=== PATIENT | female | born 1970 | race African-American/Black ===

== ENCOUNTER 2021-02-13 11:35 | Outpatient (REF) | payer MEDICARE, SELFPAY ==
--- NOTE | ~2021-02-13 | XR_ITS ---
EXAMINATION: XR LUMBOSACRAL SPINE CLINICAL INFORMATION: Sacrococcygeal disorders. COMPARISON: None TECHNIQUE: Three views of the lumbosacral spine. FINDINGS: Normal vertebral body alignment. The lumbar lordosis is maintained. No acute fracture or subluxation. No loss of vertebral body height. Mild loss of intervertebral disc height with tiny anterior endplate osteophytes at L3-L4 and L5-S1. Additional tiny anterior endplate osteophytes at L4-L5. Bilateral facet arthropathy at L3-S1. No lytic or blastic osseous lesion. IVC filter at the level of L2-L3. XR/XR lumbar spine 2-3V IMPRESSION: Mild degenerative disc disease at L3-S1 with bilateral facet arthropathy.
== END 2021-02-13 11:36 | disposition home or self-care (01) ==
LOC: HO.XRAY 11:35
PROVIDERS: PCP Nurse Practitioner Primary Care; Visit Provider Nurse Practitioner Primary Care
DX: M53.3 Sacrococcygeal disorders, not elsewhere classified (principal); R29.6 Repeated falls
CPT/HCPCS: 72100

== ENCOUNTER 2021-08-27 14:46 | Outpatient (REF) | payer MEDICARE, MEDICAID, SELFPAY ==
--- NOTE | ~2021-08-27 | MR_ITS ---
EXAMINATION: MR BRAIN WITHOUT AND WITH CONTRAST CLINICAL INFORMATION: History of breast cancer with brain metastasis. COMPARISON: Brain MRI 04/26/2014. TECHNIQUE: Multiplanar, multisequence imaging of the brain was performed before and after the intravenous administration of 10 mL of Gadavist. FINDINGS: No enhancing intracranial lesions are seen. There is no vasogenic edema, mass effect, or extra-axial fluid collection. Chronic encephalomalacia and gliosis is seen within the right lateral basal ganglia, insula, and temporal lobe. No recurrent mass is seen within this region. A 7 mm cavernous malformation is seen within the left frontal lobe. No perilesional edema is seen to suggest recent hemorrhage. A few punctate foci of susceptibility signal are seen in the bilateral cerebral hemispheres, nonspecific but presumably treatment related. The ventricles and sulci are commensurate with mild degree of diffuse brain parenchymal volume loss. The major arterial flow voids are preserved at the skull base. The extracranial structures are within normal limits allowing for postsurgical changes. MR/MR head/brain wo/w con IMPRESSION: No evidence of intracranial metastasis. A 7 mm cavernous malformation is seen in the left frontal lobe, new compared with 2013. No evidence of intracranial metastasis. Changes of prior craniotomy with encephalomalacia and gliosis seen in the right lateral basal ganglia, insula, and temporal lobe.
== END 2021-08-27 14:47 | disposition home or self-care (01) ==
LOC: HO.MRI 14:46
PROVIDERS: Visit Provider Nurse Practitioner Primary Care
DX: R26.81 Unsteadiness on feet (principal); R29.6 Repeated falls; Z85.3 Personal history of malignant neoplasm of breast
CPT/HCPCS: 70553; A9585

== ENCOUNTER 2023-02-18 12:59 | Outpatient (REF) | payer OTHER, MEDICAID, SELFPAY ==
--- NOTE | ~2023-02-18 | XR_ITS ---
EXAMINATION: XR ELBOW, LEFT CLINICAL INFORMATION: Left elbow pain 3 months COMPARISON: Left elbow radiograph from 06/30/2014 TECHNIQUE: AP, lateral, and oblique views of the left elbow. FINDINGS: Redemonstration of extensive hardware with plate and screw fixation involving the distal humerus and partially threaded screw involving the proximal ulna at the level of the olecranon. Orthopedic hardware is grossly intact. Questionable fracture fragment along the medial fixation plate best visualized on oblique image. This is not definitively visualized on prior imaging. Correlation with point tenderness. Enthesopathy along the triceps tendon insertion site. Joint spaces and alignment are otherwise maintained. Soft tissue swelling along the olecranon and proximal forearm. XR/XR elbow LT min 3V IMPRESSION: 1. Redemonstration of extensive hardware with plate and screw fixation involving the distal humerus and partially threaded screw involving the proximal ulna at the level of the olecranon. Orthopedic hardware is grossly intact. 2. Questionable fracture fragment along the medial fixation plate best visualized on oblique image. This is not definitively visualized on prior imaging. Correlation with point tenderness. 3. Enthesopathy along the triceps tendon insertion site. 4. Soft tissue swelling along the lateral and proximal forearm.
== END 2023-02-18 13:00 | disposition home or self-care (01) ==
LOC: HO.HHCX 12:59
PROVIDERS: Visit Provider Student in an Organized Health Care Education/Training Program
DX: M25.522 Pain in left elbow (principal)
CPT/HCPCS: 73080

== ENCOUNTER 2023-11-09 13:51 | Outpatient (AMB) | payer OTHER, MEDICAID, SELFPAY ==
--- NOTE | 2023-11-09 13:54 | A.OFFVIS_ITS ---
Intake Visit Reasons: N/P LT elbow pain & elbow olecranon bursitis. Intake Note: Hanh is a 53 year old female who presents today as a new patient for a evaluation of her left elbow pain. Patient reports ongoing pain for a about 3 months due to a fall. She states having a stinging sensation right on the elbow. Patient expresses having numbness and tingling off and on for about 3 months. Patient has tried icing and heat with no relief. Allergies Penicillins Allergy (Severe, Verified 11/09/23 13:59) UNRESPONSIVENESS aspirin [Aspirin] Allergy (Mild, Verified 11/09/23 13:59) SOUR STOMACH oxycodone [From Percocet] Allergy (Mild, Verified 11/09/23 13:59) ITCH, itching (moderate) acetaminophen [Tylenol] Allergy (Unknown, Verified 11/09/23 13:59) itching (moderate) penicillin G Allergy (Unknown, Verified 11/09/23 13:59) Unknown BuPROPion HCl Allergy (Unknown, Uncoded 02/06/20 00:00) rash,hives (severe) Penicillins Allergy (Unknown, Uncoded 03/22/20 15:09) Unknown HPI HPI N/P LT elbow pain & elbow olecranon bursitis.: Details: 53-year-old female who presents in the office today, as a new patient, for an evaluation of left elbow pain. Patient was seen by Family Medicine on 09/25/2023 status post a fall 3 months ago, in 06/2023. While in the office today the patient reports a fall about 5 months ago. She states she has had ongoing pain for the past 3 months. She reports a stinging sensation in the right elbow. Confirms intermittent numbness and tingling for the past 3 months. Confirms the use of ice and heat with no relief. Her reports they were applying an NORMAN wrap but was told to discontinue due to a break in the skin. She reports the break in the skin continues to ?leak?. Patient is was being followed by wound care for a small abrasion on the left elbow with delayed healing. Patient was previously prescribed Lidocaine topical cream. Patient has a history of a left distal humerus, medial and lateral plating, as well as fixation of the olecranon. Patient is wheelchair bound. [facility] Social History (Updated 05/20/24 @ 14:02 by Madelin Odonnell Alcohol intake: never Patient Tobacco Use Status: Current everyday Tobacco user Cigarette Packs Per Day: 1 Review of Systems Const All systems reviewed & are unremarkable except as noted in HPI and below Physical Exam Const General: cooperative and no acute distress Orientation/consciousness: patient oriented x3 Resp Effort & Inspection: normal respiratory effort and able to speak in complete sentences Cardio Peripheral pulses: Peripheral pulses 2+ throughout Skin General skin exam: no rashes or lesions noted Neuro General: patient oriented x3 Extrem Other: Left elbow: Dime sized area of skin irritation over the olecranon bursa. No active drainage. No surrounding erythema or edema. Patient has limited ROM from her prior ORIF, she is at baseline during today?s office exam. Assessment & Plan Assessment & Plan (1) Olecranon bursitis, left elbow: Code(s): M70.22 - Olecranon bursitis, left elbow Category: Medical Plan Ms. Clarke is a 53-year-old female who presents in the office today, as a new patient, for an evaluation of left elbow pain. Patient was seen by Family Medicine on 09/25/2023 status post a fall 3 months ago, in 06/2023. While in the office today the patient reports a fall about 5 months ago. She states she has had ongoing pain for the past 3 months. She reports a stinging s ensation in the right elbow. Confirms intermittent numbness and tingling for the past 3 months. Confirms the use of ice and heat with no relief. Her reports they were applying an NORMAN wrap but was told to discontinue due to a break in the skin. She reports the break in the skin continues to ?leak?. Patient is was being followed by wound care for a small abrasion on the left elbow with delayed healing. Patient was previously prescribed Lidocaine topical cream. Patient has a history of a left distal humerus, medial and lateral plating, as well as fixation of the olecranon. Patient is wheelchair bound. Patient was dressed with nonstick gauze, ABD and NORMAN wrapped in the office today. The NORMAN wrap is to be used to apply pressure to the area. Patient was educated on proper wrapping, and this was demonstrated in the office today. She was instructed to perform daily dressing changes and supplies were given to her to stop the olecranon bursa from draining. She was educated on signs of infection, which are as follows but not limited to erythema, edema, drainage, or warmth. If she is to experience any of these symptoms, she must contact the office immediately or present to the ED. Due to the patient being wheelchair bound I strongly recommend the use of padding and changing position to help relieve weight and pressure being added to the left elbow. Patient was educated she is able to take OTC Tylenol or Advil for pain. Follow up will be PRN, or sooner if needed. X-rays of the left elbow which were obtained while in the office today and were reviewed by me, Ruby Miranda PA-C, revealed intact orthopedic hardware with good alignment. Orders: Orders XR elbow LT min 3V 11/09/23 M25.529 - Pain in unspecified elbow Patient Instructions: Scribed by Blanca Crystal, certified medical records coder, for Ruby Miranda PA-C on 11/09/2023 at 2:28 pm, EST. Coding Level of Care Code New Pt Level 3 (21588) Diagnoses Olecranon bursitis, left elbow M70.22
== END 2023-11-09 14:48 | disposition home or self-care (01) ==
PROVIDERS: PCP Nurse Practitioner Primary Care; Visit Provider Physician Assistant
DX: M70.22 Olecranon bursitis, left elbow (principal)
CPT/HCPCS: 99203

== ENCOUNTER 2023-11-09 13:51 | Outpatient (REF) | payer MEDICARE, MEDICAID, SELFPAY ==
--- NOTE | ~2023-11-09 | XR_ITS ---
EXAMINATION: XR ELBOW, LEFT CLINICAL INFORMATION: Pain and unspecified elbow. COMPARISON: 02/18/2023, 06/30/2014. TECHNIQUE: Four views of the left elbow. FINDINGS: The bones are diffusely demineralized. Redemonstration of extensive hardware with plate and screw fixation transfixing the distal humerus and partially threaded screw involving the proximal ulna at the level of the olecranon. There has been development of increased lucency surrounding the [id number] portion of the ulnar component of the prosthesis when compared with exams dating back to 06/30/2014. Previously questioned fracture fragment along the medial fixation plate is best visualized on the oblique image as noted for exam of 02/18/2023 and was not appreciated on exam of 06/30/2014. Redemonstration of enthesopathy along the triceps tendon insertion site. XR/XR elbow LT min 3V IMPRESSION: Redemonstration of extensive hardware with plate and screw fixation transfixing the distal humerus and partially threaded screw involving the proximal ulna at the level of the olecranon. There has been development of increased lucency surrounding the [id number] portion of the ulnar component of the prosthesis when compared with exams dating back to 06/30/2014. Previously questioned fracture fragment along the medial fixation plate is best visualized on the oblique image as noted for exam of 02/18/2023 and was not appreciated on exam of June 30, 2014. This study was presented Thursday, November 23, 2023 for interpretation. PSA staff will provide results to referring provider at this time.
== END 2023-11-09 13:52 | disposition home or self-care (01) ==
LOC: HO.HOSX 13:51
PROVIDERS: PCP Nurse Practitioner Primary Care; Visit Provider Physician Assistant
DX: M70.22 Olecranon bursitis, left elbow (principal); M25.522 Pain in left elbow
CPT/HCPCS: 73080; 99202

== ENCOUNTER 2023-11-12 16:14 | Outpatient (REF) | payer MEDICARE, MEDICAID, SELFPAY ==
[2023-11-13 11:10] LABS: Bacterial Vaginosis PCR NEGATIVE (Negative); Candida Group PCR NOT DETECTED (Not Detect); Candida glab krusei PCR NOT DETECTED (Not Detect); Trichomonas vaginalis PCR NOT DETECTED (Not Detect)
== END 2023-11-12 16:15 | disposition home or self-care (01) ==
LOC: HO.HHCLNP 16:14
PROVIDERS: Visit Provider Nurse Practitioner Primary Care
DX: N89.8 Other specified noninflammatory disorders of vagina (principal)
CPT/HCPCS: 0352U; 87086

== ENCOUNTER 2024-09-27 16:53 | Outpatient (REF) | payer OTHER, SELFPAY ==
--- OUTSIDE RECORDS SUMMARY | 2024-09-27 19:12 | XMS_ITS | Clinical Summary ---
Author Organization [employer] Address [address] [facility] [address] [place] [address] Care Team Providers Care Carpentry Supervisor Name Role Phone Asuncion Contreras Primary Care Provider [phone] Allergies Active Allergy Reactions Criticality Noted Date Comments Acetaminophen 09/30/2016 Other reaction(s): itching Bupropion Rash High 12/08/2012 Other reaction(s): Hives / Skin Rash Oxycodone 09/30/2016 Other reaction(s): itching Penicillins 11/23/2012 Medications acitretin (Soriatane) 25 MG capsule Take 1 capsule by mouth in the morning. 01/31/20 22 Active Emollient (Eucerin Original Healing) lotion Use twice daily to feet 12/06/19 22 Active exemestane (Aromasin) 25 MG chemo tablet take 1 tablet (25MG) by oral route every morning Active QUEtiapine (SEROquel) 300 MG tablet Take 1 tablet by mouth in the morning. Active Banophen 50 MG capsule Take 1 capsule by mouth at bedtime. 05/08/20 22 Active ketoconazole (NIZOral) 2 % shampoo APPLY BY TOPICAL ROUTE EVERY 3 DAYS TO SCALP(S), LATHER, LEAVE IN PLACE FOR 5 MINUTES, AND THEN RINSE OFF WITH WATER 04/30/20 22 Active traZODone (Desyrel) 100 MG tablet Take 2 tablets by mouth in the evening. 03/27/20 22 Active lamoTRIgine (LaMICtal) 150 MG tablet Take 2 tablets by mouth 1 (one) time each day. Active Acetaminophen Extra Strength 500 MG tablet TAKE 1 TABLET BY MOUTH 3 TIMES A DAY,X30 DAYS 07/11/19 23 Active naltrexone (Depade) 50 MG tablet TAKE 1 TABLET BY MOUTH ONCE A DAY 06/30/19 23 Active perphenazine 4 MG tablet TAKE 1 TABLET BY MOUTH DAILY AND 2 TABLET BY MOUTH DAILY AT BEDTIME 06/30/19 23 Active betamethasone valerate (Valisone) 0.1 % ointment Apply topically if needed in the morning and at bedtime (psoriasis). 45 g 2 09/13/19 23 Active albuterol 108 (90 Base) MCG/ACT inhaler Inhale 2 puffs every 4 (four) hours if needed for wheezing. 18 g 1 09/13/19 23 Active cholecalciferol 10 MCG (400 UNIT) tabletIndicatio ns:Vitamin D deficiency TAKE 1 TABLET ONCE DAILY 90 tablet 1 09/03/19 24 Active ondansetron (Zofran) 4 MG tablet 09/21/19 24 Active omeprazole (PriLOSEC) [address] capsuleIndicati ons:Chronic GERD TAKE 1 CAPSULE (20 MG) BY MOUTH BEFORE BREAKFAST AND BEFORE EVENING MEAL. 60 capsule 4 05/25/20 24 Active metoprolol succinate XL (Toprol-XL) 50 MG 24 hr tabletIndicatio ns:Primary hypertension TAKE 1 TABLET (50 MG) BY MOUTH ONCE PER DAY. DO NOT CRUSH OR CHEW. 30 tablet 08/26/19 25 Active gabapentin (Neurontin) 300 MG capsuleIndicati ons:Cervical stenosis of spine TAKE 2 CAPSULES BY MOUTH THREE TIMES EVERY DAY 180 capsule 08/26/19 25 Active apixaban (Eliquis) 5 MG tabletIndicatio ns:History of pulmonary embolism TAKE 1 TABLET (5 MG) BY MOUTH IN THE MORNING AND AT BEDTIME. 60 tablet 09/13/19 25 Active senna-docusate (Stool Softener/Laxati ve) 8.6-50 MG tablet TAKE 2 TABLETS BY MOUTH EVERY DAY FOR CONSTIPATION 60 tablet 3 09/14/19 25 Active tamsulosin (Flomax) 0.4 MG 24 hr capsule TAKE 1 CAPSULE BY MOUTH EVERY DAY 30 capsule 5 09/22/19 25 Active Multiple Vitamins-Minera ls (CertaVite Senior/Antioxid ant) tablet TAKE 1 TABLET BY MOUTH EVERY DAY 30 tablet 5 09/22/19 25 Active nitrofurantoin, macrocrystal-mo nohydrate, (Macrobid) 100 MG capsuleIndicati ons:Hematuria, unspecified type Take 1 capsule (100 mg) by mouth 2 times daily for 5 days. 10 capsule 09/27/19 25 2024 Active lidocaine (Xylocaine) 5 % ointmentIndicat ions:Chronic elbow pain, left Apply topically if needed (pain). 50 g 2 09/25/19 24 2024 tamsulosin (Flomax) 0.4 MG 24 hr capsule TAKE 1 CAPSULE BY MOUTH EVERY DAY 30 capsule 5 04/06/20 24 2024 Discontinued Multiple Vitamins-Minera ls (PX Complete Senior Multivits) tablet TAKE 1 TABLET BY MOUTH EVERY DAY 30 tablet 5 04/06/20 24 2024 Discontinued senna-docusate (Stool Softener/Laxati ve) 8.6-50 MG tablet TAKE 2 TABLETS BY MOUTH EVERY DAY FOR CONSTIPATION 60 tablet 4 04/18/20 24 2024 Discontinued apixaban (Eliquis) 5 MG tabletIndicatio ns:History of pulmonary embolism TAKE 1 TABLET (5 MG) BY MOUTH IN THE MORNING AND AT BEDTIME. 60 tablet 08/09/19 25 2024 Discontinued Active Problems Patient Care Coordination No te Formatting of this note migh t be different from the original. Pt presented to [facility] at baseline level of health. Pt requested a PT referral to [facility] for out patient PT. Pt has ongoing difficulty with balance. This flex o writer operator contacted pt's PCP (THOMAS Alonzo) who gave a V.O. to initiate referral request. Problem Noted Date Diagnosed Date HTN (hypertension) 04/26/2024 Cervical stenosis of spine 10/27/2023 Overview (06/28/2024): Last Assessment & Plan: Patient comes in for cervical stenosis. She has history of a stroke 2010 that left her with left LE >UE hemiparesis, I looked through years of notes in [facility] records, PT eval October 2022 and other notes from 2022 state patient is ambulating with a 4 wheeled walker. Patient is a poor historian, it was difficult to get a clear picture of symptoms, medical history and years of onset, however it seems based on what I am getting from patient, and her 2 companions, Dr. Mao's notes, over the last couple months patient is having difficulty going from sitting to standing, bathing without assistance, walking, even standing independently, which is different than where she has been at after her stroke. She states her balance is getting worse, she notes she is dropping things more frequently, cannot hold utensils well on her left hand. Denies any hand cramping. When asked what was the last time she walked, her and her significant other stated about a year ago initially, had another time mentioned that the last few months her walking is worse. Also they state the last couple months her balance and standing is much worse, she can only stand for a couple seconds at a time. Patient states she has had neck pain for about 1 year, rates her neck pain 9/10. She has chronic left elbow pain, has been seen by orthopedics, imaging shows possible loosening of hardware, but nothing significant that is surgical, did have history of infection in June was at [facility] and [facility], on antibiotics. Patient went for her first outpatient PT visit yesterday at [facility] Dr. Fernandez's note mentions that she falls twice a month, no injuries with the fall. Patient states her COPD is in good control, no diabetes, no recent drug or alcohol use, no history of MS, liver or kidney disease. Ms. Clarke had C-spine MRI 07/21/2023 at [facility] with findings of C3-4 right paracentral disc herniation with moderate stenosis, C5-6 severe central stenosis with mass effect on the spinal cord without signal change in the spinal cord, C6-7 moderate stenosis, multilevel foraminal stenosis. I reviewed the MRI images with the patient and her 2 companions On the computer. I will review her case with Dr. Macias, see if she recommends any surgical intervention for the central stenosis. Patient has multiple medical issues, is on Eliquis, she would have to be cleared for surgery and to be off her Eliquis before and after surgery. we discussed possible surgical in detail, including potential for no improvement in symptoms, risk of hematoma, infection, stroke, need for general anesthesia. She states if Dr. Macias offered her surgery she would like to try it since she is getting worse in terms of standing, balance, walking, dropping things with the left hand the last few months. All questions answered. ADDENDUM: I reviewed patient's MRI with Dr. 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 She states patient has some kyphosis around C5-6, she is not sure if patient would benefit from posterior approach for decompression versus vertebrectomy, she will evaluate after CT is completed. 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 02/20/2023 Assessment & Plan (02/20/2023 6:02 AM EDT): Pt w Hx of stroke w L side hemiparesis. Ambulates w rolling walker. W no report of CV Sx, at high risk of falling. Lost PT care Denies any drug use Pt w chronic imbalance - note from neurologist's office suspects it might be due to paraneoplastic phenomenon. MR Brain W WO - 01/29/22 - Mild cerebral parenchymal volume loss with compensatory enlargement of the ventricular system. Chronic right frontotemporal encephalomalacia subjacent to craniotomy includes insular cortex encephalomalacia with frontotemporal T2 hyperintense gliosis and ex vacuo dilatation of the right temporal horn and sylvian fissure. Anterior left frontal lobe and right parietal lobe chronic microhemorrhage signal; similar when compared to 2019. No abnormal signal on the axial diffusion weighted sequence to suggest the presence of an acute ischemic event. Essentially clear mastoid air cells. Left maxillary sinus mucus retention cyst. Cerebellar tonsils normal in position. No abnormal enhancement or enhancing lesion. No focal suspicious enhancing bone marrow lesion. IMPRESSION: No acute intracranial abnormality or enhancing metastatic lesion. CT head 01/21/2023: generalized cerebral volume loss, encephalomalacic changes in R insula consistent w chronic infarct - unchanged. CT cervical spine 01/21/2023: cervical disc degenerative changes w BL bony neural foraminal narrowing. -Referred today to home PT/OT - requested nurse staff for referral. -Referred to [facility] PT rehab for motorized wheelchair evaluation, requested by . -Request nurse staff for shower chair requested by . -Due to new reported diplopia for the past 2 wk, referred today for brain MRI and to scheduling specialist. -I called today her neurologist Dr. Mao - who informed that pt has not been following for a long time. -MA today will help w scheduling apt for neurologist. -Advised to f up w PCP in the next 3-4 wk. Chronic elbow pain, left 02/20/2023 Assessment & Plan (02/20/2023 5:59 AM EDT): Acute on chronic L elbow pain w Hx of Qx and small wound opening on elbow, w no major discharge, but no closing for the past mo. Last HbA1c was normal at 5.4 on 04/2022. -Tylenol PRN. -L elbow XR referred today and will refer to ortho depending on findings. -Start Keflex BID for 5 d (pt w Penicillin allergy - I called her pharmacy today and confirmed she has been prescribed Keflex before w no reported allergies). Also start Mupirocin TID for 10 d. -To f w PCP in next 2-4 wk to monitor wound. Left-sided weakness 09/12/2022 Asthma 06/04/2022 Malignant neoplasm of breast 06/04/2022 Cerebrovascular accident (CVA) 06/04/2022 Depressive disorder 06/04/2022 Gastroesophageal reflux disease 06/04/2022 Migraine headache 06/04/2022 Neoplasm of brain 06/04/2022 Pulmonary embolism 06/04/2022 Tendinitis of foot 06/04/2022 History of cardioembolic cerebrovascular acciden t (CVA) 05/26/2022 History of pulmonary embolus (PE) 05/26/2022 History of right breast cancer 05/26/2022 Bursitis of left elbow 03/23/2022 Presence of IVC filter 03/23/2022 Immature cataract 11/23/2017 Peripheral visual field defect 11/23/2017 Presbyopia 11/23/2017 Visual impairment 11/23/2017 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 11/15 Bipolar II disorder 12/11/2011 Cocaine dependence in remission 12/11/2011 Resolved Problems Problem Noted Date Diagnosed Date Resolved Date Lower urinary tract infectious disease 01/11/2013 06/28/2024 Encounters Date Type Department Care Team Description 09/27/2024 Refill [facility] [address] [place] [address] Asuncion Contreras ANP Cervical stenosis of spine 09/27/2024 Telephone [facility] [address] [place] [address] Asuncion Contreras ANP 09/26/2024 2:30 PM EDT Office Visit [facility] [address] [place] [phone] Asuncion Contreras ANP Screening for malignant neoplasm of colon (Primary Dx); Left-sided weakness; Dysuria; Hematuria, unspecified type 09/26/2024 Travel 09/20/2024 Refill [facility] [address] [place] [address] Asuncion Contreras ANP 09/16/2024 Patient Outreach [facility] [address] [place] [address] Asuncion Contreras ANP Pre-visit Planning (SDOH Screening negative and Tobacco screening positive) 09/12/2024 Refill [facility] [address] [place] [address] Asuncion Contreras ANP 09/12/[address] [address] Asuncion Contreras ANP Med Refill 09/12/2024 Refill [facility] [address] [place] [address] Luis Fernando Oliver MD History of pulmonary embolism 08/31/2024 Telephone [facility] [address] [place] [address] Asuncion Contreras ANP Durable Medical Equipment (Power scooter) 08/25/2024 Refill [facility] [address] [place] [address] Asuncion Contreras ANP Primary hypertension; Cervical stenosis of spine 08/09/2024 Telephone [facility] [address] [place] [phone] Asuncion Contreras ANP Nurse Triage 08/09/2024 Refill [facility] [address] [place] [address] Asuncion Contreras ANP History of pulmonary embolism 07/27/2024 Refill [facility] [address] [place] [address] Asuncion Contreras ANP Cervical stenosis of spine 07/15/2024 Telephone [facility] [address] [place] [address] Ana Dobbins MA Precious recall 2024 Telephone [facility] [address] [place] [address] Yousuf Iraheta MA DME from [facility] 06/29/2024 Orders Only [facility] [address] [place] [address] Provider, MD Kiran from Last 3 Months Immunizations Name Administration Dates Next Due Influenza injectable quadriv alent IIV4 with preservative 04/14/2016 Influenza injectable quadriv alent preservative free 04/29/2022,07/06/2020 Influenza, IIV3, injectable 04/29/2022,0 07/06/2020,04/14/2016,2013,03/15/2013 Influenza, Split (incl. paul fied surface antigen) 03/15/2013 Influenza, seasonal, injecta ble, preservative free 04/29/2022,07/06/2020,04/14/2016,2012 Ascencion SARS-CoV-2 Vaccination 11/08/2020 Moderna Covid-19 Vaccine 12+ 07/09/2021 Pfizer Covid-19 Vaccine 12+ 09/26/2024 Pneumococcal Conjugate PCV 20 09/26/2024 TD (adult), 2 Lf tetanus tox oid, preservative free, adsorbed 04/29/2022 Tdap 04/29/2022,07/06/2020 Social History Tobacco Use Types Packs/Day Years Used Date Smoking Tobacco: Every Day Cigarettes Passive Smoke Exposure: Current Smokeless Tobacco: Never Tobacco Cessation:Ready to Q uit: Not Asked; Counseling Given: Not Answered Alcohol Use Standard Drinks/Week Comments Not Currently 0 (1 standard drink = 0.6 oz pur e alcohol) Depression Answer Date Recorded Patient Health Questionnaire-9 Score 9 09/26/2024 Patient Health Questionnaire-9 Score 9 09/26/2024 Last PHQ-9: Questionnaire Data Not on file 0 09/26/2024 Housing Stability Answer Date Recorded What is your housing situation today? I have jossy calzada 09/25/[address] you li ve. Do you have problems with any of the following? None of the above 09/25/2023 Food Insecurity Answer Date Recorded Within the past 12 months, y ou worried that your food would run out before you got money to buy more: Never True 09/25/2023 Within the past 12 months,th e food you bought just didn't last and you didn't have enough money to get more: Never True 10/2023 Transportation Answer Date Recorded In the past 12 months, has l ack of transportation kept you from medical appts, meetings, work or from getting things needed for daily living? No 09/25/2023 Utilities Answer Date Recorded In the past 12 months, has t he electric, gas, oil or water company threatened to shut off services in your home? No 09/25/2023 Depression Answer Date Recorded Patient Health Questionnaire-2 Score 2 09/26/2024 Internet Access Answer Date Recorded Internet Access Q1 Yes 09/16/2024 Internet Access Q2 Not on file 09/16/2024 Comments Unknown Sex and Gender Information Value Date Recorded Sex Assigned at Female 04/21/2022 10:21 AM EDT Legal Sex Female 10:21 AM EDT Gender Identity Female 04/21/2022 10:21 AM EDT Sexual Orientation Straight 04/21/2022 10 :21 AM EDT Last Filed Vital Signs Vital Sign Reading Time Taken Comments Blood Pressure 108/67 09/26/2024 3:08 PM EDT Pulse 66 09/26/2024 3:08 PM EDT Temperature 35.8 ??C (96.4 ??F) 09/26/2024 3:08 PM ED T Respiratory Rate 14 09/26/2024 3:08 PM EDT Oxygen Saturation 99% 09/26/2024 3:08 PM EDT Inhaled Oxygen Concentration - - Weight 77.6 kg (171 lb) 09/26/2024 3:08 PM EDT Height 162.6 cm (5' 4 ) 11/12/2023 10:19 AM EDT Body Mass Index 29.35 11/12/2023 10:19 AM EDT Plan of Treatment Upcoming Encounters Date Type Department Care Team (Late st Contact Info) Description 01/09/2025 3:15 PM EDT Office Visit [facility] [address] [place] [address] Asuncion Contreras ANP [address] [place] [address] Health Maintenance Due Date Last Done Comments CT Colonography 1968 Colonoscopy 1968 Colorectal Cancer Screening 1968 FIT DNA/Cologuard 1968 FIT 1968 FOBT 1968 Sigmoidoscopy 1968 Alcohol/Substance Use Screening 1980 Hepatitis B Vaccines (1 of 3 - 19+ 3-dose series) 1987 Pap Smear 1989 HPV/Cotest 1998 Zoster Vaccines (1 of 2) 2018 Mammogram 10/29/2021 10/29/2020 Influenza Vaccine (#1) 2024 , 04/29/2022, 04/29/2022, Additional history exists Depression Monitoring (PHQ-9) 03/28/2025 09/26/2024, 09/26/2024 SDOH Screening 09/16/2025 09/16/2024 Depression Screening 09/26/2025 09/26/2024, 09/27/19 25 Tobacco Screening 09/26/2025 09/26/2024 Lipid Panel 04/29/2027 04/29/2022, 09/2 12/2020, 01/21/2021 DTaP/Tdap/Td Vaccines (4 - Td or Tdap) 04/29/2032 04/29/2022, 04/29/2022, 07/06/2020 RSV Patients and Patients Aged 60 years or older (1 - 1-dose 75+ series) 2043 HIV Screening Completed 01/21/2021 Hepatitis C Screening Completed 01/21/2021 COVID-19 Vaccine Completed 09/26/2024, , 11/08/2020 Pneumococcal Vaccine: 50+ Years Completed 09/26/2024 Cervical Cancer Screening Discontinued HIB Vaccines Aged Out No longer eligi ble based on patient's age to complete this topic HPV Vaccines Aged Out No longer eligi ble based on patient's age to complete this topic Hepatitis A Vaccines Aged Out No long er eligible based on patient's age to complete this topic IPV Vaccines Aged Out No longer eligi ble based on patient's age to complete this topic Meningococcal Vaccine Aged Out No cayla doris eligible based on patient's age to complete this topic RSV under 20 months Aged Out No longe r eligible based on patient's age to complete this topic Rotavirus Vaccines Aged Out No longer eligible based on patient's age to complete this topic Procedures Procedure Name Priority Date/Time Associated Diagnosis Comments POCT URINALYSIS DIPSTICK Routine 09/26/2024 3:59 PM EDT Dysuria LIPID PANEL, STANDARD Routine 04/29/2022 11:24 AM EST ZZZ HISTORICAL HEPATITIS C AB W/REFL TO HCV RNA, QN, PCR Routine 01/21/2021 9:46 AM EDT HIV 1/2 ANTIGEN/ANTIBODY, FOURTH GENERATION W/RFL Routine 01/21/2021 9:46 AM EDT HM MAMMOGRAPHY Routine 10/29/2020 from Last 3 Months or Most Recently Relevant to Health Maintenance Results * (ABNORMAL) POCT Urinalysis (09/26/2024 3:59 PM EDT) Color, UA Yellow Clarity, UA Clear Glucose, UA Negative Bilirubin, UA Trace Comment:small Ketones, UA Positive Comment:trace Spec Grav, UA 1.030 Blood, UA Positive(A) Negative, None Detected Comment:moderate pH, UA 6.0 Protein, UA Trace Comment:100 mg/dl Urobilinogen, UA 0.2 Leukocytes, UA Trace Negative, Rare, Trace Comment:small Nitrite, UA Negative Negative, None Detected Appearance, UA yellow QC Media Lot # [id number] Lot# Expiration Date [id number] Urine 09/26/2024 3:59 PM EDT [facility] POINT OF CARE TEST ENTER/EDIT OR DERABLES Final Result * (ABNORMAL) LIPID PANEL, STANDARD (04/29/2022 11:24 AM EST) Chol/HDLC Ratio 3.6 <5.0 (calc) CONVERTED LEGACY LABS Cholesterol, Total 230(H) <200 mg/dL CONVERTED LEGACY LABS HDL Cholesterol 64 > OR = 50 mg/dL CONVERTED [facility]GACY LABS LDL Cholesterol 139(H) mg/dL (calc) CONVERTED LEGACY LABS Comment: Reference range: <100 ?? Desirable range <100 mg/dL for primary prevention; ?? <70 mg/dL for patients with CHD or diabetic patients ?? with > or = 2 CHD risk factors. ?? LDL-C is now calculated using the Narciso ?? calculation, which is a validated novel method providing ?? better accuracy than the Friedewald equation in the ?? estimation of LDL-C. ?? Micha DANIELS et al. ROXANNA. 2013;310(19): 5048-2387 ?? (http://Real Savvy.Grinbath/faq/MLS768) Non-HDL Cholesterol 166(H) <130 mg/dL (calc) CONVERTED LEGACY LABS Comment: For patients with diabetes plus 1 major ASCVD risk ?? factor, treating to a non-HDL-C goal of <100 mg/dL ?? (LDL-C of <70 mg/dL) is considered a therapeutic ?? option. Triglycerides 143 <150 mg/dL CONVE RTED LEGACY LABS 04/29/2022 11:2 4 AM EST [facility] LAB BLOOD ORDERABLES Final Resul t CONVERTED LEGACY LABS * HEPATITIS C AB W/REFL TO HCV RNA, QN, PCR (01/21/2021 9:46 AM EDT) HEPATITIS C ANTIBODY NON-REACT [place] NON-REACT [facility] INDEX 0.01 <1.00 [facility] Comment: ?? HCV antibody was non-reactive. There is no laboratory ?? evidence of HCV infection. ?? In most cases, no further action is required. However, if recent HCV exposure is suspected, a test for HCV RNA (test code 28054) is suggested. ?? For additional information please refer to http://Real [email or web address]/faq/VAS20o1 (This link is being provided for informational/ educational purposes only.) ?? 01/21/2021 9:46 AM EDT Asuncion Contreras ANP HISTORICAL/NON ORDERABLE LABS Fi nal Result Performing Organization Address [facility] Phone Number [facility] [address] * HIV 1/2 ANTIGEN/ANTIBODY,FOURTH GENERATION W/RFL (01/21/2021 9:46 AM EDT) HIV-1/2 ANTIGEN AND ANTIBODIES, 4TH GENERATION W/ REFLEX NON-REACT [facility] NON-REACT [facility] Comment: HIV-1 antigen and HIV-1/HIV-2 antibodies were not detected. There is no laboratory evidence of HIV infection. ?? PLEASE NOTE: This information has been disclosed to you from records whose confidentiality may be protected by state law. ??If your state requires such protection, then the state law prohibits you from making any further disclosure of the information without the specific written consent of the person to whom it pertains, or as otherwise permitted by law. A general authorization for the release of medical or other information is NOT sufficient for this purpose. ? For additional information please refer to http://education.BeautyTicket.com/faq/HNR738 (This link is being provided for informational/ educational purposes only.) ? The performance of this assay has not been clinically validated in patients less than 2 years old. ?? 01/21/2021 9:46 AM EDT Asuncion Contreras ANP LAB BLOOD ORDERABLES Final Resul t Performing Organization Address [facility] Phone Number [facility] [address] * Mammography (10/29/2020) Mammogram PERFORMED Anatomical Region Laterality Modality Other Historical Provider HEALTH MAINTENANCE Final Result from Last 3 Months or Most Recently Relevant to Health Maintenance Insurance [facility] ST[facility] Care Teams Carpentry Supervisor Relationship Specialty Start Date End Date Asuncion Contreras ANP [address] [place] [id number] PCP - General Family Medicine 12/12/19 [employer] 02/01/24
--- OUTSIDE RECORDS SUMMARY | 2024-09-27 19:12 | XMS_ITS | Encounter Summary ---
Author Organization [employer] Address [address] [facility] [address] 7t [place] [address] Care Team Providers Care Clay House Worker Name Role Phone Asuncion Contreras Primary Care Provider [phone] Encounter Details Date Type Department Care Team ([facility] st Contact Info) Description 09/27/2024 Telephone [facility] MEDICINE [address] [place], [place] [phone] Asuncion Contreras ANP [address] [place], [place] [phone] Social History Tobacco Use Types Packs/Day Years Used Date Smoking Tobacco: Every Day Cigarettes Passive Smoke Exposure: Current Smokeless Tobacco: Never Alcohol Use Standard Drinks/Week Comments Not Currently [...] Orientation Straight 04/21/2022 10 :21 AM EDT documented as of this encounter Miscellaneous Notes * Telephone Encounter - Candice Mclaughlin RN - 09/27/2024 10:48 AM EDT ----- Message from Asuncion Contreras sent at 09/26/2024 5:45 PM EDT ----- Please let patient know I am sending 5 days of antibiotics for possible UTI. Will await urine culture results however she really needs to drink more water - at least 1.5 L daily -and please give her the phone number to contact urology for follow-up as referred in April. TC placed to patient and and the message above was discussed, pt states she has an appointment withUrology today. She will pickup medication and star. * Telephone Encounter - Candice Mclaughlin RN - 09/27/2024 10:04 AM EDT ----- Message from Asuncion Contreras sent at 09/26/2024 5:45 PM EDT ----- Please let patient know I am sending 5 days of antibiotics for possible UTI. Will await urine culture results however she really needs to drink more water - at least 1.5 L daily -and please give her the phone number to contact urology for follow-up as referred in April. documented in this encounter Plan of Treatment Upcoming Encounters Date Type Department Care Team (Late st Contact Info) Description 01/09/2025 3:15 PM EDT Office Visit [facility] MEDICINE [address] [place] [address] Asuncion Contreras ANP [address] [place] [address] documented as of this encounter Visit Diagnoses Not on filedocumented in this encounter Additional Health Concerns Assessment Noted Time PHQ-9 Depression Total Score: 9 09/27/19 25 4:02 PM EDT documented as of this encounter Care Teams Clay House Worker Relationship Specialty Start Date End Date Asuncion Contreras ANP [address] [place] [address] PCP - General Family Medicine 12/12/19 [employer] 02/01/24 documented as of this encounter
--- OUTSIDE RECORDS SUMMARY | 2024-09-27 19:12 | XMS_ITS | Encounter Summary ---
Author Organization [employer] Address [address] [place] [address] 7t [place] [address] Care Team Providers Care Coverer Name Role Phone Asuncion Contreras Primary Care Provider [phone] Encounter Details Date Type Department Care Team (Late st Contact Info) Description 04/08/2023 Orders Only [facility]S [address] [place], [place] [phone] Arjun Samson MD [address] [place] [address] Social History Tobacco Use Types Packs/Day Years Used Date Smoking Tobacco: Every Day Cigarettes Smokeless Tobacco: Never Alcohol Use Standard Drinks/Week Comments Not Currently 0 (1 standard drink = 0.6 oz pur e alcohol) Comments Unknown Sex and Gender Information Value Date Recorded Sex Assigned at Female 04/21/2022 10:21 AM EDT Legal Sex Female 10:21 AM EDT Gender Identity Female 04/21/2022 10:21 AM EDT Sexual Orientation Straight 04/21/2022 10 :21 AM EDT documented as of this encounter Plan of Treatment Upcoming Encounters Date Type Department Care Team (Late st Contact Info) Description 01/09/2025 3:15 PM EDT Office Visit [facility] MEDICINE [address] [place] [address] Asuncion Contreras ANP [address] [place] [address] documented as of this encounter Visit Diagnoses Not on filedocumented in this encounter Care Teams Coverer Relationship Specialty Start Date End Date Asuncion Contreras ANP [address] [place] [address] PCP - General Family Medicine 12/12/19 [employer] 02/01/24 documented as of this encounter
--- OUTSIDE RECORDS SUMMARY | 2024-09-27 19:12 | XMS_ITS | Encounter Summary ---
Author Organization [employer] Address [address] [facility] [address] [facility] [address] 7t [place] [address] Care Team Providers Care Sectional Belt Mold Assembler Name Role Phone Asuncion Contreras Primary Care Provider [phone] Reason for Visit * Reason Comments Med Refill Encounter Details Date Type Department Care Team ([facility] st Contact Info) Description 11/16/2023 Refill [facility] MEDICINE [address] [place], [place] [phone] Asuncion Contreras ANP [address] [place], [place] [phone] Vitamin D deficiency Social History Tobacco Use Types Packs/Day Years Used Date Smoking Tobacco: Every Day Cigarettes Passive Smoke Exposure: Current Smokeless Tobacco: Never Alcohol Use Standard Drinks/Week Comments Not Currently 0 (1 standard drink = 0.6 oz pur e alcohol) Depression Answer Date Recorded Patient Health Questionnaire-9 Score 0 09/25/2023 Patient Health Questionnaire-9 Score 0 09/25/2023 Last PHQ-9: Questionnaire Data Not on file 0 09/25/2023 Housing Stability Answer Date Recorded What is [...] Answer Date Recorded Patient Health Questionnaire-2 Score 0 09/25/2023 Comments Unknown Sex and Gender Information Value [...] Description 01/09/2025 3:15 PM EDT Office Visit [facility] MEDICINE [address] [place] [address] Asuncion Contreras ANP [address] [place] [address] documented as of this encounter Visit Diagnoses Diagnosis Vitamin D deficiency documented in this encounter Additional Health Concerns Assessment Noted Time PHQ-9 Depression Total Score: 0 09/25/19 24 3:01 PM EDT documented as of this encounter Care Teams Sectional Belt Mold Assembler Relationship Specialty Start Date End Date Asuncion Contreras ANP [address] [place] [address] PCP - General Family Medicine 12/12/19 [employer] 02/01/24 documented as of this encounter
--- OUTSIDE RECORDS SUMMARY | 2024-09-27 19:12 | XMS_ITS | Encounter Summary ---
Author Organization [employer] Address [address] [place] [address] 7t [place] [address] Care Team Providers Care Flight Dispatcher Name Role Phone Asuncion Contreras Primary Care Provider Encounter Details Date Type Department Care Team (Late st Contact Info) Description 07/19/2022 Orders Only [facility] MEDICINE [address] [place] [address] Rob Morris PharmD ERRONEOUS ENCOUNTER--DISREGARD (Primary Dx) Social History Tobacco Use Types Packs/Day Years Used Date Smoking Tobacco: Never Assessed Comments Unknown Sex and Gender Information Value [...] Description 01/09/2025 3:15 PM EDT Office Visit [facility] MEDICINE [address] [place] [address] Asuncion Contreras ANP [address] [place] [address] documented as of this encounter Visit Diagnoses Diagnosis ERRONEOUS ENCOUNTER--DISREGARD- Primary documented in this encounter Care Teams Flight Dispatcher Relationship Specialty Start Date End Date Asuncion Contreras ANP [address] [place] [address] PCP - General Family Medicine 12/12/19 [employer] 02/01/24 documented as of this encounter
--- OUTSIDE RECORDS SUMMARY | 2024-09-27 19:12 | XMS_ITS | Encounter Summary ---
Author Organization [employer] Address [address] [facility] [address] 7t [place] [address] Care Team Providers Care Manager Field Sales Name Role Phone Asuncion Contreras Primary Care Provider [phone] Encounter Details Date Type Department Care Team (Latest Contact Info) Description 09/26/2024 Travel Social History Tobacco Use Types Packs/Day Years [...] Description 01/09/2025 3:15 PM EDT Office Visit [facility] MEDICINE [address] [place] [address] Asuncion Contreras ANP [address] [place] [address] documented as of this encounter Visit Diagnoses Not on filedocumented in this encounter Additional Health Concerns Assessment Noted Time PHQ-9 Depression Total Score: 9 09/27/19 25 4:02 PM EDT documented as of this encounter Care Teams Manager Field Sales Relationship Specialty Start Date End Date Asuncion Contreras ANP [address] [place] [address] PCP - General Family Medicine 12/12/19 [facility] 02/01/24 documented as of this encounter
--- OUTSIDE RECORDS SUMMARY | 2024-09-27 19:12 | XMS_ITS | Encounter Summary ---
Author Organization [employer] Address [address] [place] [address] 7t [place] [address] Care Team Providers Care Qa Consultant Name Role Phone Asuncion Contreras Primary Care Provider [phone] Reason for Referral * Consultation (Routine) - Pending Review Specialty Diagnoses / Procedures Referred By Dimitris schneider Referred To Contact Gastroenterology Diagnoses Screening for malignant neoplasm of colon Asuncion Contreras ANP [address] [place] [address] Phone: tel: fax: Referral ID Status Reason Start Date Expiration Date Visits Requested Visits Authorized [id number] Pending Review Specialty Services Required 09/26/2024 09/26/2025 1 1 Reason for Visit * Reason Comments Annual Exam Encounter Details Date Type Department Care Team (Late st Contact Info) Description 09/26/2024 2:30 PM EDT Office Visit [facility] MEDICINE [address] [place], [place] [phone] Asuncion Contreras ANP [address] [place] [address] Screening for malignant neoplasm of colon (Primary Dx); Left-sided weakness; Dysuria; Hematuria, unspecified type Social History Tobacco Use Types Packs/Day Years [...] AM EDT documented as of this encounter Last Filed Vital Signs Vital Sign Reading Time Taken Comments Blood Pressure 108/67 09/26/2024 3:08 PM EDT Pulse 66 09/26/2024 3:08 PM EDT Temperature 35.8 ??C (96.4 ??F) 09/26/2024 3:08 PM ED T Respiratory Rate 14 09/26/2024 3:08 PM EDT Oxygen Saturation 99% 09/26/2024 3:08 PM EDT Inhaled Oxygen Concentration - - Weight 77.6 kg (171 lb) 09/26/2024 3:08 PM EDT Height - - Body Mass Index 29.35 11/12/2023 10:19 AM EDT documented in this encounter Progress Notes * MERRICK Souza - 09/26/2024 2:30 PM EDT SUBJECTIVE: Hanh Clarke is a 54 y.o. year old female who presents for comprehensive exam . Acute Concerns: HM needs: c-scope (re-referral today), pap (s/p hysto), flu/COVID/shingrix/PNA (accepts COVID and PNA) Feels much better in regards to dizziness status post C5-6, C6-7 ACDF with plating on 04/14/2024 byDr. Macias. Her mobility has improved a lot since then. 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 She does continue to need evaluation for mobility scooter and new referral for this [facility]. This is at least the fourth referral of similar kind that we have made for this patient and for a variety of reasons including insurance challenges and coordination of care challenges this has yet to be completed. She does report that she actually did have 1 visit to her house where someone evaluated her with an electric scooter but very quickly decided she could not use 1 due to dif ficulty using the joystick. However Hanh and her partner are confident that she can learn to do this. At the end of visit she reports she has very thick urine that is malodorous and sometimes with blood. She also reports burning when she pees. Not clear how long symptoms have been present. She drinks very little water, maybe 2 x 8 ounces daily From last heme/onc note 06/28/24 53 year old female with history of bipolar disorder, drug use, HTN, metastatic breast cancer ER+CO-HER2- with brain mets status post resection and RT. She continues to have sporadic follow up Will repeat imaging studies and labs. Metastatic Breast cancer ER+ CO-HER2- dx'd January 2003 Continue on exemestane Monitor for side effects of hormonal therapy Labs ordered today cbc cmp Multiple missed attempts for brain MRI and DXA appts - will try to reschedule again Return here in 3-4 months Hypercalcemia- resolved Laboratory testing ordered to be done today CBC, CMP Calcium level has returned to normal at 10.2. She is going to start doing day program at [facility]. Working w/ [facility] controls operator molded goods Melissa who is assisting. We sent new referral to [facility] for PT/OT eval for power scooter. Started smoking at 15yo, always smoked 4 cigs/d - PYH 10 Social History Social History Narrative Not on file Patient Active Problem List Diagnosis Bipolar II disorder (CMS/HCC) Immature cataract Peripheral visual field defect Presbyopia Visual impairment History of cardioembolic cerebrovascular accident (CVA) History of pulmonary embolus (PE) History of right breast cancer Asthma Bursitis of left elbow Malignant neoplasm of breast (CMS/HCC) 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 (CMS/HCC) Cocaine dependence in remission (CMS/HCC) Cerebrovascular accident (CVA) (CMS/HCC) Depressive disorder Gastroesophageal reflux disease Migraine headache Neoplasm of brain (CMS/HCC) Presence of IVC filter Pulmonary embolism (CMS/HCC) Tendinitis of foot Left-sided weakness 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 Chronic elbow pain, left Cervical stenosis of spine HTN (hypertension) Past Surgical History: Procedure Laterality Date IR IVC FILTER PLACEMENT No family history on file. Review of Systems Constitutional: Negative for chills and fever. HENT: Negative for sore throat. Eyes: Negative for visual disturbance. Respiratory: Negative for cough and shortness of breath. Cardiovascular: Negative for chest pain. Gastrointestinal: Negative for constipation and diarrhea. Endocrine: Negative for polydipsia, polyphagia and polyuria. Genitourinary: Positive for frequency and hematuria. Negative for dysuria, flank pain and pelvic pain. Musculoskeletal: Negative for back pain. Skin: Negative for rash. Neurological: Positive for dizziness and weakness. Negative for tremors and numbness. Psychiatric/Behavioral: Negative for sleep disturbance. OBJECTIVE: Vitals: 09/26/24 1508 BP: 108/67 BP Location: Right arm Patient Position: Sitting BP Cuff Size: Adult Pulse: 66 Resp: 14 Temp: 96.4 ??F (35.8 ??C) TempSrc: Temporal SpO2: 99% Weight: 171 lb (77.6 kg) Physical Exam Constitutional: General: She is not in acute distress. Appearance: Normal appearance. She is not ill-appearing. HENT: Head: Normocephalic and atraumatic. Eyes: General: No scleral icterus. Extraocular Movements: Extraocular movements intact. Pupils: Pupils are equal, round, and reactive to light. Cardiovascular: Rate and Rhythm: Normal rate and regular rhythm. Pulmonary: Effort: Pulmonary effort is normal. No accessory muscle usage or respiratory distress. Breath sounds: Normal breath sounds. Musculoskeletal: Right lower leg: No edema. Left lower leg: No edema. Neurological: Mental Status: She is alert and oriented to person, place, and time. Mental status is at baseline. Comments: Seated in wheelchair. Speech is nondysarthric. Psychiatric: Mood and Affect: Mood normal. Behavior: Behavior normal. ASSESSMENT/PLAN Hanh was seen today for annual exam. Diagnoses and all orders for this visit: Screening for malignant neoplasm of colon (Primary) Comments: Would like to see [facility]. reports had c-scope in past but before 2002. Left-sided weakness S/p old CVA. Would continue to benefit from evaluation for mobility scooter and other devices. Dysuria Stressed utmost importance of drinking more water. Will ask team to give her contact information for urology (patient has history of kidney stones). Would also like to stop her tamsulosin if not needed and I suspect was continued when she was supposed to see urology when last referred. - Culture, Urine, Routine; Future - Urinalysis Complete; Future - POCT Urinalysis Hematuria, unspecified type After patient left UA positive for hematuria. No Nit. Trace leuks. will treat for UTI and await culture. - nitrofurantoin, macrocrystal-monohydrate, (Macrobid) 100 MG capsule; Take 1 capsule (100 mg) by mouth 2 times daily for 5 days. Other orders - Pneumococcal conjugate vaccine 20-valent IM - Pfizer COVID-19 Vaccine 12+ Follow Up: 3 mo dizziness Current Outpatient Medications on File Prior to Visit Medication Sig Dispense Refill Acetaminophen Extra Strength 500 MG tablet TAKE 1 TABLET BY MOUTH 3 TIMES A DAY,X30 DAYS acitretin (Soriatane) 25 MG capsule Take 1 capsule by mouth in the morning. albuterol 108 (90 Base) MCG/ACT inhaler Inhale 2 puffs every 4 (four) hours if needed for wheezing.18 g 1 apixaban (Eliquis) 5 MG tablet TAKE 1 TABLET (5 MG) BY MOUTH IN THE MORNING AND AT BEDTIME. 60 tablet 0 Banophen 50 MG capsule Take 1 capsule by mouth at bedtime. betamethasone valerate (Valisone) 0.1 % ointment Apply topically if needed in the morning and at bedtime (psoriasis). 45 g 2 cholecalciferol 10 MCG (400 UNIT) tablet TAKE 1 TABLET ONCE DAILY 90 tablet 1 Emollient (Eucerin Original Healing) lotion Use twice daily to feet exemestane (Aromasin) 25 MG chemo tablet take 1 tablet (25MG) by oral route every morning gabapentin (Neurontin) 300 MG capsule TAKE 2 CAPSULES BY MOUTH THREE TIMES EVERY DAY 180 capsule 0 ketoconazole (NIZOral) 2 % shampoo APPLY BY TOPICAL ROUTE EVERY 3 DAYS TO SCALP(S), LATHER, LEAVE IN PLACE FOR 5 MINUTES, AND THEN RINSE OFF WITH WATER lamoTRIgine (LaMICtal) 150 MG tablet Take 2 tablets by mouth 1 (one) time each day. [] lidocaine (Xylocaine) 5 % ointment Apply topically if needed (pain). 50 g 2 metoprolol succinate XL (Toprol-XL) 50 MG 24 hr tablet TAKE 1 TABLET (50 MG) BY MOUTH ONCE PER DAY.DO NOT CRUSH OR CHEW. 30 tablet 0 Multiple Vitamins-Minerals (CertaVite Senior/Antioxidant) tablet TAKE 1 TABLET BY MOUTH EVERY DAY 30 tablet 5 naltrexone (Depade) 50 MG tablet TAKE 1 TABLET BY MOUTH ONCE A DAY omeprazole (PriLOSEC) [address] capsule TAKE 1 CAPSULE (20 MG) BY MOUTH BEFORE BREAKFAST AND BEFORE EVENING MEAL. 60 capsule 4 ondansetron (Zofran) 4 MG tablet perphenazine 4 MG tablet TAKE 1 TABLET BY MOUTH DAILY AND 2 TABLET BY MOUTH DAILY AT BEDTIME QUEtiapine (SEROquel) 300 MG tablet Take 1 tablet by mouth in the morning. senna-docusate (Stool Softener/Laxative) 8.6-50 MG tablet TAKE 2 TABLETS BY MOUTH EVERY DAY FOR CONSTIPATION 60 tablet 3 tamsulosin (Flomax) 0.4 MG 24 hr capsule TAKE 1 CAPSULE BY MOUTH EVERY DAY 30 capsule 5 traZODone (Desyrel) 100 MG tablet Take 2 tablets by mouth in the evening. [DISCONTINUED] Multiple Vitamins-Minerals (PX Complete Senior Multivits) tablet TAKE 1 TABLET BY MOUTH EVERY DAY 30 tablet 5 [DISCONTINUED] tamsulosin (Flomax) 0.4 MG 24 hr capsule TAKE 1 CAPSULE BY MOUTH EVERY DAY 30 capsule 5 No current facility-administered medications on file prior to visit. documented in this encounter Plan of Treatment Upcoming Encounters Date Type Department Care Team (Late st Contact Info) Description 01/09/2025 3:15 PM EDT Office Visit [facility] MEDICINE [address] [place] [address] Asuncion Contreras ANP [address] [place] [address] Scheduled Orders Name Type Priority Associated Diagnoses Orde r Schedule Culture, Urine, Routine Microbiology Routine Dysuria Expected: 09/26/2024 (Approximate), Expires: 09/26/2025 Urinalysis Complete Lab Routine Dysuria Expected: 09/26/2024, Expires: 09/26/2025 Scheduled Referrals Name Type Priority Associated Diagnoses Order Schedule Referral to Gastroenterology Outpatient Referral Routine Screening for malignant neoplasm of colon Expected: 09/26/2024 (Approximate), Expires: 09/26/2025 documented as of this encounter Procedures Procedure Name Priority Date/Time Associated Diagnosis Comments POCT URINALYSIS DIPSTICK Routine 09/26/2024 3:59 PM EDT Dysuria documented in this encounter Results * (ABNORMAL) POCT Urinalysis (09/26/2024 3:59 [...] Media Lot # [id number] Lot# Expiration Date [id number] Urine 09/26/2024 3:59 PM EDT us Asuncion SIN POINT OF CARE TEST ENTER/EDIT OR DERABLES Final Result documented in this encounter Visit Diagnoses Diagnosis Screening for malignant neoplasm of colon- Primary Left-sided weakness Dysuria Hematuria, unspecified type documented in this encounter Additional Health Concerns Assessment Noted Time PHQ-9 Depression Total Score: 9 09/27/19 25 4:02 PM EDT documented as of this encounter Care Teams Qa Consultant Relationship Specialty Start Date End Date Asuncion Contreras ANP [address] [place] [address] PCP - General Family Medicine 12/12/19 [employer] 02/01/24 documented as of this encounter
--- OUTSIDE RECORDS SUMMARY | 2024-09-27 19:12 | XMS_ITS | Encounter Summary ---
Author Organization [employer] Address [address] [facility] 7t [place] [address] Care Team Providers Care Telephone Switchboard Operator Name Role Phone Asuncion Contreras Primary Care Provider [phone] Reason for Visit * Reason Onset Date Comments Medication Question 10/30/2022 Encounter Details Date Type Department Care Team ([facility] st Contact Info) Description 10/30/2022 Telephone [facility] MEDICINE [address] [place], [place] [phone] Asuncion Contreras ANP [address] [place], [place] [phone] Medication Question Social History Tobacco Use Types Packs/Day Years [...] encounter Miscellaneous Notes * Telephone Encounter - Dannielle Mcdonough RN - 10/31/2022 2:11 PM EDT Tc to [facility], was wondering if she can have letter stating pt is able to have medication faxed to [phone]. * Telephone Encounter - Dannielle Mcdonough RN - 10/31/2022 11:22 AM EDT TC to [facility] at [facility], she stated pt is allergic to tylenol but has orders signed for tylenol forpain. They called [facility] who states pt has tylenol frequently. They wanted to get OK from PCP that pt can have tylenol. * Telephone Encounter - Darius Finch - 10/30/2022 1:50 PM EDT Tc from [facility] with adult day program requesting a call back regarding pt medication. Please contact pt quintin at [phone] documented in this encounter Plan of Treatment Upcoming Encounters Date Type Department Care Team (Late st Contact Info) Description 01/09/2025 3:15 PM EDT Office Visit [facility] MEDICINE [address] [place] [address] Asuncion Contreras ANP [address] [place] [address] documented as of this encounter Visit Diagnoses Not on filedocumented in this encounter Care Teams Telephone Switchboard Operator Relationship Specialty Start Date End Date Asuncion Contreras ANP [address] [place] [address] PCP - General Family Medicine 12/12/19 [employer] 02/01/24 documented as of this encounter
--- OUTSIDE RECORDS SUMMARY | 2024-09-27 19:12 | XMS_ITS | Encounter Summary ---
Author Organization [employer] Address [address] [facility] [address] [place] [address] Care Team Providers Care Brake Machine Operator Name Role Phone Asuncion Contreras Primary Care Provider [phone] Reason for Visit * Reason Comments Med Refill Encounter Details Date Type Department Care Team ([facility] st Contact Info) Description 09/27/2024 Refill [facility] MEDICINE [address] [place], [place] [phone] Asuncion Contreras ANP [address] [place], [place] [phone] Cervical stenosis of spine Social History Tobacco Use Types Packs/Day Years [...] Description 01/09/2025 3:15 PM EDT Office Visit [facility] MEDICINE [address] [place] [address] Asuncion Contreras ANP [address] [place] [address] documented as of this encounter Visit Diagnoses Diagnosis Cervical stenosis of spine Spinal stenosis in cervical region documented in this encounter Additional Health Concerns Assessment Noted Time PHQ-9 Depression Total Score: 9 09/27/19 25 4:02 PM EDT documented as of this encounter Care Teams Brake Machine Operator Relationship Specialty Start Date End Date Asuncion Contreras ANP [address] [place] [address] PCP - General Family Medicine 12/12/19 [employer] 02/01/24 documented as of this encounter
--- OUTSIDE RECORDS SUMMARY | 2024-09-27 19:12 | XMS_ITS | Encounter Summary ---
Author Organization [employer] Address [address] [place] [address] 7[address] [place] [address] Care Team Providers Care Credit Card Interviewer Name Role Phone Asuncion Contreras Primary Care Provider Reason for Visit * Reason Comments Med Refill Encounter Details Date Type Department Care Team (Late Contact Info) Description 08/24/2023 Refill [facility] [address] [place] [phone] Asuncion Contreras ANP [address] [place] [phone] History of pulmonary embolism Social History Tobacco Use Types Packs/Day Years [...] Description 01/09/2025 3:15 PM EDT Office Visit [facility] [address] [place] [phone] Asuncion Contreras ANP [address] [place] [phone] documented as of this encounter Visit Diagnoses Diagnosis History of pulmonary embolism Personal history of venous thrombosis and embolism documented in this encounter Care Teams Credit Card Interviewer Relationship Specialty Start Date End Date Asuncion Contreras ANP [address] [place] [phone] PCP - General Family Medicine 12/12/19 [employer] 02/01/24 documented as of this encounter
--- OUTSIDE RECORDS SUMMARY | 2024-09-27 19:12 | XMS_ITS | Encounter Summary ---
Author Organization [employer] Address [address] [place] [address] 7[address] [place] [address] Care Team Providers Care Shell Trim Tool Setter Name Role Phone Asuncion Contreras Primary Care Provider [phone] Encounter Details Date Type Department Care Team (Late st Contact Info) Description 08/29/2022 Telephone [facility] [address] [place] [phone] Asuncion Contreras ANP [address] [place] [phone] Social History Tobacco Use Types Packs/Day Years [...] Description 01/09/2025 3:15 PM EDT Office Visit [facility] [address] [place] [phone] Asuncion Contreras ANP [address] [place] [phone] documented as of this encounter Visit Diagnoses Not on filedocumented in this encounter Care Teams Shell Trim Tool Setter Relationship Specialty Start Date End Date Asuncion Contreras ANP [address] [place] [phone] PCP - General Family Medicine 12/12/19 [employer] 02/01/24 documented as of this encounter
--- OUTSIDE RECORDS SUMMARY | 2024-09-27 19:12 | XMS_ITS | Encounter Summary ---
Author Organization [employer] Address [address] [place] [address] 7[address] [place] [address] Care Team Providers Care Supervisor Tan Room Name Role Phone Asuncion Contreras Primary Care Provider [phone] Encounter Details Date Type Department Care Team (Late st Contact Info) Description 07/30/2022 Abstract [facility] [address] [place] [phone] Asuncion Contreras ANP [address] [place] [phone] Social History Tobacco Use Types Packs/Day Years [...] Description 01/09/2025 3:15 PM EDT Office Visit [facility] [address] [place] [phone] Asuncion Contreras ANP [address] [place] [address] documented as of this encounter Visit Diagnoses Not on filedocumented in this encounter Care Teams Supervisor Tan Room Relationship Specialty Start Date End Date Asuncion Contreras ANP [address] [place] [phone] PCP - General Family Medicine 12/12/19 [employer] 02/01/24 documented as of this encounter
--- OUTSIDE RECORDS SUMMARY | 2024-09-27 19:12 | XMS_ITS | Encounter Summary ---
Author Organization [facility] Address [address] [place] [address] Care Team Providers Care Business Applications Manager Name Role Phone Asuncion Contreras NP Primary Care Provider [phone] Reason for Visit * Reason Comments Follow-up Encounter Details Date Type Department Care Team (Late st Contact Info) Description 09/27/2024 2:30 PM EDT Office Visit [facility] Hematology Oncology [address] [place] [phone] Keri To, DO [address] [place] [address] Malignant neoplasm of breast metastatic to brain, unspecified laterality (Primary Dx) Social History Tobacco Use Types Packs/Day Years Used Date Smoking Tobacco: Every Day Smokeless Tobacco: Never Alcohol Use Standard Drinks/Week Comments No 0 (1 standard drink = 0.6 oz pur e alcohol) Comments Unknown Sex and Gender Information Value Date Recorded Sex Assigned at Female 06/13/2024 9:28 AM EST Legal Sex Female 7:41 PM EST Gender Identity Female 06/13/2024 9:28 AM EST Sexual Orientation Straight 06/23/2024 3: 08 PM EST documented as of this encounter Last Filed Vital Signs Vital Sign Reading Time Taken Comments Blood Pressure 98/76 09/27/2024 2:51 PM EDT Pulse 70 09/27/2024 2:51 PM EDT Temperature 37.1 ??C (98.8 ??F) 09/27/2024 2:51 PM ED T Respiratory Rate - - Oxygen Saturation 99% 09/27/2024 2:51 PM EDT Inhaled Oxygen Concentration - - Weight 77.6 kg (171 lb) 09/27/2024 2:51 PM EDT Height 162.6 cm (5' 4 ) 09/27/2024 2:51 PM EDT Body Mass Index 29.35 09/27/2024 2:51 PM EDT documented in this encounter Plan of Treatment Upcoming Encounters Date Type Department Care Team (Late st Contact Info) Description 11/28/2024 2:30 PM EDT Office Visit [facility] Hematology Oncology [address] [place] [address] Keri To DO [address] [place] [address] documented as of this encounter Visit Diagnoses Diagnosis Malignant neoplasm of breast metastatic to brain, unspecified laterality- Primary documented in this encounter Care Teams Business Applications Manager Relationship Specialty Start Date End Date Asuncion Contreras NP [address] [phone] PCP - General Nurse Practitioner 03/24/22 documented as of this encounter
--- OUTSIDE RECORDS SUMMARY | 2024-09-27 19:12 | XMS_ITS | Clinical Summary ---
Author Organization [facility] Address [address] [place] [address] Care Team Providers Care Decal Cutter Name Role Phone Asuncion Contreras [place] Primary Care Provider [phone] Allergies Active Allergy Reactions Criticality Noted Date Comments Aspirin Low 04/07/2014 Other reaction(s): Aspirin Oxycodone 04/07/2014 Other reaction(s): ITCH/NAUSEA Penicillin G 04/07/2014 Other reaction(s): UNRESPONSIVE REACTION Bupropion Rash Low 11/13/2017 Medications Medication Sig Dispensed Refills Start Date End Date Status betamethasone dipropionate (DIPROSONE) 0.05 % cream Apply topically 2 (two) times a day. 0 Active docusate sodium (COLACE) 100 MG capsule Take 200 mg by mouth daily. 0 Active apixaban (ELIQUIS) 2.5 MG TABS tablet Take 5 mg by mouth every 12 (twelve) hours. 0 Active gabapentin (NEURONTIN) 600 MG tablet Take 600 mg by mouth 3 (three) times a day. 0 Active metoprolol succinate (TOPROL-XL) 24 hr tablet 100 mg Take by mouth daily. 0 Active omeprazole (PRILOSEC) 20 MG capsule Take 20 mg by mouth 2 (two) times a day. 0 Active albuterol (PROVENTIL HFA;VENTOLIN HFA) 108 (90 Base) MCG/ACT inhaler Inhale 2 puffs into the lungs every 6 (six) hours as needed for wheezing. 0 Active senna-docusate (PERICOLACE) 8.6-50 MG Take 2 tablets by mouth daily. 0 Active urea (CARMOL) 20 % cream Apply 1 application topically 2 (two) times a day. 0 Active ValACYclovir HCl (VALTREX PO) Take 1 mg by mouth 3 (three) times a day. 0 Active ondansetron (ZOFRAN) 4 MG tablet Take 1 tablet (4 mg total) by mouth 3 (three) times a day as needed. 20 tablet 0 05/27/2019 Active acetaminophen (TYLENOL) 500 MG tablet Take 1,000 mg by mouth every 6 (six) hours as needed. 0 Active cyclobenzaprine (FLEXERIL) 10 MG tablet Take 10 mg by mouth 3 (three) times a day as needed for muscle spasms. 0 Active diclofenac (VOLTAREN) 75 MG EC tablet Take 75 mg by mouth 2 (two) times a day. 0 Active Apremilast (OTEZLA) 30 MG TABS Take 30 mg by mouth every 12 (twelve) hours. 0 Active lamoTRIgine (LaMICtal) 100 MG tablet Take 300 mg by mouth daily. 0 Active naltrexone (DEPADE) 50 MG tablet Take 50 mg by mouth daily. 0 Active perphenazine (TRILAFON) 2 MG tablet Take 2 mg by mouth 2 (two) times a day. 0 Active perphenazine (TRILAFON) 8 MG tablet Take 8 mg by mouth 2 (two) times a day. 0 Active QUEtiapine (SEROquel) 50 MG tablet Take 50 mg by mouth every night at bedtime. 0 Active QUEtiapine (SEROquel) 200 MG tablet Take 200 mg by mouth every night at bedtime. 0 Active vitamin D3 (VITAMIN D3) 10 MCG (400 UNIT) tablet TAKE 2 TABLETS BY MOUTH EVERY DAY 60 tablet 0 04/04/2021 Active exemestane (AROMASIN) 25 MG tablet Take 1 tablet (25 mg total) by mouth daily 90 tablet 0 03/08/2024 Active Active Problems Problem Noted Date Diagnosed Date Bursitis of left elbow 03/23/2022 Presence of IVC filter 03/23/2022 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 11/15 Social History Tobacco Use Types Packs/Day Years Used Date Smoking Tobacco: Every Day Cigarettes 30 Smokeless Tobacco: Never Alcohol Use Standard Drinks/Week Comments No 0 (1 standard drink = 0.6 oz pur e alcohol) Sex and Gender Information Value Date Recorded Sex Assigned at Not on file Gender Identity Not on file Sexual Orientation Not on file Job Start Date Occupation Industry Not on file Not on file Not on file Last Filed Vital Signs Vital Sign Reading Time Taken Comments Blood Pressure 95/60 03/18/2024 3:00 PM EDT Pulse 70 03/18/2024 3:00 PM EDT Temperature 36.4 ??C (97.6 ??F) 03/18/2024 3:00 PM ED T Respiratory Rate - - Oxygen Saturation 97% 03/18/2024 3:00 PM EDT Inhaled Oxygen Concentration - - Weight 92.1 kg (203 lb) 10/09/2022 1:46 PM EDT Height 162.6 cm (5' 4 ) 10/30/2022 1:56 PM EDT Body Mass Index 34.84 10/09/2022 1:46 PM EDT Plan of Treatment Health Maintenance Due Date Last Done Comments Hepatitis B Vaccines (1 of 3 - 3-dose series) 1968 Hepatitis C Screening 1968 Pneumococcal Vaccine (1 of 2 - PCV) 1974 Depression Screening 1980 BMI Counseling 1986 Preventative Health Evaluation 1986 Tobacco Cessation Counseling 1986 Shingrix-Zoster Vaccine (1 of 2) 1987 Cervical Cancer Screening (Pap Smear) 1989 Colon Cancer Screening (Colonoscopy) 2013 Breast Cancer Screening (Mammogram) 2018 COVID-19 Vaccine (2 - Ascencion risk series) 08/06/2021 07/09/2021, 11/08/2020 Influenza Vaccine (#1) 2024 , 07/06/2020, 04/14/2016, Additional history exists DTap / Tdap / Td (2 - Td or Tdap) 07/06/2030 07/06/2020 RSV Ped < 20 months Aged Out No longe r eligible based on patient's age to complete this topic Care Teams Decal Cutter Relationship Specialty Start Date End Date Asuncion Contreras NP [address] [place] [phone] PCP - General Nurse Practitioner 03/24/22
--- OUTSIDE RECORDS SUMMARY | 2024-09-27 19:12 | XMS_ITS | Encounter Summary ---
Author Organization [employer] Address [address] [facility] [address] [place] [address] Care Team Providers Care Mill Supervisor Name Role Phone Asuncion Contreras Primary Care Provider [phone] Encounter Details Date Type Department Care Team ([facility] st Contact Info) Description 06/29/2024 Orders Only [facility] [address] [place] [address] ProviderKiran MD Social History Tobacco Use Types Packs/Day Years [...] Description 01/09/2025 3:15 PM EDT Office Visit [facility] [address] [place] [address] Asuncion Contreras ANP [address] [place] [address] documented as of this encounter Procedures Procedure Name Priority Date/Time Associated Diagnosis Comments CT CHEST ABDOMEN PLEVIS W CONTRAST Routine 06/23/2024 9:52 AM EST documented in this encounter Results * CT Chest abd pel w con (06/23/2024 9:52 AM EST) Anatomical Region Laterality Modality Body, Chest Computed Tomogra phy us Historical Provider MD FAJARDO CT PROCEDURES Final R esult documented in this encounter Visit Diagnoses Not on filedocumented in this encounter Additional Health Concerns Assessment Noted Time PHQ-9 Depression Total Score: 0 09/25/19 24 3:01 PM EDT documented as of this encounter Care Teams Mill Supervisor Relationship Specialty Start Date End Date Asuncion Contreras ANP [address] [place] [phone] PCP - General Family Medicine 12/12/19 [employer] 02/01/24 documented as of this encounter
--- OUTSIDE RECORDS SUMMARY | 2024-09-27 19:12 | XMS_ITS | Clinical Summary ---
Author Organization [address] [facility] Address [address] [place] [address] Phone Care Team Providers Care Software Qa System Specialist Name Role Phone Asuncion Contreras NP Primary Care Provider [phone] Allergies No known active allergies Medications geriatric atpdqqji-ierq-w ins tablet Take 1 Tablet by mouth daily. 4 Active acitretin (SORIATANE) 25 mg capsule Take 1 Capsule by mouth. 2 Active albuterol HFA (PROAIR HFA ; PROVENTIL HFA ; VENTOLIN HFA) 90 mcg/actuation inhaler Inhale 2 Puffs into the lungs. 3 Active apixaban (ELIQUIS) 5 mg tablet TAKE 1 TABLET (5 MG) BY MOUTH IN THE MORNING AND AT BEDTIME. 4 Active apremilast 30 mg tablet Take 30 mg by mouth. Active cholecalciferol (VITAMIN D-3) 10 mcg (400 unit) tablet TAKE 1 TABLET ONCE DAILY 1 Active gabapentin (NEURONTIN) 300 mg capsule TAKE 2 CAPSULES BY MOUTH THREE TIMES EVERY DAY 3 Active lamoTRIgine (LaMICtal) 150 mg tablet Take 2 Tablets by mouth. 3 Active metoprolol succinate (TOPROL-XL) 50 mg 24 hr tablet Take 1 Tablet by mouth. 4 Active naltrexone (DEPADE) 50 mg tablet TAKE 1 TABLET BY MOUTH ONCE A DAY 3 Active omeprazole (PriLOSEC) [address] capsule Take 1 Capsule by mouth. 2 Active perphenazine 4 mg tablet TAKE 1 TABLET BY MOUTH DAILY AND 2 TABLET BY MOUTH DAILY AT BEDTIME 3 Active QUEtiapine (SEROquel) 300 mg tablet Take 1 Tablet by mouth. 3 Active senna-docusate (PERICOLACE) 8.6-50 mg per tablet TAKE 2 TABLETS BY MOUTH EVERY DAY FOR CONSTIPATION 4 Active traZODone (DESYREL) 100 mg tablet Take 3 Tablets by mouth. 2 Active tamsulosin (FLOMAX) 0.4 mg 24 hr capsule Take 1 capsule (0.4 mg total) by mouth 1 (one) time each day. 4 Active HYDROcodone-hilario taminophen (NORCO) 5-325 mg per tablet 4 Active exemestane (AROMASIN) 25 mg tablet Take 1 tablet (25 mg total) by mouth 1 (one) time each day 90 tablet 5 Active Active Problems Problem Noted Date Diagnosed Date HTN (hypertension) 04/26/2024 Cervical stenosis of spine 10/27/2023 Overview (04/18/2024): Last Assessment & Plan: Patient comes in for cervical stenosis. She has history of a stroke 2010 that left her with left LE >UE hemiparesis, I looked through years of notes in [facility] records, PT eval October 2022 and other [...] history of infection in June was at [facility], on antibiotics. Patient went for her first outpatient PT visit yesterday at [facility]. Dr. Fernandez's note mentions that she falls twice a month, no injuries with the fall. Patient states her COPD is in good control, no diabetes, no recent drug or alcohol use, no history of KS, liver or kidney disease. Ms. Glover had C-spine MRI 07/21/2023 at [facility] with findings of C3-4 right paracentral disc [...] she will evaluate after CT is completed. Assessment & Plan (06/10/2024 1:43 PM EST): Ms. Glover has made some progress and is not reporting neck pain. She has tingling in the right hand but states that her clumsiness and poor dexterity was present from preop. There is slight left-sided weakness from a previous stroke which she feels is stable. She is seen today in a wheelchair but does walk at home. I will send her for x-rays to verify that all hardware is in good position. Assessment & Plan (04/26/2024 1:52 PM EST): Patient is POD #12 s/p C5-6, C6-7 ACDF for cervical stenosis, preop was having neck pain, poor balance, weakness, also with history of stroke 2010 that left her with left LE >UE hemiparesis. She is a bit of a poor historian, but it does sound like she has seen some improvement in the type/severity of neck pain, she rates her neck pain 7/10, has some of the typical posterior neck pain after ACDF. She has been able to swallow and eat, no fevers or wound drainage. She states she will walk sometimes with a walker, would like rehab/physical therapy to help with balance. 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 Ms. Glover has follow-up appointment in 6 weeks with C-spine x-rays with Dr. Macias. All postop instructions reviewed, questions answered, reminded patient not to take NSAIDs to allow for bony fusion. Physical therapy prescription given to patient. I asked her to call with any concerns or questions. Chronic elbow pain, left 02/20/2023 Overview (04/18/2024): Last Assessment & Plan: Acute on chronic L elbow pain w [...] in next 2-4 wk to monitor wound. 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 02/20/2023 Overview (04/18/2024): Last Assessment & Plan: Pt w Hx of stroke w L [...] requested nurse staff for referral. -Referred to [facility] PT rehab for motorized wheelchair evaluation, requested by . -Request nurse staff for shower chair requested by . -Due to new reported diplopia for the past 2 wk, referred today for brain MRI and to senior instructor. -I called today her neurologist Dr. Mao - who informed that pt has not been following for a long time. -MA today will help w scheduling apt for neurologist. -Advised to f up w PCP in the next 3-4 wk. 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 11/15 Lower urinary tract infectious disease 3 Bipolar II disorder 12/11/2011 Cocaine dependence 12/11/2011 Encounters Date Type Department Care Team Description 09/27/2024 2:30 PM EDT Office Visit [facility] Hematology Oncology [address] [place] [address] Keri To, Malignant neoplasm of breast metastatic to brain, unspecified laterality (Primary Dx) from Last 3 Months Immunizations Name Administration Dates Next Due Influenza Quadrivalent, 0.5m l, preservative free (Fluarix; FluLaval; Fluzone) ages 6mo and older (Afluria) 3yo and older 04/29/2022,07/06/2020 Influenza Quadrivalent, with preservative (Fluzone; Afluria) 6mo and older 04/14/2016 Influenza Split 03/15/2013 Influenza trivalent, 0.5mL, preservative free (Fluarix; FluLaval; Fluzone) ages 6mo and older (Afluria) 3 years and older 04/29/2022,07/06/2020,04/14/2016,2012 Influenza trivalent, with preservative (Fluzone; Afluria) 6mo and older 03/21/2014 [facility] SARS-CoV-2 COVID -19, vector-nr, [id number], preservative free 11/08/2020 Td Tetanus diptheria (Tdvax) 7yo and older 04/29/2022 Tdap Tetanus diptheria acell ular pertussis (Boostrix; Adacel) 7yo and older 04/29/2022,07/06/2020 Surgical History Surgery Date Site/Laterality Comments NECK SURGERY 04/14/2024 C5-6, C6-7 ACDF, Dr/Colleen OTHER SURGICAL HISTORY 06/22/2008 - 06/21/2009 Right frontotemporal craniotomy resection of metastatic lesion, Dr. Leger, [facility] OTHER SURGICAL HISTORY left breast lumpectomy/reconstruction with removal of lymph nodes OTHER SURGICAL HISTORY Left arm ORIF surgery OTHER SURGICAL HISTORY IVC filter placement, history of PE and DVT Medical History Medical History Date Comments Breast cancer DX:Breast cancer (HCC) Brain cancer (CMS/HCC) DX:Brain cancer (HCC) Stroke (CMS/HCC) DX:Stroke (HCC) Social History Tobacco Use Types Packs/Day Years Used Date Smoking Tobacco: Every Day Smokeless Tobacco: Never Tobacco Cessation:Ready to Q uit: Not Asked; Counseling Given: Not Answered Alcohol Use Standard Drinks/Week Comments No 0 (1 standard drink = 0.6 oz pur e alcohol) Comments Unknown Sex and Gender Information Value Date Recorded Sex Assigned at Female 06/13/2024 9:28 AM EST Legal Sex Female 7:41 PM EST Gender Identity Female 06/13/2024 9:28 AM EST Sexual Orientation Straight 06/23/2024 3: 08 PM EST Obstetrics History Last Filed Vital Signs Vital Sign Reading [...] Mass Index 29.35 09/27/2024 2:51 PM EDT Plan of Treatment Upcoming Encounters Date Type Department Care Team (Late st Contact Info) Description 11/28/2024 2:30 PM EDT Office Visit [facility] Hematology Oncology [address] [place] [phone] Keri To Sonam, DO [address] [place] [address] Health Maintenance Due Date Last Done Comments Hepatitis B Vaccines (1 of 3 - 19+ 3-dose series) 1987 Zoster Vaccines (1 of 2) 1987 Cervical Cancer Screening: Pap Smear 1989 Colorectal Cancer Screening: Colonoscopy 05/30/2022 Medicare Annual Wellness Visit 05/30/2022 Social Influencers of Health Screening 05/30/2022 Breast Cancer Screening 10/30/2022 10/30/2020 Depression Screening 09/24/2024 09/25/2023 Influenza Vaccine (Season Ended) 2025 04/29/2022, 04/29/2022, 07/06/2020, Additional history exists Hypertension/CHF/CAD Annual BMP Blood Test 06/28/2025 06/28/2024, 01/21/2021 Cholesterol Screening (Lipid Panel) 04/29/2027 04/29/2022, 03/18/2021 DTaP,Tdap,and Td Vaccines (4 - Td or Tdap) 04/29/2032 04/29/2022, 04/29/2022, 07/06/2020 HIV Screening Completed 01/21/2021, 01/21/2021 Hepatitis C Screening Completed 01/21/2021 COVID-19 Vaccine Completed 09/26/2024, , 11/08/2020 Pneumococcal Vaccine: 50+ Years Completed 09/26/2024 Pneumococcal Vaccine: Pediatrics (0 to 5 Years) and At-Risk Patients (6 to 64 Years) Completed 09/26/2024 HIB Vaccines Aged Out No longer eligi [...] on patient's age to complete this topic MMR Vaccines Aged Out No longer eligi ble based on patient's age to complete this topic Meningococcal ACWY Vaccine Aged Out N o longer eligible based on patient's age to complete this topic Meningococcal B Vaccine Aged Out No l onger eligible based on patient's age to complete this topic RSV Immunization Patients Under 20 months Aged Out No longer eligible based on patient's age to complete this topic Varicella Vaccines Aged Out No longer eligible based on patient's age to complete this topic Procedures Procedure Name Priority Date/Time Associated Diagnosis Comments COMPREHENSIVE METABOLIC PANEL Routine 06/28/2024 2:59 PM EST Malignant neoplasm of breast metastatic to brain, unspecified laterality (CMS/HCC) LIPID PANEL Routine 03/18/2021 HEPATITIS C SCREENING Routine 01/21/2021 HIV SCREENING Routine 01/21/2021 PAULINE SCREENING DIGITAL Routine 10/30/2020 7:50 AM EDT Encounter for screening mammogram for malignant neoplasm of breast from Last 3 Months or Most Recently Relevant to Health Maintenance Results * (ABNORMAL) Comprehensive metabolic panel (06/28/2024 2:59 PM EST) Sodium 137 133 - 145 mmol/L LAB CHEMISTRY METHOD 06/28/2024 5:01 PM [facility] Potassium 4.1 3.5 - 5.5 mmol/L LAB CHEMISTRY METHOD 06/28/2024 5:01 PM [facility] Chloride 101 96 - 110 mmol/L LAB CHEMISTRY METHOD 06/28/2024 5:01 PM [facility] CO2 29 21 - 32 mmol/L LAB CHEMISTRY METHOD 06/28/2024 5:01 PM [facility] Anion Gap 7 3 - 11 LAB CHEMISTRY METHOD 06/28/2024 5:01 PM [facility] Glucose 101(H) 70 - 100 mg/dL LAB CHEMISTRY METHOD 06/28/2024 5:01 PM [facility] BUN 8 5 - 25 mg/dL LAB CHEMISTRY METHOD 06/28/2024 5:01 PM [facility] Creatinine 0.82 0.50 - 1.10 mg/dL LAB CHEMISTRY METHOD 06/28/2024 5:01 PM [facility] eGFR 85 >=60 mL/min/1. 73m2 LAB CHEMISTRY METHOD 06/28/2024 5:01 PM [facility] Comment:Calculation based on the??Chronic Kidney Disease Epidemiology Collaboration (CKD-EPI) equation refit??without adjustment for race. BUN/Creatinine Ratio 9.8 LAB CHEMISTRY METHOD 06/28/2024 5:01 PM [facility] Calcium 10.2 8.5 - 10.5 mg/dL LAB CHEMISTRY METHOD 06/28/2024 5:01 PM [facility] AST (SGOT) 9(L) 10 - 42 unit/L LAB CHEMISTRY METHOD 06/28/2024 5:01 PM [facility] ALT (SGPT) 19 10 - 60 unit/L LAB CHEMISTRY METHOD 06/28/2024 5:01 PM [facility] Alkaline Phosphatase 95 42 - 121 unit/L LAB CHEMISTRY METHOD 06/28/2024 5:01 PM [facility] Total Protein 7.2 6.0 - 8.0 g/dL LAB CHEMISTRY METHOD 06/28/2024 5:01 PM [facility] Albumin 3.7 3.2 - 5.0 g/dL LAB CHEMISTRY METHOD 06/28/2024 5:01 PM [facility] Total Bilirubin 0.2 0.0 - 1.4 mg/dL LAB CHEMISTRY METHOD 06/28/2024 5:01 PM [facility] Blood Venous blood specimen / Unknown Venipuncture / Unknown 06/28/2024 2:59 PM EST 06/28/2024 4:33 PM EST us Keri To DO LAB BLOOD ORDERABLES Final Result [facility] [address] [place] [address], * Lipid panel (03/18/2021) LDL/HDL Ratio 0 Comment:No Interpretation Triglycerides 0 mg/dL Comment:No Interpretation Cholesterol 0 mg/dL Comment:No Interpretation HDL 0 mg/dL Comment:No Interpretation LDL Cholesterol 0 mg/dL Comment:No Interpretation Blood Venous blood specimen / Unknown Historical Provider MD LAB BLOOD ORDERABLES Gwen l Result * HIV Screening (01/21/2021) HIV Screening Abstracted Historical Provider HEALTH MAINTENANCE Final Result * Hepatitis C Screening (01/21/2021) Hepatitis C Screening Abstracted Historical Provider HEALTH MAINTENANCE Final Result * PAULINE SCREENING DIGITAL (10/30/2020 7:50 AM EDT) Anatomical Region Laterality Modality Mammography 10/29/2020 3:42 PM EDT Narrative 10/30/2020 7:50 AM EDT [facility] Diagnostic Imaging Department [address] [place] [address] Patient: ??HANH GLOVER ?/Age/Sex: 1970 - Unit#: ??[id number] ? Location/Status: ??SPDIMAM/REG CLI ? Mnemonic/Ordering Site: ??DIGSC/SPMAM Ordering Physician: ??SUSANA ARRIOLA MD Pauline Screening Digital - 10/29/20 - 1605 HISTORY: The patient is a 50-year-old female presenting for routine screening mammography. ??The patient has a history of left breast cancer treated age 31 with lumpectomy and radiation. FINDINGS: ??CC and MLO views of both breasts were obtained using full field digital mammography in the [employer] 2000-D unit. Computer aided detection with the Content Syndicate: Words on Demand Second Look 7.2-H was employed. In addition, breast tomosynthesis in MLO projection was performed. The breasts are again seen to be composed of a combination of fatty and fibroglandular elements (scattered areas of fibroglandular density, category B density), as also demonstrated on prior studies most recently 08/04/2019 and most remotely 02/12/2011. ??The left breast is again seen to be smaller than the right and there is architectural distortion with dystrophic calcification in the upper outer quadrant of the left breast, also demonstrated on multiple prior studies, consequent to previous lumpectomy and radiation. ??There is no suspicious cluster of microcalcifications, mass, or new area of architectural distortion. There is no skin thickening or nipple retraction. IMPRESSION: No mammographic evidence of malignancy. A negative mammogram in the presence of a clinically suspicious palpable abnormality does not preclude the possibility of malignancy or alter the indications for biopsy. BIRADS Code Class 2: ??Benign Finding PQRI CPT II 3342F Code 10726, 71840 PQRI 225 CPT II 7025F Dictating Physician: ??GRISELDA POWER MD Electronically Signed by: ??GRISELDA POWER MD Dic Date/Time: ??10/30/20 0746 Sign date/Time: ??10/30/20 0750 Procedure Note Griselda Power MD - 06/10/2022 [facility] Diagnostic Imaging Department [address] [place] [address] Patient: HANH GLOVER /Age/Sex: 1970 - 50 - F Unit#: [id number] Location/Status: [facility] CLI Mnemonic/Ordering Site: [facility] Ordering Physician: SUSANA ARRIOLA MD Pauline Screening Digital - 10/29/20 - 160 HISTORY: The patient is a 50-year-old female presenting for routinescreening mammography. The patient has a history of left breast cancer treated age31 with lumpectomy and radiation. FINDINGS: CC and MLO views of both breasts were obtained using fullfield digital mammography in the [employer]he 2000-D unit. Computer aideddetection with the Content Syndicate: Words on Demand Second Look 7.2-H was employed. In addition, breasttomosynthesis in MLO projection was performed. The breasts are again seen to be composed of a combination of fatty and fibroglandular elements (scattered areas of fibroglandular density,category B density), as also demonstrated on prior studies most recently 08/04/2019and most remotely 02/12/2011. The left breast is again seen to be smaller than theright and there is architectural distortion with dystrophic calcification in theupper outer quadrant of the left breast, also demonstrated on multiple priorstudies, consequent to previous lumpectomy and radiation. There is no suspiciouscluster of microcalcifications, mass, or new area of architectural distortion.There is no skin thickening or nipple retraction. IMPRESSION: No mammographic evidence of malignancy. A negative mammogram in the presence of a clinically suspicious palpable abnormality does not preclude the possibility of malignancy or alter the indications for biopsy. BIRADS Code Class 2: Benign Finding PQRI CPT II 3342F Code 92327, 10849 PQRI 225 CPT II 7025F Dictating Physician: GRISELDA POWER MD Electronically Signed by: GRISELDA POWER MD Dic Date/Time: 10/30/20 0746 Sign date/Time: 10/30/20 8689 Susana Arriola MD IMG BI PROCEDURES Final Result from Last 3 Months or Most Recently Relevant to Health Maintenance Insurance [facility] MEDICARE Member Subscriber Plan / Payer (Ef fective 2024-Present) Name:Hanh Glover Relation to Subscriber:Self Name:Hanh Glover Payer ID:[id number] Group ID:[id number] Type:Not on file Address: [facility] [address] [id number] MEDICAID - [place] Advance Directives Documents on File Type Date Recorded 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 Expl anation Health Care Decision (hx) 06/07/2009 AD SHUKLA DIRECTIVE Health Care Decision (hx) 06/07/2009 AD SHUKLA DIRECTIVE Health Care Decision (hx) 06/07/2009 AD SHUKLA DIRECTIVE Health Care Decision (hx) 06/07/2009 AD SHUKLA DIRECTIVE Health Care Decision (hx) 06/07/2009 AD SHUKLA DIRECTIVE Health Care Decision (hx) 06/07/2009 AD SHUKLA DIRECTIVE Health Care Decision (hx) 06/07/2009 AD SHUKLA DIRECTIVE Health Care Decision (hx) 06/07/2009 AD SHUKLA DIRECTIVE Health Care Decision (hx) 06/07/2009 AD SHUKLA DIRECTIVE Health Care Decision (hx) 06/07/2009 AD SHUKLA DIRECTIVE Health Care Decision (hx) 06/07/2009 AD SHUKLA DIRECTIVE Health Care Decision (hx) 06/07/2009 AD SHUKLA DIRECTIVE Health Care Decision (hx) 06/07/2009 AD SHUKLA DIRECTIVE Health Care Decision (hx) 06/07/2009 AD SHUKLA DIRECTIVE Health Care Decision (hx) 06/07/2009 AD SHUKLA DIRECTIVE Health Care Decision (hx) 06/07/2009 AD SHUKLA DIRECTIVE Health Care Decision (hx) 06/07/2009 AD SHUKLA DIRECTIVE Health Care Decision (hx) 06/07/2009 AD SHUKLA DIRECTIVE Health Care Decision (hx) 06/07/2009 AD SHUKLA DIRECTIVE Health Care Decision (hx) 06/07/2009 AD SHUKLA DIRECTIVE Health Care Decision (hx) 06/07/2009 AD SHUKLA DIRECTIVE Health Care Decision (hx) 06/07/2009 AD SHUKLA DIRECTIVE Health Care Decision (hx) 06/07/2009 AD SHUKLA DIRECTIVE Health Care Decision (hx) 06/07/2009 AD SHUKLA DIRECTIVE Health Care Decision (hx) 06/07/2009 AD SHUKLA DIRECTIVE Health Care Decision (hx) 06/07/2009 AD SHUKLA DIRECTIVE Health Care Decision (hx) 06/07/2009 AD SHUKLA DIRECTIVE Health Care Decision (hx) 06/07/2009 AD SHUKLA DIRECTIVE Health Care Decision (hx) 06/07/2009 AD SHUKLA DIRECTIVE Health Care Decision (hx) 06/07/2009 AD SHUKLA DIRECTIVE Health Care Decision (hx) 06/07/2009 AD SHUKLA DIRECTIVE Health Care Decision (hx) 06/07/2009 AD SHUKLA DIRECTIVE Health Care Decision (hx) 06/07/2009 AD SHUKLA DIRECTIVE Health Care Decision (hx) 06/07/2009 AD SHUKLA DIRECTIVE Health Care Decision (hx) 06/07/2009 AD SHUKLA DIRECTIVE Health Care Decision (hx) 06/07/2009 AD SHUKLA DIRECTIVE Health Care Decision (hx) 06/07/2009 AD SHUKLA DIRECTIVE Health Care Decision (hx) 06/07/2009 AD SHUKLA DIRECTIVE Health Care Decision (hx) 06/07/2009 AD SHUKLA DIRECTIVE Health Care Decision (hx) 06/07/2009 AD SHUKLA DIRECTIVE Health Care Decision (hx) 06/07/2009 AD SHUKLA DIRECTIVE Health Care Decision (hx) 06/07/2009 AD SHUKLA DIRECTIVE Health Care Decision (hx) 06/07/2009 AD SHUKLA DIRECTIVE Care Teams Software Qa System Specialist Relationship Specialty Start Date End Date Asuncion Contreras NP [address] [place] [phone] PCP - General Nurse Practitioner 03/24/22
--- OUTSIDE RECORDS SUMMARY | 2024-09-27 19:12 | XMS_ITS | Encounter Summary ---
Author Organization [facility] Address [address] [place] [address] Care Team Providers Care Seed Analyst Name Role Phone Asuncion Contreras SANITIZER Primary Care Provider [phone] Encounter Details Date Type Department Care Team Description 01/23/2022 Social Work [facility] Oncology Services [address] [place] [address] Michelle Minor MSW Social History Tobacco Use Types Packs/Day Years [...] file Not on file Not on file COVID-19 Exposure Response Date Recorded In the last 10 days, have yo u been in contact with someone who was confirmed or suspected to have Coronavirus/COVID-19? No / Unsure 01/23/2022 11:59 AM EDT documented as of this encounter Plan of Treatment Not on file documented as of this encounter Visit Diagnoses Not on filedocumented in this encounter Care Teams Seed Analyst Relationship Specialty Start Date End Date Asuncion Contreras NP [address] [place] [phone] PCP - General Nurse Practitioner 03/24/22 documented as of this encounter
--- OUTSIDE RECORDS SUMMARY | 2024-09-27 19:12 | XMS_ITS | Encounter Summary ---
Author Organization [employer] Address [address] [place] [address] Care Team Providers Care Rn Security Name Role Phone Asuncion Contreras Primary Care Provider [phone] Reason for Visit * Reason Onset Date Comments Nurse Triage 05/06/2024 Encounter Details Date Type Department Care Team ([facility] st Contact Info) Description 05/06/2024 Telephone [facility] MEDICINE [address], [place] [phone] Asuncion Contreras ANP [address], [place] [phone] Nurse Triage Social History Tobacco Use Types Packs/Day Years [...] encounter Miscellaneous Notes * Telephone Encounter - Delano Chadwick - 05/06/2024 3:47 PM EST Symptom: Head Injury Outcome: Schedule an urgent appointment (within 1 hour) or talk to a nurse or provider soon Reason: Happened within the past 24 hours Contact pt at [phone] documented in this encounter Plan of Treatment Upcoming Encounters Date Type Department Care Team (Late st Contact Info) Description 01/09/2025 3:15 PM EDT Office Visit [facility] MEDICINE [address] [place] [address] Asuncion Contreras ANP [address] [place] [address] documented as of this encounter Visit Diagnoses Not on filedocumented in this encounter Additional Health Concerns Assessment Noted Time PHQ-9 Depression Total Score: 0 09/25/19 24 3:01 PM EDT documented as of this encounter Care Teams Rn Security Relationship Specialty Start Date End Date Asuncion Contreras ANP [address] [place] [address] PCP - General Family Medicine 12/12/19 [employer] 02/01/24 documented as of this encounter
--- OUTSIDE RECORDS SUMMARY | 2024-09-27 19:12 | XMS_ITS | Encounter Summary ---
Author Organization [employer] Address [address] [place] [address] Care Team Providers Care Design Leader Name Role Phone Asuncion Contreras Primary Care Provider Reason for Visit * Reason Onset Date Comments Medication Question 03/05/2023 Encounter Details Date Type Department Care Team ([facility] st Contact Info) Description 03/05/2023 Telephone [facility] [address] [place], [place] [phone] Asuncion Contreras ANP [address] [place], [place] [phone] Medication Question Social History Tobacco Use Types [...] encounter Miscellaneous Notes * Telephone Encounter - Melinda Maurer RN - 03/10/2023 12:17 PM EDT Received call from [facility] at the house, with pt. Spoke to Emma. States pt fell today, slipped off the bed. 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 Pt haspoor balance as well, and this causes falls. Pt states no severe injury, hit her left leg but denies severe pain, or bruising. Spoke to pt who is awake, alert, and oriented and speaks appropriately. Pt has had a recent MRI to check on status of her stroke, has not heard results as yet. Pt denies current headache, or other associated or severe symptoms and has help 12/01. Emma states pt has stable vital signs and no severe symptoms. Advised will task to team nurses to follow up as needed and for MRI results. [facility]NA will call back if other concerns or worsening. Pt has history of breast cancer with brain mets and is followed by Oncology. * Telephone Encounter - Denise Darryn - 03/05/2023 11:23 AM EDT Tc from [facility] (OT) at [employer] is requesting per patients Son and to have a medication review. documented in this encounter Plan of Treatment Upcoming Encounters Date Type Department Care Team (Late st Contact Info) Description 01/09/2025 3:15 PM EDT Office Visit [facility] [address] [place] [address] Asuncion Contreras ANP [address] [place] [address] documented as of this encounter Visit Diagnoses Not on filedocumented in this encounter Care Teams Design Leader Relationship Specialty Start Date End Date Asuncion Contreras ANP [address] [place] [address] PCP - General Family Medicine 12/12/19 [employer] 02/01/24 documented as of this encounter
--- OUTSIDE RECORDS SUMMARY | 2024-09-27 19:12 | XMS_ITS | Encounter Summary ---
Author Organization [employer] Address [address] [facility] 7t [place] [address] Care Team Providers Care Assembler Faucets Name Role Phone Asuncion Contreras Primary Care Provider [phone] Reason for Visit * Reason Onset Date Comments Med Refill 10/15/2023 Encounter Details Date Type Department Care Team ([facility] st Contact Info) Description 10/15/2023 Telephone [facility] MED[facility]INE [address] [place], [place] [phone] Asuncion Contreras ANP [address] [place], [place] [phone] Med Refill Social History Tobacco Use Types Packs/Day Years [...] encounter Miscellaneous Notes * Telephone Encounter - Yuli Silva LPN - 10/15/2023 10:40 AM EDT Medication pended to PCP. * Telephone Encounter - Karen Barnes - 10/15/2023 10:32 AM EDT TC from pt requesting medication refill. Medications needing refill : gabapentin (Neurontin) 300 MG capsule To be sent to: [facility] [address] documented in this encounter Plan of Treatment Upcoming Encounters Date Type Department Care Team (Late st Contact Info) Description 01/09/2025 3:15 PM EDT Office Visit [facility] [address] [place] [address] Asuncion Contreras ANP [address] [place] [address] documented as of this encounter Visit Diagnoses Not on filedocumented in this encounter Additional Health Concerns Assessment Noted Time PHQ-9 Depression Total Score: 0 09/25/19 24 3:01 PM EDT documented as of this encounter Care Teams Assembler Faucets Relationship Specialty Start Date End Date Asuncion Contreras ANP [address] [place] [address] PCP - General Family Medicine 12/12/19 [employer] 02/01/24 documented as of this encounter
--- OUTSIDE RECORDS SUMMARY | 2024-09-27 19:12 | XMS_ITS | Encounter Summary ---
Author Organization [employer] Address [address] [facility] 7[address] [place] [address] Care Team Providers Care Manager Of Marketing Name Role Phone Asuncion Contreras Primary Care Provider [phone] Reason for Visit * Reason Onset Date Comments Med Refill 06/28/2024 Encounter Details Date Type Department Care Team ([facility] st Contact Info) Description 06/28/2024 Telephone [facility]INE [address] [place], [place] [phone] Asuncion Contreras ANP [address] [place], [place] [phone] Med Refill Social History Tobacco Use Types [...] Telephone Encounter - Yuli Silva LPN - 06/28/2024 1:10 PM EST Medication pended to PCP. * Telephone Encounter - Mateo Eduardo - 06/28/2024 12:40 PM EST TC from pt requesting medication refill. Medications needing refill : gabapentin (Neurontin) 300 MG capsule To be sent to: [facility] - [place], [place] - [address] [facility] documented in this encounter Plan of Treatment Upcoming Encounters Date Type Department Care Team (Late st Contact Info) Description 01/09/2025 3:15 PM EDT Office Visit [facility] [address] [place] [address] Asuncion Contreras ANP [address] [place] [address] documented as of this encounter Visit Diagnoses Not on filedocumented in this encounter Additional Health Concerns Assessment Noted Time PHQ-9 Depression Total Score: 0 09/25/19 24 3:01 PM EDT documented as of this encounter Care Teams Manager Of Marketing Relationship Specialty Start Date End Date Asuncion Contreras ANP [address] [place] [address] PCP - General Family Medicine 12/12/19 [employer] 02/01/24 documented as of this encounter
--- OUTSIDE RECORDS SUMMARY | 2024-09-27 19:12 | XMS_ITS | Encounter Summary ---
Author Organization [employer] Address [address] [place] [address] 7t [place] [address] Care Team Providers Care Silk Examiner Name Role Phone Asuncion Contreras Primary Care Provider Reason for Visit * Reason Comments Med Refill Encounter Details Date Type Department Care Team (Late st Contact Info) Description 09/10/2023 Refill [facility] MED[facility]INE [address] [place] [address] Asuncion Contreras ANP [address] [place] [address] Social History Tobacco Use Types Packs/Day Years [...] Description 01/09/2025 3:15 PM EDT Office Visit [facility] MED[facility]INE [address] [place] [address] Asuncion Contreras ANP [address] [place] [address] documented as of this encounter Visit Diagnoses Not on filedocumented in this encounter Care Teams Silk Examiner Relationship Specialty Start Date End Date Asuncion Contreras ANP [address] [place] [address] [place] [address] PCP - General Family Medicine 12/12/19 [employer] 02/01/24 documented as of this encounter
--- OUTSIDE RECORDS SUMMARY | 2024-09-27 19:12 | XMS_ITS | Encounter Summary ---
Author Organization [employer] Address [address] 7[address] [place] [address] Care Team Providers Care Floor Tech Name Role Phone Asuncion Contreras Primary Care Provider [phone] Encounter Details Date Type Department Care Team ([facility] st Contact Info) Description 09/29/2023 Orders Only [facility] [address] [place], [place] [phone] Asuncion Contreras ANP [address] [place], [place] [phone] Social History Tobacco Use Types Packs/Day Years [...] 3:15 PM EDT Office Visit [facility] MEDICINE [address] [place] [address] Asuncion Contreras ANP [address] [place] [address] documented as of this encounter Visit Diagnoses Not on filedocumented in this encounter Additional Health Concerns Assessment Noted Time PHQ-9 Depression Total Score: 0 09/25/19 24 3:01 PM EDT documented as of this encounter Care Teams Floor Tech Relationship Specialty Start Date End Date Asuncion Contreras ANP [address] [place] [address] PCP - General Family Medicine 12/12/19 [employer] 02/01/24 documented as of this encounter
--- OUTSIDE RECORDS SUMMARY | 2024-09-27 19:12 | XMS_ITS | Encounter Summary ---
Author Organization [employer] Address [address] [facility] 7t [place] [address] Care Team Providers Care Weekend Receptionist Name Role Phone Asuncion Contreras Primary Care Provider [phone] Reason for Visit * Reason Onset Date Comments Med Refill 09/12/2024 Encounter Details Date Type Department Care Team ([facility] st Contact Info) Description 09/12/2024 Telephone [facility] [address] [place], [place] [phone] Asuncion Contreras ANP [address] [place], [place] [phone] Med Refill Social History Tobacco Use Types [...] Recorded Patient Health Questionnaire-2 Score 0 09/25/2023 Internet Access Answer Date Recorded Internet Access [...] Telephone Encounter - Yuli Silva LPN - 09/12/2024 2:26 PM EDT Medication pended to PCP. * Telephone Encounter - Melyssa Pascual - 09/12/2024 2:24 PM EDT TC from pt requesting medication refill. Medications needing refill : apixaban (Eliquis) 5 MG tablet To be sent to: [facility] [address] documented in this encounter Plan of Treatment Upcoming Encounters Date Type Department Care Team (Late st Contact Info) Description 01/09/2025 3:15 PM EDT Office Visit [facility] [address] [place] [address] Asuncion Contreras ANP [address] [place] [address] documented as of this encounter Visit Diagnoses Not on filedocumented in this encounter Additional Health Concerns Assessment Noted Time PHQ-9 Depression Total Score: 0 09/25/19 24 3:01 PM EDT documented as of this encounter Care Teams Weekend Receptionist Relationship Specialty Start Date End Date Asuncion Contreras ANP [address] [place] [address] PCP - General Family Medicine 12/12/19 [employer] 02/01/24 documented as of this encounter
== END 2024-09-27 16:54 | disposition home or self-care (01) ==
LOC: HO.HHCLNP 16:53
PROVIDERS: Visit Provider Nurse Practitioner Primary Care
DX: R30.0 Dysuria (principal)
CPT/HCPCS: 87086

== ENCOUNTER 2025-04-07 16:27 | Outpatient (REF) | payer OTHER, SELFPAY ==
--- OUTSIDE RECORDS SUMMARY | 2025-04-03 13:44 | XMS_ITS | Encounter Summary ---
Author Organization [facility] Address [address] [place] [address] Care Team Providers Care Sr. Manager Name Role Phone Asuncion Contreras NP Primary Care Provider [phone] Reason for Visit * Reason Comments Urinary Frequency Burning with urinati on Encounter Details Date Type Department Care Team (Late st Contact Info) Description 04/03/2025 1:44 PM EDT - 04/03/2025 7:41 PM EDT Emergency [facility] Emergency [address] [place] [id number] Kilo Mccullough MD [address] [place] [address] Urinary tract infection associated with catheterization of urinary tract, unspecified indwelling urinary catheter type, initial encounter ([facility] V24) (Primary Dx) Discharge Disposition: Home or Self Care Social History Tobacco Use Types Packs/Day Years Used Date Smoking Tobacco: Every Day Smokeless Tobacco: Never Alcohol Use Standard Drinks/Week Comments No 0 (1 standard drink = 0.6 oz pur e alcohol) Housing Instability Answer Date Recorde d Are you worried that in the next 2 months you may not have stable housing? Patient declined 03/19/2025 Food Access & Nutrition Answer Date Rec orded Do you have access to a vari ety of food including fruits and vegetables? Patient declined 03/19/2025 Health Literacy Answer Date Recorded How often do you need to hav e someone help you when you read instructions, pamphlets, or other written material from your doctor or pharmacy? Patient declined 03/19/2025 Caregiver: How often do you need to have someone help you when you read instructions, pamphlets, or other written material from your doctor or pharmacy? Not on file 025 Financial Risk Answer Date Recorded How hard is it for you to pa y for the very basics like food, housing, medical care, and air conditioning / heating? Patient declined 03/19/2025 Transportation Answer Date Recorded Has the lack of transportati on kept you from meetings, work, or from getting things needed for daily living? Patient declined 03/19/2025 Has the lack of transportati on kept you from medical appointments or from getting medications? Patient declined 03/19/2025 Social Isolation Answer Date Recorded How often do you feel lonely or isolated from those around you? Patient declined 03/19/2025 Food Risk Answer Date Recorded Within the past 12 months we worried whether our food would run out before we got money to buy more. Patient declined 025 Within the past 12 months th e food we bought just didn't last and we didn't have money to get more. Patient declined 02/21 Dependent Care Answer Date Recorded Do you need help finding or paying for care for your loved ones. For example, child care supervisor or elderly care for an older adult? Patient declined 03/19/2025 Education Answer Date Recorded Do you think completing more education or training, like finishing a GED, going to college, or learning a trade, would be helpful for you? Patient declined 03/19/2025 Employment and Income Answer Date Recor ded During the last four weeks, have you been actively looking for work? Patient declined 03/19/2025 Living Situation Answer Date Recorded What is your living situation? Unrecognized valu e 03/19/2025 Interpersonal Safety Answer Date Record ed Physical Abuse Unrecognized value 03/19/2025 Verbal Abuse Unrecognized value 03/19/2025 Comments No Sex and Gender Information Value Date Recorded Sex Assigned at Female 06/13/2024 9:28 AM EST Legal Sex Female 7:41 PM EST Gender Identity Female 06/13/2024 9:28 AM EST Sexual Orientation Straight 06/23/2024 3: 08 PM EST documented as of this encounter Last Filed Vital Signs Vital Sign Reading Time Taken Comments Blood Pressure 122/76 04/03/2025 1:54 PM EDT Pulse 97 04/03/2025 1:54 PM EDT Temperature 36.7 C (98.1 F) 04/03/2025 1:54 PM EDT Respiratory Rate 18 04/03/2025 1:54 PM EDT Oxygen Saturation 98% 04/03/2025 1:54 PM EDT Inhaled Oxygen Concentration - - Weight - - Height - - Body Mass Index - - documented in this encounter Functional Status * Are you deaf or do you have serious difficulty hearing? Answer Date of Assessment Author No 03/26/2025 3:29 PM EDT Eligio Reeves RN * Are you blind or do you have serious difficulty seeing, even when wearing glasses? Answer Date of Assessment Author No 03/26/2025 3:29 PM EDT Eligio Reeves RN * Do you have serious difficulty walking or climbing stairs? Answer Date of Assessment Author Yes 03/26/2025 3:29 PM EDT Eligio Reeves RN * Do you have serious difficulty dressing or bathing? Answer Date of Assessment Author Yes 03/26/2025 3:29 PM EDT Eligio Reeves RN * Because of a physical, mental, or emotional condition, do you have serious difficulty doing errandsalone such as visiting the doctor? Answer Date of Assessment Author Yes 03/26/2025 3:29 PM EDT Eligio Reeves RN * Calculated C-SSRS Risk Score (Lifetime/Recent) Answer Date of Assessment Author No Risk Indicated 04/03/2025 1:55 PM EDT Snow Mai RN * [place] Suicide Severity Rating Scale (Screener/Recent Self-Report) Question Answer Date of Assessment Author 1. Wish to be (Past 1 Month) No 1:55 PM EDT Snow Mai RN 2. Non-Specific Active Suici trish Thoughts (Past 1 Month) No 04/03/2025 1:55 PM EDT Niru Mai RN 6. Suicidal Behavior (Lifetime) No 1:55 PM EDT Snow Mai RN documented as of this encounter Mental Status * Because of a physical, mental, or emotional condition, do you have serious difficulty concentrating, remembering, or making decisions? (5 years old or older) Answer Entry Date Author Yes 03/26/2025 3:29 PM EDT Eligio Reeves RN documented in this encounter Discharge Instructions * Discharge Instructions* Kilo Mccullough MD - 04/03/2025 4:49 PM EDT Plenty of fluids. Take the antibiotics that were prescribed from [facility]. Until they are gone You are being placed on antibiotics. Antibiotics can cause diarrhea. To decrease the chance of antibiotic associated diarrhea I would recommend taking a probiotic, whether in pill form or taking it in foods that are rich in probiotics, until the antibiotics are done and for 3 days after the antibiotics are completed. To the emergency department if you have significantly increased pain, fever or chills or nausea or vomiting. documented in this encounter Medications at Time of Discharge acetaminophen (TYLENOL) 500 mg tablet Take 1 tablet (500 mg total) by mouth every 8 (eight) hours if needed for mild pain. apixaban (ELIQUIS) 5 mg tablet TAKE 1 TABLET (5 MG) BY MOUTH IN THE MORNING AND AT BEDTIME. 10/20/2023 CertaVite Senior tablet Take 1 tablet by mouth 1 (one) time each day. 02/22/2025 cholecalciferol (VITAMIN D-3) 10 mcg (400 unit) tablet TAKE 1 TABLET ONCE DAILY 04/04/2021 diphenhydrAMINE (BENADRYL) 50 mg capsule Take 1 capsule (50 mg total) by mouth at bedtime as needed for itching. exemestane (AROMASIN) 25 mg tablet Take 1 tablet (25 mg total) by mouth 1 (one) time each day 90 tablet 01/31/2025 gabapentin (NEURONTIN) 300 mg capsule TAKE 2 CAPSULES BY MOUTH THREE TIMES EVERY DAY 07/11/2022 hydrOXYzine pamoate (VISTARIL) 25 mg capsule Take 1 capsule (25 mg total) by mouth 1 (one) time each day if needed for itching. 02/28/2025 lamoTRIgine (LaMICtal) 150 mg tablet Take 2 tablets (300 mg total) by mouth 1 (one) time each day. 07/09/2022 metoprolol succinate (TOPROL-XL) 50 mg 24 hr tablet Take 1 tablet (50 mg total) by mouth 1 (one) time each day. 07/08/2023 naltrexone (DEPADE) 50 mg tablet TAKE 1 TABLET BY MOUTH ONCE A DAY 06/30/2022 omeprazole (PriLOSEC) [address] capsule Take 1 capsule (20 mg total) by mouth 2 (two) times a day. 12/11/2011 perphenazine 4 mg tablet TAKE 1 TABLET BY MOUTH DAILY AND 2 TABLET BY MOUTH DAILY AT BEDTIME 06/30/2022 polyethylene glycol (MIRALAX) 17 gram packet Take 17 g by mouth 1 (one) time each day if needed for constipation. 51 g 03/24/2025 5 QUEtiapine (SEROquel) 25 mg tablet Take 1 tablet (25 mg total) by mouth 1 (one) time each day. 03/09/2025 QUEtiapine (SEROquel) 300 mg tablet Take 1 tablet (300 mg total) by mouth 1 (one) time each day. 07/09/2022 senna-docusate (PERICOLACE) 8.6-50 mg per tablet TAKE 2 TABLETS BY MOUTH EVERY DAY FOR CONSTIPATION 07/08/2023 tamsulosin (FLOMAX) 0.4 mg 24 hr capsule Take 1 capsule (0.4 mg total) by mouth 1 (one) time each day. 01/28/2024 traZODone (DESYREL) 100 mg tablet Take 2 tablets (200 mg total) by mouth at bedtime. 03/27/2022 phenazopyridine (PYRIDIUM) 95 mg tablet Take 2 tablets (190 mg total) by mouth 3 (three) times a day after meals for 3 days. 18 tablet 04/03/2025 5 vancomycin 1,000 mg in sodium chloride 0.9 % 250 mL IVPB Infuse 1,000 mg into a venous catheter every 12 (twelve) hours for 10 days. 03/24/2025 5 documented as of this encounter Ordered Prescriptions Prescription Sig Dispense Quantity Refills Last Filled Start Date End Date phenazopyridine (PYRIDIUM) 95 mg tablet Take 2 tablets (190 mg total) by mouth 3 (three) times a day after meals for 3 days. 18 tablet 04/03/2025 documented in this encounter Discharge Disposition Disposition Code Departure Means Destination Comment s Home or Self [facility] documented in this encounter Progress Notes * Snow Mai RN - 04/03/2025 1:45 PM EDT Patient ERIKA coming from home with complaints of burning when urinating. Was seen here a couple of days ago for the same thing, PER EMS patient taking Linezolid antibiotic appropriately. States burning has not gone away. PER EMS able to stand and pivot. hx of breast cancer. * Kilo Mccullough MD - 04/03/2025 1:32 PM EDT Images from the original note were not included. [facility] EMERGENCY EMERGENCY DEPARTMENT ENCOUNTER Patient: Hanh Clarke MR# [id number] Time of Service: 04/03/2025 1:44 PM History PCP: Asuncion Contreras NP. Chief Complaint Patient presents with Urinary Frequency Burning with urination Hanh Clarke is a 54 y.o. female with a history of CVA and recurrent UTI who presents to the ED with chief complaint Urinary Frequency (Burning with urination) . States has been going on since she was in the hospital before. She states it delgado when she urinates and she is urinating frequently. She denies any fever or chills or nausea or vomiting, abdominalpain or back pain. She does state that she just recently left the hospital. She is on linezolid andshe states that she is taking it twice a day every day. ROS Negative except for HPI. Allergies: Bupropion, Oxycodone, and Penicillins Medical History[1] Problem List[2] Surgical History[3] Family History[4] Social History[5] Physical Exam Vitals: 04/03/25 1354 BP: 122/76 BP Location: Right arm Patient Position: Lying Pulse: 97 Resp: 18 Temp: 36.7 ??C (98.1 ??F) TempSrc: Oral SpO2: 98% General Appearance: No acute distress, slightly slurred speech Skin: Dry Eyes: EOMI, no scleral icterus HENT: Normocephalic, atraumatic, moist mucous membranes Neck: Supple, normal range of motion Cardiovascular: Mildly tachycardic, no murmurs gallops or rubs, 2+ radial pulses Respiratory: Lungs clear to auscultation bilaterally, no respiratory distress, no wheezing or rhonchi Abdomen: Soft, mild diffuse tenderness, non-distended MSK: No edema or tenderness Neurologic: Awake, alert Psychiatric: Appropriate, cooperative Results Results for orders placed or performed during the hospital encounter of 04/03/25 Blood Culture, Peripheral #2 Collection Time: 04/03/25 3:39 PM Specimen: Blood, Venous Result Value Ref Range Culture, Blood Culture in progress Venous blood gas Collection Time: 04/03/25 3:39 PM Result Value Ref Range pH, Jose L 7.43 (H) 7.32 - 7.42 pH pCO2, Jose L 42 41 - 51 mmHg pO2, Jose L 34 25 - 40 mmHg HCO3, Venous 26.4 (H) 22.0 - 26.0 mmol/L O2 Sat, Jose L 55.4 % Base Excess, Jose L 3.2 (H) -2.0 - 2.0 mmol/L Lactate, with reflex Collection Time: 04/03/25 3:39 PM Result Value Ref Range LACTIC ACID 1.0 0.4 - 2.0 mmol/L Hepatic function panel Collection Time: 04/03/25 3:39 PM Result Value Ref Range Total Protein 7.3 6.0 - 8.0 g/dL Albumin 3.5 3.2 - 5.0 g/dL Total Bilirubin 0.3 0.0 - 1.4 mg/dL Bilirubin, Direct <0.1 0.0 - 0.3 mg/dL Bilirubin, Indirect ALT (SGPT) 38 10 - 60 unit/L AST (SGOT) 18 10 - 42 unit/L Alkaline Phosphatase 135 (H) 42 - 121 unit/L Urinalysis with reflex microscopic and culture Collection Time: 04/03/25 3:41 PM Result Value Ref Range Specific [place] Urine 1.018 1.003 - 1.030 pH, Urine 7.0 5.0 - 8.0 pH Leukocytes, Urine Large (A) Negative Nitrite, Urine Negative Negative Protein, Urine 300 (A) <=Trace mg/dL Glucose, Urine Negative Negative mg/dL Ketones, Urine Negative Negative mg/dL Urobilinogen, Urine 1.0 0.2 - 1.0 mg/dL Bilirubin, Urine Negative Negative Blood, Urine Large (A) Negative RBC, Urine 1,126.1 (H) 0 - 4 /HPF WBC, Urine 229.3 (H) 0 - 4 /HPF Squamous Epithelial, Urine 40 0 - 60 /LPF Bacteria, Urine Negative Negative /HPF Hyaline Casts, Urine 5.3 (H) 0 - 3 /LPF CBC auto differential Collection Time: 04/03/25 4:23 PM Result Value Ref Range WBC 8.4 4.8 - 10.8 K/mcL RBC 4.40 3.80 - 4.80 M/mcL Hemoglobin 11.3 (L) 11.5 - 16.0 g/dL Hematocrit 36.6 35.0 - 47.0 % MCV 83.4 79.0 - 98.0 FL MCH 25.7 (L) 27.0 - 32.0 pcg MCHC 30.9 (L) 32.0 - 37.0 g/dL RDW 18.3 (H) 11.0 - 15.0 % Platelets 502 (H) 130 - 400 K/mcL MPV 8.0 7.0 - 11.0 FL NRBC 0.0 <1.0 % NRBC Absolute 0.00 <0.10 K/mcL Neutrophils Relative 63.0 % Lymphocytes Relative 22.5 % Monocytes Relative 8.6 % Eosinophils Relative 4.3 % Basophils Relative 1.4 % Immature Granulocytes Relative 0.2 % Neutrophils Absolute 5.30 1.50 - 7.00 K/mcL Lymphocytes Absolute 1.89 1.00 - 5.00 K/mcL Monocytes Absolute 0.72 0.20 - 1.00 K/mcL Eosinophils Absolute 0.36 0.00 - 0.50 K/mcL Basophils Absolute 0.12 0.00 - 0.20 K/mcL Immature Granulocytes Absolute 0.02 0.00 - 0.03 K/mcL No orders to display Procedures Medical Decision Making 54-year-old female with a history of breast cancer in remission with brain metastasis, bipolar disorder CVA, tract infection complicated by left sided 1 cm kidney stone that required stent placement on 03/19, PE with an IVC filter on apixaban, substance abuse who [facility]. [facility] She was on IV vancomycin and cefpodoxime and transitionto oral linezolid because she left. She was taking it at home but dysuria continues. She was transferred to [facility] from here due to the CT finding of intracranial hemorrhage which turned out to not be an intracranial hemorrhage. Not septic appearing but due to recent history of sepsis labs were sent. Labs show no sign of sepsis. There is white cells in the urine and red cells in the urine but she continues to have ureteral stent so I do not think this represents worsening or new infection. I think she can go home to continue with her linezolid. She will follow-up with her primary doctor and with the urologist. Dysuria was treated with Pyridium Labs and imaging ordered in ED independently reviewed by me. My interpretation of the labs and/or imaging per ED course. Medications Administered Medications sodium chloride 0.9 % flush 10 mL (has no administration in time range) phenazopyridine (PYRIDIUM) tablet 190 mg (190 mg oral Given 04/03/25 1456) ED Course as of 04/03/25 1649 Mon Apr 03, 2025 164 Discussed the reassuring results of the test with the patient and plan for discharge and have her continue the antibiotics that were prescribed and I sent a prescription for the Pyridium. [WG] ED Course User Index [WG] Kilo Mccullough MD Clinical Impressions as of 04/03/251648 Urinary tract infection associated with catheterization of urinary tract, unspecified indwelling urinary catheter type, initial encounter ([facility] V24) Urine culture from here on 03/19 showed strep viridans and blood cultures were negative External Charts Reviewed: Transferred to [facility] from here earlier this month and discharged on 03/30. Concern for intracranial hemorrhage and her Eliquis (PE with IVC filter) was stopped and reversed. CT did not show any signs of intracranial hemorrhage and Eliquis was resumed there is also noted that she was admitted to [facility] recently for urosepsis. Urine culture was growing Streptococcus and she had blood culture that was positive for coag negative staph. She was treated with vancomycin was due to finish on 04/03 and cefpodoxime which was due to finish on 03/29. She left from the hospital AGAINST MEDICAL ADVICE on 01/28 and was discharged on linezolid Prescription management: In addition to any applicable prescriptions, the patient was counseled by me regarding [id number] medications that can be used at home. Current Discharge Medication List START taking these medications Details phenazopyridine (PYRIDIUM) 95 mg tablet Take 2 tablets (190 mg total) by mouth 3 (three) times a day after meals for 3 days. Qty: 18 tablet, Refills: 0 Disposition: Home CLINICAL IMPRESSION: 1. Urinary tract infection associated with catheterization of urinary tract, unspecified indwellingurinary catheter type, initial encounter ([place] [id number]) 04/03/2025 Kilo Mccullough MD [1] Past Medical History: Diagnosis Date Bipolar disorder ([facility], [facility] V28) Breast cancer metastasized to brain ([facility], [facility] V28) Cervical spinal stenosis GERD (gastroesophageal reflux disease) Hypertension Peripheral neuropathy due to chemotherapy ([facility]) Pulmonary embolism ([facility], [facility] V28) Stroke ([facility], [facility] V28) DX:Stroke ([facility]) [2] Patient Active Problem List Diagnosis Asthma Bipolar II disorder ([facility], [facility] V[facility]) Bursitis of left elbow 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 ([facility], [facility]) Cerebrovascular accident (CVA) ([facility], [facility] V28) Cervical stenosis of spine Chronic elbow pain, left Cocaine dependence ([facility], [facility] V[facility]) Depressive disorder Gastroesophageal reflux disease 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 Immature cataract Lower urinary tract infectious disease Malignant neoplasm of breast ([facility], [facility]) Migraine headache Peripheral visual field defect Presbyopia Pulmonary embolism ([facility], [facility] V[facility]) Tendinitis of foot Visual impairment Weakness of left side of body HTN (hypertension) Sepsis secondary to UTI ([facility], [facility] V[facility]) Anemia [3] Past Surgical History: Procedure Laterality Date NECK SURGERY 04/14/2024 C5-6, C6-7 ACDF, Dr/Colleen OTHER SURGICAL HISTORY IVC filter placement, history of PE and DVT OTHER SURGICAL HISTORY 2008 Right frontotemporal craniotomy resection of metastatic lesion, Dr. Leger, [facility] OTHER SURGICAL HISTORY left breast lumpectomy/reconstruction with removal of lymph nodes OTHER SURGICAL HISTORY Left arm ORIF surgery [4] Family History Problem Relation Name Age of Onset Hypertension Mother Stroke Father [5] Social History Tobacco Use Smoking status: Every Day Smokeless tobacco: Never Substance Use Topics Alcohol use: No Drug use: No Kilo Mccullough MD 04/03/25 1649 documented in this encounter Plan of Treatment Pending Results Name Type Priority Associated Diagnoses Date /Time Blood Culture, Peripheral #2 Microbiology STAT 04/03/2025 3:39 PM EDT documented as of this encounter Goals Goal Patient Goal Type Associated Problems Recent Progress Patient-Stated? Author Autogenerat ed Goal Care Plan Autogenerated Problem No Brenda Martinez RN documented as of this encounter Procedures Procedure Name Priority Date/Time Associated Diagnosis Comments CBC WITH AUTO DIFFERENTIAL STAT 04/03/2025 4:23 PM EDT CBC AND DIFFERENTIAL STAT 04/03/2025 4:23 PM EDT URINALYSIS WITH REFLEX MICROSCOPIC AND CULTURE STAT 04/03/2025 3:41 PM EDT GRIER URINE CULTURE TUBE STAT 04/03/2025 3:41 PM EDT URINALYSIS WITH REFLEX MICROSCOPIC AND CULTURE STAT 04/03/2025 3:41 PM EDT CULTURE URINE STAT 04/03/2025 3:41 PM EDT LACTATE, WITH REFLEX STAT 04/03/2025 3:39 PM EDT PROCALCITONIN STAT 04/03/2025 3:39 PM EDT CULTURE BLOOD STAT 04/03/2025 3:39 PM EDT VENOUS BLOOD GAS STAT 04/03/2025 3:39 PM EDT HEPATIC FUNCTION PANEL STAT Add-on 04/03/2025 3:39 PM EDT documented in this encounter Results * (ABNORMAL) CBC auto differential (04/03/2025 4:23 PM EDT) [facility] WBC 8.4 4.8 - 10.8 K/mcL LAB HEMETOLOGY METHOD 04/03/2025 4:35 PM EDT [facility] RBC 4.40 3.80 - 4.80 M/mcL LAB HEMETOLOGY METHOD 04/03/2025 4:35 PM EDT [facility] Hemoglobin 11.3(L) 11.5 - 16.0 g/dL LAB HEMETOLOGY METHOD 04/03/2025 4:35 PM EDT [facility] Hematocrit 36.6 35.0 - 47.0 % LAB HEMETOLOGY METHOD 04/03[facility]2025 [facility] MCV 83.4 79.0 - 98.0 FL LAB HEMETOLOGY METHOD 04/03/2025 4:35 [facility] MCH 25.7(L) 27.0 - 32.0 pcg LAB HEMETOLOGY METHOD 04/03/2025 4:35 [facility] MCHC 30.9(L) 32.0 - 37.0 g/dL LAB HEMETOLOGY METHOD 04/03/2025 4:35 PM [facility] RDW 18.3(H) 11.0 - 15.0 % LAB HEMETOLOGY METHOD 04/03/2025 4:35 PM EDT [facility] Platelets 502(H) 130 - 400 K/mcL LAB HEMETOLOGY METHOD 04/03/2025 4:[facility] MPV 8.0 7.0 - 11.0 FL LAB HEMETOLOGY METHOD 04/03/2025 4:35 PM [facility] NRBC 0.0 <1.0 % LAB HEMETOLOGY METHOD 04/03/2025 4:35 PM EDT [facility] NRBC Absolute 0.00 <0.10 K/mcL LAB HEMETOLOGY METHOD 04/03/2025 4:35 PM EDT [facility] Neutrophils Relative 63.0 % LAB HEMETOLOGY METHOD 04/03/2025 4:35 PM [facility] Lymphocytes Relative 22.5 % LAB HEMETOLOGY METHOD 04/03/2025 4:35 PM EDT [facility] Monocytes Relative 8.6 % LAB HEMETOLOGY METHOD 04/03/2025 4:35 PM EDT [facility] Eosinophils Relative 4.3 % LAB HEMETOLOGY METHOD 04/03/2025 4:35 PM T [facility] Basophils Relative 1.4 % LAB HEMETOLOGY METHOD 04/03/2025 4:35 PM [facility] Immature Granulocytes Relative 0.2 % LAB HEMETOLOGY METHOD 04/03/2025 4:35 PM [facility] Neutrophils Absolute 5.30 1.50 - 7.00 K/mcL LAB HEMETOLOGY METHOD 04/03/2025 4:35 PM [facility] Lymphocytes Absolute 1.89 1.00 - 5.00 K/mcL LAB HEMETOLOGY METHOD 04/03/2025 4:35 PM [facility] Monocytes Absolute 0.72 0.20 - 1.00 K/mcL LAB HEMETOLOGY METHOD 04/03/2025 4:35 PM EDT [facility] Eosinophils Absolute 0.36 0.00 - 0.50 K/mcL LAB HEMETOLOGY METHOD 04/03/2025 4:35 PM EDT [facility] Basophils Absolute 0.12 0.00 - 0.20 K/mcL LAB HEMETOLOGY METHOD 04/03/2025 4:35 PM [facility] Immature Granulocytes Absolute 0.02 0.00 - 0.03 K/mcL LAB HEMETOLOGY METHOD 04/03/2025 4:35 PM EDT [facility] Blood Venous blood specimen / Unknown Venipuncture / Unknown 04/03/2025 4:23 PM EDT 04/03/2025 4:29 PM EDT us Kilo Mccullough MD LAB BLOOD ORDERABLES Final R esult Performing Organization Address City/[facility]/ZIP Co de Phone Number [facility] [address] [place] [address], [place] [phone] * Culture urine (04/03/2025 3:41 PM EDT) Culture, Urine No growth 04/04/2025 8:39 AM EDT [facility] Urine Urine specimen obtained by clean catch procedure / Unknown Non-blood Collection / Unknown 04/03/2025 3:41 PM EDT 04/03/2025 4:39 PM EDT us Kilo Mccullough MD LAB MICROBIOLOGY - GENERAL O RDERABLES Final Result Performing Organization Address [facility]/ZIP Co de Phone Number [facility] [address] [place] [address], [place] [phone] * Grier urine culture tube (04/03/2025 3:41 PM EDT) Extra Tube Hold for add-ons. 04/03/2025 5:01 PM EDT [facility] Comment:Auto resulted. Urine Urine specimen obtained by clean catch procedure / Unknown Non-blood Collection / Unknown 04/03/2025 3:41 PM EDT 04/03/2025 3:46 PM EDT us Kilo Mccullough MD LAB URINE ORDERABLES Final R esult [facility] [address] [place] [address], [place] [phone] * (ABNORMAL) Urinalysis with reflex microscopic and culture (04/03/2025 3:41 PM EDT) Pathologist [facility] Specific [place] Urine 1.018 1.003 - 1.030 LAB URINALYSIS - AUTOMATED METHOD 04/03/2025 4:39 PM [facility] pH, Urine 7.0 5.0 - 8.0 pH LAB URINALYSIS - AUTOMATED METHOD 04/03/2025 4:39 PM [facility] Leukocytes, Urine Large(A) Negative LAB URINALYSIS - AUTOMATED METHOD 04/03/2025 4:39 PM [facility] Nitrite, Urine Negative Negative LAB URINALYSIS - AUTOMATED METHOD 04/03/2025 4:39 PM [facility] Protein, Urine 300(A) <=Trace mg/dL LAB URINALYSIS - AUTOMATED METHOD 04/03/2025 4:39 PM [facility] Glucose, Urine Negative Negative mg/dL LAB URINALYSIS - AUTOMATED METHOD 04/03/2025 4:39 PM [facility] Ketones, Urine Negative Negative mg/dL LAB URINALYSIS - AUTOMATED METHOD 04/03/2025 4:39 PM [facility] Urobilinogen , Urine 1.0 0.2 - 1.0 mg/dL LAB URINALYSIS - AUTOMATED METHOD 04/03/2025 4:39 PM [facility] Bilirubin, Urine Negative Negative LAB URINALYSIS - AUTOMATED METHOD 04/03/2025 4:39 PM [facility] Blood, Urine Large(A) Negative LAB URINALYSIS - AUTOMATED METHOD 04/03/2025 4:39 PM [facility] RBC, Urine 1,126.1(H) 0 - 4 /HPF LAB URINALYSIS - AUTOMATED METHOD 04/03/2025 4:39 PM [facility] WBC, Urine 229.3(H) 0 - 4 /HPF LAB URINALYSIS - AUTOMATED METHOD 04/03/2025 4:39 PM EDT [facility] Squamous Epithelial, Urine 40 0 - 60 /LPF LAB URINALYSIS - AUTOMATED METHOD 04/03/2025 4:39 PM EDT [facility] Bacteria, Urine Negative Negative /HPF LAB URINALYSIS - AUTOMATED METHOD 04/03/2025 4:39 PM EDT [facility] Hyaline Casts, Urine 5.3(H) 0 - 3 /LPF LAB URINALYSIS - AUTOMATED METHOD 04/03/2025 4:39 PM EDT [facility] Urine Urine specimen obtained by clean catch procedure / Unknown Non-blood Collection / Unknown 04/03/2025 3:41 PM EDT 04/03/2025 3:46 PM EDT Kilo Mccullough MD LAB URINE ORDERABLES Final R esult [facility] [address] [place] [address], [place] [phone] * (ABNORMAL) Hepatic function panel (04/03/2025 3:39 PM EDT) Total Protein 7.3 6.0 - 8.0 g/dL LAB CHEMISTRY METHOD 04/03/2025 4:33 PM EDT [facility] Albumin 3.5 3.2 - 5.0 g/dL LAB CHEMISTRY METHOD 04/03/2025 4:33 PM EDT [facility] Total Bilirubin 0.3 0.0 - 1.4 mg/dL LAB CHEMISTRY METHOD 04/03/2025 4:33 PM EDT [facility] Bilirubin, Direct <0.1 0.0 - 0.3 mg/dL LAB CHEMISTRY METHOD 04/03/2025 4:33 PM EDT [facility] Bilirubin, Indirect LAB CHEMISTRY METHOD 04/03/2025 4:33 PM EDT [facility] Comment:Unable to calculate Indirect Bilirubin. ALT (SGPT) 38 10 - 60 unit/L LAB CHEMISTRY METHOD 04/03/2025 4:33 PM EDT [facility] AST (SGOT) 18 10 - 42 unit/L LAB CHEMISTRY METHOD 04/03/2025 4:33 PM EDT [facility] Alkaline Phosphatase 135(H) 42 - 121 unit/L LAB CHEMISTRY METHOD 04/03/2025 4:33 PM EDT [facility] Blood Venous blood specimen / Unknown Venipuncture / Unknown 04/03/2025 3:39 PM EDT 04/03/2025 3:45 PM EDT us Kilo Mccullough MD LAB BLOOD ORDERABLES Final R esult Performing Organization Address City/[facility]/ZIP Co de Phone Number [facility] [address] [place] [address], [place] [phone] * Lactate, with reflex (04/03/2025 3:39 PM EDT) LACTIC ACID 1.0 0.4 - 2.0 mmol/L LAB CHEMISTRY METHOD 04/03/2025 4:29 PM EDT [facility] Blood Venous blood specimen / Unknown Venipuncture / Unknown 04/03/2025 3:39 PM EDT 04/03/2025 3:45 PM EDT Kilo Mccullough MD LAB BLOOD ORDERABLES Final R esult [facility] [address] [place] [address], [place] [phone] * (ABNORMAL) Venous blood gas (04/03/2025 3:39 PM EDT) pH, Jose L 7.43(H) 7.32 - 7.42 pH 04/03/2025 3:53 PM EDT [facility] pCO2, Jose L 42 41 - 51 mmHg 04/03/2025 3:53 PM EDT [facility] pO2, Jose L 34 25 - 40 mmHg 04/03/2025 3:53 PM EDT [facility] HCO3, Venous 26.4(H) 22.0 - 26.0 mmol/L 04/03/2025 3:53 PM EDT [facility] O2 Sat, Jose L 55.4 % 04/03/2025 3:53 PM EDT [facility] Base Excess, Jose L 3.2(H) -2.0 - 2.0 mmol/L 04/03/2025 3:53 PM EDT [facility] Blood Venous blood specimen / Unknown Venipuncture / Unknown 04/03/2025 3:39 PM EDT 04/03/2025 3:44 PM EDT us Kilo Mccullough MD LAB BLOOD ORDERABLES Final R esult [facility] [address] [place] [address], * Procalcitonin (04/03/2025 3:39 PM EDT) Procalcitonin 0.02 <=0.16 ng/mL LAB CHEMISTRY METHOD 04/04/2025 9:54 AM EDT [facility] Blood Venous blood specimen / Unknown Venipuncture / Unknown 04/03/2025 3:39 PM EDT 04/03/2025 3:45 PM EDT Narrative [facility] - 04/04/2025 9:54 AM EDT Procalcitonin > 2.00 ng/ml: Procalcitonin Levels above 2.00 ng/ml, on the first day of ICU admission represent a high risk for progression to severe sepsis and/or septic shock. Procalcitonin < 0.50 ng/ml: Procalcitonin levels below 0.50 ng/ml on the first day of ICU admission represent a low risk for progression to severe sepsis and/or septic shock. Concentrations <0.5 ng/mL do not exclude an infection, on account of local ized infections (without systemic signs) which can be associated with such low concentrations, or a systemic infection in its initial stages (<6 hours). Furthermore, increased procalcitonin can occur without infection. PCT concentrations between 0.5 and 2.0 ng/mL should be interpreted taking into account the patient's history. It is recommended to retest PCT within 6-24 hours if any concentrations <2.0 ng/mL are obtained. us Kilo Mccullough MD LAB BLOOD ORDERABLES Final R esult [facility] ([facility]) [facility] [address] [place] [address], documented in this encounter Visit Diagnoses Diagnosis Urinary tract infection associated with catheterization of urinary tract, unspecified indwelling urinary catheter type, initial encounter ([facility] V24)- Primary documented in this encounter Administered Medications Inactive Administered Medications - up to 3 most recent administrations Medication Order MAR Action Action Date Dose Rate Site phenazopyridine (PYRIDIUM) tablet 190 mg 190 mg, oral, Once, On Thu04/03/25 at 1418, For 1 dose Given 04/03/2025 2:56 PM EDT 190 mg sodium chloride 0.9 % flush 10 mL 10 mL, intravenous, As needed, line care, Starting on Thu04/03/25 at 1404 documented in this encounter Active and Recently Administered Medications Times are shown in EDT. Scheduled Medication Order 04/01/2025 04/02/2025 04/03/2025 phenazopyridine (PYRIDIUM) tablet 190 mg (COMPLETED) 190 mg, oral, Once, On Thu04/03/25 at 1418, For 1 dose 1456 (Given - Provid er: Snow Mai RN) PRN Medication Order 04/01/2025 04/02/2025 04/03/2025 sodium chloride 0.9 % flush 10 mL(Linked Group 1) 10 mL, intravenous, As needed, line care, Starting on Thu04/03/25 at 1404 Linked Groups Order Group 1: Insert large bore peripheral IV (COMPLETED) STAT, Once, On Thu04/03/25 at 1405, For 1 occurrence And Saline lock IV (COMPLETED) Routine, Once, On Thu04/03/25 at 1405, For 1 occurrence And sodium chloride 0.9 % flush 10 mLJump to med 10 mL, intravenous, As needed, line care, Starting on Thu04/03/25 at 1404 documented in this encounter Orders Medications Ordered That [place]anch[place] ht Not Have Been Administered Count Last Ordered Date First Ordered Date sodium chloride 0.9 % flush 10 mL 1 025 IV Count Last Ordered Date First Orde red Date INSERT PERIPHERAL IV 1 04/03/2025 SALINE LOCK IV 1 04/03/2025 documented in this encounter Additional Health Concerns Active Problems Noted Date Diagnosed Date Autogenerated Problem 03/19/2025 documented as of this encounter Care Teams Sr. Manager Relationship Specialty Start Date End Date Asuncion Contreras NP [address] [place] [phone] PCP - General Nurse Practitioner 03/24/22 documented as of this encounter
--- OUTSIDE RECORDS SUMMARY | 2025-04-06 10:49 | XMS_ITS | Encounter Summary ---
Author Organization [facility] Address [address] [place] [address] Care Team Providers Care Parts Order And Stock Clerk Name Role Phone Asuncion Contreras NP Primary Care Provider [phone] Reason for Visit * Reason Comments Abdominal Pain Encounter Details Date Type Department Care Team ([facility] st Contact Info) Description 04/06/2025 10:49 AM EDT - 04/06/2025 3:45 PM EDT Emergency [facility] Emergency [address] [place] [address] Left flank pain (Primary Dx) Discharge Disposition: Home or Self [...] care for your loved ones. For example, children's minister or elderly care for an older adult? [...] Sign Reading Time Taken Comments Blood Pressure 118/80 04/06/2025 3:02 PM EDT Pulse 88 04/06/2025 3:02 PM EDT Temperature 36.8 C (98.2 F) 04/06/2025 3:02 PM EDT Respiratory Rate 15 04/06/2025 3:02 PM EDT Oxygen Saturation 100% 04/06/2025 3:02 PM EDT Inhaled Oxygen Concentration - - Weight 75.3 kg (166 lb) 04/06/2025 11:09 AM EDT Height 162.6 cm (5' 4 ) 04/06/2025 11:09 AM EDT Body Mass Index 28.49 04/06/2025 11:09 AM EDT documented in this encounter Functional Status * [...] Date of Assessment Author No Risk Indicated 04/06/2025 11:07 AM EDT Nehemias Lopez RN * [place] Suicide Severity Rating Scale (Screener/Recent Self-Report) Question Answer Date of Assessment Author 1. Wish to be (Past 1 Month) No 11:07 AM EDT Nehemias Brumfield RN 2. Non-Specific Active Suici trish Thoughts (Past 1 Month) No 04/06/2025 11:07 AM EDT Sami Brumfield RN 6. Suicidal Behavior (Lifetime) No 11:07 AM EDT Nehemias Brumfield, NICOLE documented as of this encounter Mental Status * Because of a physical, mental, or emotional condition, do you have serious difficulty concentrating, remembering, or making decisions? (5 years old or older) Answer Entry Date Author Yes 03/26/2025 3:29 PM EDT Eligio Reeves RN documented in this encounter Discharge Instructions * Discharge Instructions* HANNAH Otero - 04/06/2025 3:01 PM EDT Patient instructed to use Tylenol 1000 mg 3 times a day as needed for pain and oxycodone as needed for severe pain, ideally only 1-2 times a day. Oxycodone is addictive and will cause lethargy. Forcefluids and continue with all medication as previously directed. Follow-up with PCP tomorrow and then urology on Thursday. * Attachments The following attachments cannot be sent through Care Everywhere. * Flank Pain (Guamanian) documented in this encounter Medications at Time [...] mouth 2 (two) times a day. 12/11/2011 oxyCODONE (ROXICODONE) 5 mg immediate release tabletIndication s:Left flank pain Take 1 tablet (5 mg total) by mouth every 6 (six) hours if needed for severe pain. Max Daily Amount: 20 mg 10 tablet 04/06/2025 perphenazine 4 mg tablet TAKE 1 TABLET [...] for 3 days. 18 tablet 04/03/2025 5 documented as of this encounter Ordered Prescriptions Prescription Sig Dispense Quantity Refills Last Filled Start Date End Date oxyCODONE (ROXICODONE) 5 mg immediate release tabletIndications:L eft flank pain Take 1 tablet (5 mg total) by mouth every 6 (six) hours if needed for severe pain. Max Daily Amount: 20 mg 10 tablet 04/06/2025 documented in this encounter Discharge Disposition Disposition Code Departure Means Destination Comment s Home or Self Care documented in this encounter Progress Notes * Nehemias Brumfield RN - 04/06/2025 2:11 PM EDT Pt tolerated oxycodone PO without side effects; previously tolerated at last visit. Allergies updated. * Nehemias Brumfield RN - 04/06/2025 10:53 AM EDT BIBA from home c/o left sided abdomen pain. States ongoing for the past 3 weeks, dx with an 11cm left side kidney stone a couple weeks ago. Endorses WATTS, onset 0930, denies n/v. Pt hasn't taken meds today, is on blood thinners. * HANNAH Otero - 04/06/2025 10:47 AM EDT Emergency Medicine Note Patient Name: Hanh Clarke Initial Evaluation: 04/06/2025 : 1970 Patient's PCP: Asuncion Contreras NP Emergency Physician: HANNAH Otero History of Present Illness Chief Complaint: Chief Complaint Patient presents with Abdominal Pain HPI: 54-year-old female brought in by ambulance after complaining of left flank pain. She states that she had a large kidney stone several weeks ago and was hospitalized, and stents were placed. She also had urosepsis. She was sent home on IV antibiotics, then upon reevaluation in the emergency department, was changed to oral linezolid twice a day and it is supposed to end tomorrow. She has increased pain in the left flank and denies any fevers, chills, nausea or vomiting. She denies any dysuria, but was treated with Pyridium several days ago to assist with some of the pain. She has an appointment tomorrow with her PCP, but has yet to see the urologist after her stent was placed on 03/19. She lives home with her live-in strategic planning consultant. Prior history includes CVA, PE, substance abuse, bipolar disorder breast cancer, peripheral neuropathy and spinal stenosis. ROS: I have performed a ROS with the pertinent positives and negatives documented in the history ofpresent illness. Previous History Medical History[1] Surgical History[2] Social History[3] Family History[4] is allergic to bupropion and penicillins. Medications Ordered Prior to Encounter[5] Physical Exam ED Triage Vitals [04/06/25 1057] Temp Heart Rate Resp BP 36.7 ??C (98.1 ??F) 90 18 101/55 SpO2 Temp Source Heart Rate Source Patient Position 100 % Oral Monitor Lying BP Location FiO2 (%) Right arm -- Physical Exam Constitutional General Exam awake, calm, cooperative, No apparent distress Skin Skin Exam warm, dry, No diaphoresis Eyes Eye Exam PERRLA, EOMI ENT ENT exam mucosa moist, throat is clear, no lymphadenopathy Neck Neck Exam soft/supple, full range of motion, no JVD, no nuchal rigidity Respiratory Respiratory Exam clear to auscultation Cardiovascular Cardiovascular Exam regular rate and rhythm, no JVD Gastrointestinal Gastrointestinal Exam soft nontender anteriorly, tenderness to palpation on the left flank and lateral abdomen, no rebound, normal active bowel sounds, no hepatomegaly Musculoskeletal Musculoskeletal Exam no calf tenderness, no pedal edema Neurological Neurological Exam alert and oriented X3 Lymphatic Lymphatic Exam No: lymphadenopathy Psychiatric Psychiatric exam stable mood and affect Results Labs Reviewed COMPREHENSIVE METABOLIC PANEL - Abnormal Result Value Sodium 138 Potassium 4.5 Chloride 105 CO2 25 Anion Gap 8 Glucose 99 BUN 6 Creatinine 0.72 eGFR 98 BUN/Creatinine Ratio 8.3 Calcium 10.9 (*) AST (SGOT) 28 ALT (SGPT) 41 Alkaline Phosphatase 130 (*) Total Protein 7.3 Albumin 3.6 Total Bilirubin 0.3 CBC WITH AUTO DIFFERENTIAL - Abnormal WBC 7.2 RBC 4.60 Hemoglobin 11.9 Hematocrit 38.2 MCV 83.0 MCH 25.9 (*) MCHC 31.2 (*) RDW 17.9 (*) Platelets 568 (*) MPV 8.1 NRBC 0.0 NRBC Absolute 0.00 Neutrophils Relative 52.6 Lymphocytes Relative 32.5 Monocytes Relative 9.3 Eosinophils Relative 4.2 Basophils Relative 1.1 Immature Granulocytes Relative 0.3 Neutrophils Absolute 3.78 Lymphocytes Absolute 2.34 Monocytes Absolute 0.67 Eosinophils Absolute 0.30 Basophils Absolute 0.08 Immature Granulocytes Absolute 0.02 URINALYSIS WITH REFLEX MICROSCOPIC - Abnormal Specific [place] Urine 1.020 pH, Urine 7.0 Leukocytes, Urine Large (*) Nitrite, Urine Negative Protein, Urine >=1000 (*) Glucose, Urine Negative Ketones, Urine Trace (*) Urobilinogen, Urine 1.0 Bilirubin, Urine Negative Blood, Urine Large (*) RBC, Urine 1,334.0 (*) WBC, Urine 160.8 (*) Squamous Epithelial, Urine 40 Bacteria, Urine Negative Hyaline Casts, Urine 3.0 CBC AND DIFFERENTIAL Narrative: The following orders were created for panel order CBC and differential. Procedure Abnormality Status --------- ------ CBC auto differential[[id number]] Abnormal Final result Please view results for these tests on the individual orders. URINALYSIS WITH REFLEX MICROSCOPIC Narrative: The following orders were created for panel order Urinalysis with reflex microscopic. Procedure Abnormality Status --------- ------ Urinalysis with reflex ...[[id number]] Abnormal Final result Please view results for these tests on the individual orders. URINALYSIS WITH REFLEX MICROSCOPIC AND CULTURE Narrative: The following orders were created for panel order Urinalysis with reflex microscopic and culture. Procedure Abnormality Status --------- ------ Urinalysis with reflex ...[[id number]] Grier urine culture tube[[id number]] Final result Please view results for these tests on the individual orders. URINALYSIS WITH REFLEX MICROSCOPIC AND CULTURE Abnormal Labs Reviewed COMPREHENSIVE METABOLIC PANEL - Abnormal; Notable for the following components: Result Value Calcium 10.9 (*) Alkaline Phosphatase 130 (*) All other components within normal limits CBC WITH AUTO DIFFERENTIAL - Abnormal; Notable for the following components: MCH 25.9 (*) MCHC 31.2 (*) RDW 17.9 (*) Platelets 568 (*) All other components within normal limits URINALYSIS WITH REFLEX MICROSCOPIC - Abnormal; Notable for the following components: Leukocytes, Urine Large (*) Protein, Urine >=1000 (*) Ketones, Urine Trace (*) Blood, Urine Large (*) RBC, Urine 1,334.0 (*) WBC, Urine 160.8 (*) All other components within normal limits US Retroperitoneal Limited Final Result Bilateral nephrolithiasis. Fullness of the left renal collecting system without overt hydronephrosis (stent not visualized). -------- FINAL REPORT -------- Dictated By: Chuck Perkins Dictated Date: 04/06/2025 14:14 ET Assigned Physician: Chuck Perkins Reviewed and Electronically Signed By: Chuck Perkins Signed Date: 04/06/2025 14:16 ET Workstation ID: [id number] Transcribed By: Self Edit Transcribed Date: 04/06/2025 14:14 ET I have discussed the incidental/abnormal imaging and/or lab abnormalities with the patient and haveinstructed them the need for further evaluation and workup with their primary care doctor. I have provided the patient with a paper copy of the abnormality. The laboratory results, imaging results and other diagnostic exam results were reviewed in the EMR. EKG Interpretation Critical Care Time None ? Differential Diagnosis Pyelonephritis Hydronephrosis Noncompliance Acute kidney failure Discomfort due to stent Medical Decision Making Case discussed with the patient and her strategic planning consultant. The patient is a poor historian and previous records matched up with the caretakers memory of the situation. Her last CT of the abdomen on 03/26 shows cystitis with left-sided ureteritis and a nephroureteral stent in place. A urinalysis performed on04/03 shows no growth and she remains on linezolid. We will check baseline labs and also check renal ultrasound for hydronephrosis/obstruction. Once labs result, we will contact urologist, Dr. Harvey, for follow-up appointment. Patient reevaluated, labs unremarkable except for pyuria. Ultrasound shows bilateral nephrolithiasis without hydronephrosis. Patient remains on antibiotics and has a follow-up appointment scheduled with Dr. Harvey on Thursday. Patient be discharged with instructions to use Tylenol alternate with oxycodone as needed for severe pain and was warned that this may cause lethargy and is addictive. She didhave a history of cocaine abuse in the past. Medications oxyCODONE (ROXICODONE) immediate release tablet 5 mg (5 mg oral Given 04/06/25 1221) Clinical Impressions as of 04/06/25 1501 Left flank pain Amount and/or Complexity of Data Reviewed External Data Reviewed: Encounters reviewed in Chart Review. Details: Labs: ordered. Decision-making details documented in ED Course. Radiology: ordered. Decision-making details documented in ED Course. ECG/medicine tests: ordered. Decision-making details documented in ED Course. Procedures Procedures Diagnosis 1. Left flank pain oxyCODONE (ROXICODONE) 5 mg immediate release tablet Disposition Discharge ED Prescriptions Medication Sig Dispense Start Date End Date Auth. Provider oxyCODONE (ROXICODONE) 5 mg immediate release tablet Take 1 tablet (5 mg total) by mouth every 6 (six) hours if needed for severe pain. Max Daily Amount: 20 mg 10 tablet 04/06/2025 -- HANNAH Otero Physician Attestation HANNAH Otero 04/06/25 1145 HANNAH Otero 04/06/25 1451 [1] Past Medical History: Diagnosis Date Bipolar disorder ([facility] V24, [facility] V28[facility] Breast cancer metastasized to brain ([facility] V24, [facility] V28) Cervical spinal stenosis GERD (gastroesophageal reflux disease) Hypertension Peripheral neuropathy due to chemotherapy ([facility] V24) Pulmonary embolism ([facility] V24, [facility] V28[facility] Stroke ([facility] V24, [facility] V28) DX:Stroke ([facility]) [2] Past Surgical History: Procedure Laterality Date NECK SURGERY 04/14/2024 C5-6, C6-7 ACDF, /Colleen OTHER SURGICAL HISTORY IVC filter placement, history of PE and DVT OTHER SURGICAL HISTORY 2009 Right frontotemporal craniotomy resection of metastatic lesion, Dr. Leger, [facility] OTHER SURGICAL HISTORY left breast lumpectomy/reconstruction with removal of lymph nodes OTHER SURGICAL HISTORY Left arm ORIF surgery [3] Social History Tobacco Use Smoking status: Every Day Smokeless tobacco: Never Substance Use Topics Alcohol use: No Drug use: No [4] Family History Problem Relation Name Age of Onset Hypertension Mother Stroke Father [5] No current facility-administered medications on file prior to encounter. Current Outpatient Medications on File Prior to Encounter Medication Sig Dispense Refill acetaminophen (TYLENOL) 500 mg tablet Take 1 tablet (500 mg total) by mouth every 8 (eight) hours if needed for mild pain. apixaban (ELIQUIS) 5 mg tablet TAKE 1 TABLET (5 MG) BY MOUTH IN THE MORNING AND AT BEDTIME. CertaVite Senior tablet Take 1 tablet by mouth 1 (one) time each day. cholecalciferol (VITAMIN D-3) 10 mcg (400 unit) tablet TAKE 1 TABLET ONCE DAILY diphenhydrAMINE (BENADRYL) 50 mg capsule Take 1 capsule (50 mg total) by mouth at bedtime as neededfor itching. exemestane (AROMASIN) 25 mg tablet Take 1 tablet (25 mg total) by mouth 1 (one) time each day 90 tablet 0 gabapentin (NEURONTIN) 300 mg capsule TAKE 2 CAPSULES BY MOUTH THREE TIMES EVERY DAY hydrOXYzine pamoate (VISTARIL) 25 mg capsule Take 1 capsule (25 mg total) by mouth 1 (one) time each day if needed for itching. lamoTRIgine (LaMICtal) 150 mg tablet Take 2 tablets (300 mg total) by mouth 1 (one) time each day. metoprolol succinate (TOPROL-XL) 50 mg 24 hr tablet Take 1 tablet (50 mg total) by mouth 1 (one) time each day. naltrexone (DEPADE) 50 mg tablet TAKE 1 TABLET BY MOUTH ONCE A DAY omeprazole (PriLOSEC) [address] capsule Take 1 capsule (20 mg total) by mouth 2 (two) times a day. perphenazine 4 mg tablet TAKE 1 TABLET BY MOUTH DAILY AND 2 TABLET BY MOUTH DAILY AT BEDTIME phenazopyridine (PYRIDIUM) 95 mg tablet Take 2 tablets (190 mg total) by mouth 3 (three) times a day after meals for 3 days. 18 tablet 0 polyethylene glycol (MIRALAX) 17 gram packet Take 17 g by mouth 1 (one) time each day if needed forconstipation. 51 g 0 QUEtiapine (SEROquel) 25 mg tablet Take 1 tablet (25 mg total) by mouth 1 (one) time each day. QUEtiapine (SEROquel) 300 mg tablet Take 1 tablet (300 mg total) by mouth 1 (one) time each day. senna-docusate (PERICOLACE) 8.6-50 mg per tablet TAKE 2 TABLETS BY MOUTH EVERY DAY FOR CONSTIPATION tamsulosin (FLOMAX) 0.4 mg 24 hr capsule Take 1 capsule (0.4 mg total) by mouth 1 (one) time each day. (Patient not taking: Reported on 01/10/2025) traZODone (DESYREL) 100 mg tablet Take 2 tablets (200 mg total) by mouth at bedtime. [] vancomycin 1,000 mg in sodium chloride 0.9 % 250 mL IVPB Infuse 1,000 mg into a venous catheter every 12 (twelve) hours for 10 days. HANNAH Otero 04/06/25 1501 Cosigned by Kecia Rodas MD at 04/06/2025 3:42 PM EDT Associated attestation - Kecia Rodas MD - 04/06/2025 3:42 PM EDT I was immediately available in the emergency department during this patient's care but did not perform history and physical nor participate in management decisions. Kecia Marsh MD documented in this encounter Plan of Treatment Not on file documented as of this encounter Goals Goal Patient Goal Type Associated Problems Recent Progress Patient-Stated? Author Autogenerat ed Goal Care Plan Autogenerated Problem No Brenda Martinez, RN documented as of this encounter Procedures Procedure Name Priority Date/Time Associated Diagnosis Comments GRIER URINE CULTURE TUBE STAT 04/06/20 12:32 PM EDT URINALYSIS WITH REFLEX MICROSCOPIC AND CULTURE STAT 04/06/2025 12:32 PM EDT URINALYSIS WITH REFLEX MICROSCOPIC STAT 04/06/2025 12:29 PM EDT URINALYSIS WITH REFLEX MICROSCOPIC STAT 04/06/2025 12:29 PM EDT US RETROPERITONEAL LIMITED STAT 04/06/2025 12:18 PM EDT CBC WITH AUTO DIFFERENTIAL STAT 04/06/2025 11:46 AM EDT CBC AND DIFFERENTIAL STAT 04/06/2025 11:46 AM EDT COMPREHENSIVE METABOLIC PANEL STAT 04/06/2025 11:46 AM EDT documented in this encounter Results * Grier urine culture tube (04/06/2025 12:32 PM EDT) [facility] Extra Tube Hold for add-ons. 04/06/2025 2:01 PM EDT [facility] Comment:Auto resulted. Urine Urine specimen obtained by clean catch procedure / Unknown Non-blood Collection / Unknown 04/06/2025 12:32 PM EDT 04/06/2025 12:48 PM EDT us Tor YOUNG LAB URINE ORDERABLES Final R esult [facility] [address] [place] [address], * (ABNORMAL) Urinalysis with reflex microscopic (04/06/2025 12:29 PM EDT) [facility] Specific [place] Urine 1.020 1.003 - 1.030 LAB URINALYSIS - AUTOMATED METHOD 04/06/2025 1:25 PM EDT [facility] pH, Urine 7.0 5.0 - 8.0 pH LAB URINALYSIS - AUTOMATED METHOD 04/06/2025 1:25 PM T [facility] Leukocytes, Urine Large(A) Negative LAB URINALYSIS - AUTOMATED METHOD 04/06/2025 1:25 PM EDT [facility] Nitrite, Urine Negative Negative LAB URINALYSIS - AUTOMATED METHOD 04/06/2025 1:25 PM T [facility] Protein, Urine >=1000(A) <=Trace mg/dL LAB URINALYSIS - AUTOMATED METHOD 04/06/2025 1:25 PM EDT [facility] Glucose, Urine Negative Negative mg/dL LAB URINALYSIS - AUTOMATED METHOD 04/06/2025 1:25 PM T [facility] Ketones, Urine Trace(A) Negative mg/dL LAB URINALYSIS - AUTOMATED METHOD 04/06/2025 1:25 PM T [facility] Urobilinogen , Urine 1.0 0.2 - 1.0 mg/dL LAB URINALYSIS - AUTOMATED METHOD 04/06/2025 1:25 PM T [facility] Bilirubin, Urine Negative Negative LAB URINALYSIS - AUTOMATED METHOD 04/06/2025 1:25 PM [facility] Blood, Urine Large(A) Negative LAB URINALYSIS - AUTOMATED METHOD 04/06/2025 1:25 PM [facility] RBC, Urine 1,334.0(H) 0 - 4 /HPF LAB URINALYSIS - AUTOMATED METHOD 04/06/2025 1:25 PM [facility] WBC, Urine 160.8(H) 0 - 4 /HPF LAB URINALYSIS - AUTOMATED METHOD 04/06/2025 1:25 PM [facility] Squamous Epithelial, Urine 40 0 - 60 /LPF LAB URINALYSIS - AUTOMATED METHOD 04/06/2025 1:25 PM [facility] Bacteria, Urine Negative Negative /HPF LAB URINALYSIS - AUTOMATED METHOD 04/06/2025 1:25 PM [facility] Hyaline Casts, Urine 3.0 0 - 3 /LPF LAB URINALYSIS - AUTOMATED METHOD 04/06/2025 1:25 PM [facility] Urine Urine specimen obtained by clean catch procedure / Unknown Non-blood Collection / Unknown 04/06/2025 12:29 PM EDT 04/06/2025 12:48 PM EDT us Tor YOUNG LAB URINE ORDERABLES Final R esult [facility] [address] [place] [address], * US Retroperitoneal Limited (04/06/2025 12:18 PM EDT) Anatomical Region Laterality Modality Body Ultrasound 04/06/2025 2:14 PM EDT Impressions 04/06/2025 2:16 PM EDT Bilateral nephrolithiasis. Fullness of the left renal collecting system without overt hydronephrosis (stent not visualized). -------- FINAL REPORT -------- Dictated By: Chuck Perkins Dictated Date: 04/06/2025 14:14 ET Assigned Physician: Chuck Perkins Reviewed and Electronically Signed By: Chuck Perkins Signed Date: 04/06/2025 14:16 ET Workstation ID: [id number] Transcribed By: Self Edit Transcribed Date: 04/06/2025 14:14 ET Narrative 04/06/2025 2:16 PM EDT PROCEDURE: US RETROPERITONEAL LIMITED INDICATION: pain Had previous hydronephrosis and stent placed on left, eval for obstruction. TECHNIQUE: 2-D grier scale, color Doppler imaging of the kidneys. COMPARISON: No priors available. FINDINGS: Right kidney: The right kidney is normal in size, shape, configuration, and echogenicity. There is no hydronephrosis. An obstructing calculus measuring 4 mm.. The right kidney measures 10.3cm. Left kidney: The left kidney is normal in size, shape, configuration, and echogenicity. Stent is not visualized. There is a stone in the renal pelvis measuring 1.3 cm and a 2nd stone in the interpolar region measuring 1 cm. Stent is not fully visualized. There is trace fullness of the left renal collecting system without overt hydronephrosis. Nephrolithiasis. The left kidney measures 11.1cm. Unremarkable urinary bladder. Procedure Note Chuck Perkins MD - 04/06/2025 PROCEDURE: US RETROPERITONEAL LIMITED INDICATION: pain Had previous hydronephrosis and stent placed on left, eval forobstruction. TECHNIQUE: 2-D grier scale, color Doppler imaging of the kidneys. COMPARISON: No priors available. FINDINGS: Right kidney: The right kidney is normal in size, shape, configuration,and echogenicity. There is no hydronephrosis. An obstructing calculusmeasuring 4 mm.. The right kidney measures 10.3cm. Left kidney: The left kidney is normal in size, shape, configuration, andechogenicity. Stent is not visualized. There is a stone in the renalpelvis measuring 1.3 cm and a 2nd stone in the interpolar region measuring1 cm. Stent is not fully visualized. There is trace fullness of the leftrenal collecting system without overt hydronephrosis. Nephrolithiasis.The left kidney measures 11.1cm. Unremarkable urinary bladder. IMPRESSION: Bilateral nephrolithiasis. Fullness of the left renal collecting systemwithout overt hydronephrosis (stent not visualized). -------- FINAL REPORT -------- Dictated By: Chuck Perkins Dictated Date: 04/06/2025 14:14 ET Assigned Physician: Chuck Perkins Reviewed and Electronically Signed By: Chuck Perkins Signed Date: 04/06/2025 14:16 ET Workstation ID: [id number] Transcribed By: Self Edit Transcribed Date: 04/06/2025 14:14 ET us Tor YOUNG IMG US PROCEDURES Final Resu lt * (ABNORMAL) CBC auto differential (04/06/2025 11:46 AM EDT) WBC 7.2 4.8 - 10.8 K/mcL LAB HEMETOLOGY METHOD 04/06/2025 12:28 PM EDT [facility] RBC 4.60 3.80 - 4.80 M/mcL LAB HEMETOLOGY METHOD 04/06/2025 12:28 PM EDT [facility] Hemoglobin 11.9 11.5 - 16.0 g/dL LAB HEMETOLOGY METHOD 04/06/2025 12:28 PM [facility] Hematocrit 38.2 35.0 - 47.0 % LAB HEMETOLOGY METHOD 04/06/2025 12:28 PM [facility] MCV 83.0 79.0 - 98.0 FL LAB HEMETOLOGY METHOD 04/06/2025 12:28 PM EDT [facility] MCH 25.9(L) 27.0 - 32.0 pcg LAB HEMETOLOGY METHOD [facility] MCHC 31.2(L) 32.0 - 37.0 g/dL LAB HEMETOLOGY METHOD 04/06[facility]2025 12[facility]28 [facility] RDW 17.9(H) 11.0 - 15.0 % LAB HEMETOLOGY METHOD 04/06/2025 12:28 [facility] Platelets 568(H) 130 - 400 K/mcL LAB HEMETOLOGY METHOD 04/06/2025 [facility] MPV 8.1 7.0 - 11.0 FL LAB HEMETOLOGY METHOD 04/06/2025 12:28 [facility] NRBC 0.0 <1.0 % LAB HEMETOLOGY METHOD 04/06/2025 12:28 [facility] NRBC Absolute 0.00 <0.10 K/mcL LAB HEMETOLOGY METHOD 04/06/2025 12:28 [facility] Neutrophils Relative 52.6 % LAB HEMETOLOGY METHOD 04/06/2025 12:28 PM [facility] Lymphocytes Relative 32.5 % LAB HEMETOLOGY METHOD 04/06/2025 12:28 [facility] Monocytes Relative 9.3 % LAB HEMETOLOGY METHOD 04/06/2025 12:28 [facility] Eosinophils Relative 4.2 % LAB HEMETOLOGY METHOD 04/06/2025 12:28 PM [facility] Basophils Relative 1.1 % LAB HEMETOLOGY METHOD 04/06/2025 12:28 PM [facility] Immature Granulocytes Relative 0.3 % LAB HEMETOLOGY METHOD 04/06/2025 12:28 PM EDT [facility] Neutrophils Absolute 3.78 1.50 - 7.00 K/mcL LAB HEMETOLOGY METHOD 04/06/2025 12:28 PM EDT [facility] Lymphocytes Absolute 2.34 1.00 - 5.00 K/mcL LAB HEMETOLOGY METHOD 04/06/2025 12:28 PM EDT [facility] Monocytes Absolute 0.67 0.20 - 1.00 K/mcL LAB HEMETOLOGY METHOD 04/06/2025 12:28 PM EDT [facility] Eosinophils Absolute 0.30 0.00 - 0.50 K/mcL LAB HEMETOLOGY METHOD 04/06/2025 12:28 PM EDT [facility] Basophils Absolute 0.08 0.00 - 0.20 K/mcL LAB HEMETOLOGY METHOD 04/06/2025 12:28 PM EDT [facility] Immature Granulocytes Absolute 0.02 0.00 - 0.03 K/mcL LAB HEMETOLOGY METHOD 04/06/2025 12:28 PM EDT [facility] Blood Venous blood specimen / Unknown Venipuncture / Unknown 04/06/2025 11:46 AM EDT 04/06/2025 12:08 PM EDT us Tor YOUNG LAB BLOOD ORDERABLES Final R esult [facility] [address] [place] [address], * (ABNORMAL) Comprehensive metabolic panel (04/06/2025 11:46 AM EDT) Sodium 138 133 - 145 mmol/L LAB CHEMISTRY METHOD 04/06/2025 12:43 PM EDT [facility] Potassium 4.5 3.5 - 5.5 mmol/L LAB CHEMISTRY METHOD 04/06/2025 12:43 PM [facility] Chloride 105 96 - 110 mmol/L LAB CHEMISTRY METHOD 04/06/2025 12:43 PM [facility] CO2 25 21 - 32 mmol/L LAB CHEMISTRY METHOD 04/06/2025 12:43 PM [facility] Anion Gap 8 3 - 11 LAB CHEMISTRY METHOD 04/06/2025 12:43 PM [facility] Glucose 99 70 - 100 mg/dL LAB CHEMISTRY METHOD 04/06/2025 12:43 PM [facility] BUN 6 5 - 25 mg/dL LAB CHEMISTRY METHOD 04/06/2025 12:43 PM [facility] Creatinine 0.72 0.50 - 1.10 mg/dL LAB CHEMISTRY METHOD 04/06/2025 12:43 PM [facility] eGFR 98 >=60 mL/min/1. 73m2 LAB CHEMISTRY METHOD 04/06/2025 12:43 PM [facility] Comment:Calculation based on the Chronic Kidney Disease Epidemiology Collaboration (CKD-EPI) equation refit without adjustment for race. BUN/Creatinine Ratio 8.3 LAB CHEMISTRY METHOD 04/06/2025 12:43 PM [facility] Calcium 10.9(H) 8.5 - 10.5 mg/dL LAB CHEMISTRY METHOD 04/06/2025 12:43 PM [facility] AST (SGOT) 28 10 - 42 unit/L LAB CHEMISTRY METHOD 04/06/2025 12:43 PM [facility] ALT (SGPT) 41 10 - 60 unit/L LAB CHEMISTRY METHOD 04/06/2025 12:43 PM [facility] Alkaline Phosphatase 130(H) 42 - 121 unit/L LAB CHEMISTRY METHOD 04/06/2025 12:43 PM [facility] Total Protein 7.3 6.0 - 8.0 g/dL LAB CHEMISTRY METHOD 04/06/2025 12:43 PM EDT [facility] Albumin 3.6 3.2 - 5.0 g/dL LAB CHEMISTRY METHOD 04/06/2025 12:43 PM EDT [facility] Total Bilirubin 0.3 0.0 - 1.4 mg/dL LAB CHEMISTRY METHOD 04/06/2025 12:43 PM EDT [facility] Blood Venous blood specimen / Unknown Venipuncture / Unknown 04/06/2025 11:46 AM EDT 04/06/2025 12:09 PM EDT us [employer] [facility] LAB BLOOD ORDERABLES Final R esult [facility] [address] [place] [address], [place] [phone] documented in this encounter Visit Diagnoses Diagnosis Left flank pain- Primary Abdominal pain, unspecified site documented in this encounter Administered Medications Inactive Administered Medications - up to 3 most recent administrations Medication Order MAR Action Action Date Dose Rate Site oxyCODONE (ROXICODONE) immediate release tablet 5 mg 5 mg, oral, Every 6 hours PRN, severe pain, Starting on Yary 04/06/25 at 1138, For 1 dose Given 04/06/2025 12:21 PM EDT 5 mg documented in this encounter Active and Recently Administered Medications Times are shown in EDT. PRN Medication Order 04/04/2025 04/05/2025 04/06/2025 oxyCODONE (ROXICODONE) immediate release tablet 5 mg (COMPLETED) 5 mg, oral, Every 6 hours PRN, severe pain, Starting on Yary 04/06/25 at 1138, For 1 dose 1221 (Given - Provid er: Nehemias Brumfield RN) documented in this encounter Orders Medications Ordered That Pancho ht Not Have Been Administered Count Last Ordered Date First Ordered Date oxyCODONE (ROXICODONE) immed iate release tablet 5 mg 1 04/06/2025 documented in this encounter Additional Health Concerns Active Problems Noted Date Diagnosed Date Autogenerated Problem 03/19/2025 documented as of this encounter Care Teams Parts Order And Stock Clerk Relationship Specialty Start Date End Date Asuncion Contreras NP [address] [place] [phone] PCP - General Nurse Practitioner 03/24/22 documented as of this encounter
--- OUTSIDE RECORDS SUMMARY | 2025-04-07 10:15 | XMS_ITS | Encounter Summary ---
Author Organization [employer] Address [address] [facility] 7t [place] [address] Care Team Providers Care Cable Television Installer Name Role Phone Asuncion Contreras Primary Care Provider [phone] Reason for Referral * Imaging (STAT) - Pending Review Specialty Diagnoses / Procedures Referred By Dimitris schneider Referred To Contact Radiology Diagnoses Dysarthria Procedures MR Brain w/o Contrast Vanna Pandey MD [address] [place] [phone] Phone: tel: fax: [facility] [address] [place] [address], [address] [place] [address] Phone: tel: fax: Referral ID Status Reason Start Date Expiration Date V isits Requested Visits Authorized [id number] Pending Review 04/07/2025 04/07/2026 1 1 Encounter Details Date Type Department Care Team ([facility] st Contact Info) Description 04/07/2025 10:15 AM EDT Office Visit [facility] MEDICINE [address] [place] [address] [phone] Vanna Pandey MD [address] [place] [address] Dysarthria (Primary Dx); Pruritus; Dysuria; Nausea Social History Tobacco Use Types Packs/Day Years [...] Sign Reading Time Taken Comments Blood Pressure 126/82 04/07/2025 10:38 AM EDT Pulse 100 04/07/2025 10:38 AM EDT Temperature 36.3 C (97.3 F) 04/07/2025 10:38 AM EDT Respiratory Rate 20 04/07/2025 10:38 AM EDT Oxygen Saturation 99% 04/07/2025 10:38 AM EDT Inhaled Oxygen Concentration - - Weight 76.2 kg (168 lb) 04/07/2025 10:38 AM EDT Height 162.6 cm (5' 4 ) 04/07/2025 10:38 AM EDT Body Mass Index 28.84 04/07/2025 10:38 AM EDT documented in this encounter Plan of Treatment Upcoming Encounters Date Type Department Care Team (Late st Contact Info) Description 05/25/2025 11:00 AM EST Office Visit [facility] MEDICINE [address] [place] [address] Asuncion Contreras ANP [address] [place] [address] Scheduled Orders Name Type Priority Associated Diagnoses Orde r Schedule CBC auto differential Lab Routine Pruritus Expected: 04/07/2025 (Approximate), Expires: 04/07/2026 Comprehensive Metabolic Panel Lab Routine Pruritus Expected: 04/07/2025 (Approximate), Expires: 04/07/2026 Calcium, Ionized Lab Routine Pruritus Expected: 04/07/2025 (Approximate), Expires: 04/07/2026 MR Brain w/o Contrast Imaging STAT Dysarthria Expected: 04/07/2025, Expires: 04/07/2026 Culture, Urine, Routine Microbiology Routine Dysuria Expected: 04/07/2025 (Approximate), Expires: 04/07/2026 documented as of this encounter Visit Diagnoses Diagnosis Dysarthria- Primary Pruritus Unspecified pruritic disorder Dysuria Nausea Nausea alone documented in this encounter Additional Health Concerns Assessment Noted Time PHQ-9 Depression Total Score: 9 09/27/19 25 4:02 PM EDT documented as of this encounter Care Teams Cable Television Installer Relationship Specialty Start Date End Date Asuncion Contreras ANP [address] [place] [phone] PCP - General Family Medicine 12/12/19 [employer] 02/01/24 documented as of this encounter
--- OUTSIDE RECORDS SUMMARY | 2025-04-07 18:29 | XMS_ITS | Clinical Summary ---
Author Organization [facility] Address [address] [place] [address] Care Team Providers Care Refrigeration Manager Name Role Phone Asuncion Contreras LOREE Primary Care Provider [phone] Allergies Active Allergy Reactions Criticality Noted Date [...] 70 03/18/2024 3:00 PM EDT Temperature 36.4 C (97.6 F) 03/18/2024 3:00 PM EDT Respiratory Rate - - Oxygen Saturation 97% [...] series) 08/06/2021 07/09/2021, 11/08/2020 Influenza Vaccine (#1) 2025 , 07/06/2020, 04/14/2016, Additional history exists DTap / Tdap / Td (2 - Td or Tdap) 07/06/2030 07/06/2020 RSV Ped < 20 months Aged Out No longe r eligible based on patient's age to complete this topic Care Teams Refrigeration Manager Relationship Specialty Start Date End Date Asuncion Contreras NP [address] [place] [address] PCP - General Nurse Practitioner 03/24/22
--- OUTSIDE RECORDS SUMMARY | 2025-04-07 18:30 | XMS_ITS | Encounter Summary ---
Author Organization [employer] Address [address] [facility] 7t [place] [address] Care Team Providers Care Financial Services Director Name Role Phone Asuncion Contreras Primary Care Provider [phone] Reason for Visit * Reason Comments Med Refill Encounter Details Date Type Department Care Team ([facility] st Contact Info) Description 04/03/2025 Refill [facility] MEDICINE [address] [place], [place] [phone] Asuncion Contreras ANP [address] [place] [address] Chronic GERD Social History Tobacco Use Types Packs/Day Years [...] Description 05/25/2025 11:00 AM EST Office Visit [facility] MEDICINE [address] [place] [phone] Asuncion Contreras ANP [address] [place] [phone] documented as of this encounter Visit Diagnoses Diagnosis Chronic GERD documented in this encounter Additional Health Concerns Assessment Noted Time PHQ-9 Depression Total Score: 9 09/27/19 25 4:02 PM EDT documented as of this encounter Care Teams Financial Services Director Relationship Specialty Start Date End Date Asuncion Contreras ANP [address] [place] [phone] PCP - General Family Medicine 12/12/19 [employer] 02/01/24 documented as of this encounter
--- OUTSIDE RECORDS SUMMARY | 2025-04-07 18:30 | XMS_ITS ---
[facility] Name [facility] Unknown History of Medication Use Medication Directions Dispensed Refills Start Date End Date Stat cefpodoxime (VANTIN) 200 mg tablet Take 1 tablet (200 mg total) by mouth 2 (two) times a day for 5 days. 03/24/2025 03/30/2025 active polyethylene glycol (MIRALAX) 17 gram packet Take 17 g by mouth 1 (one) time each day if needed for constipation. 03/24/2025 active vancomycin 1,000 mg in sodium chloride 0.9 % 250 mL IVPB Infuse 1,000 mg into a venous catheter every 12 (twelve) hours for 10 days. 03/24/2025 active QUEtiapine (SEROquel) 25 mg tablet Take 1 tablet (25 mg total) by mouth 1 (one) time each day. 03/09/2025 active hydrOXYzine pamoate (VISTARIL) 25 mg capsule Take 1 capsule (25 mg total) by mouth 1 (one) time each day if needed for itching. 02/28/2025 active CertaVite Senior tablet Take 1 tablet by mouth 1 (one) time each day. 02/22/2025 active exemestane (AROMASIN) 25 mg tablet Take 1 tablet (25 mg total) by mouth 1 (one) time each day 01/31/2025 active tamsulosin (FLOMAX) 0.4 mg 24 hr capsule Take 1 capsule (0.4 mg total) by mouth 1 (one) time each day. 01/28/2024 active apixaban (ELIQUIS) 5 mg tablet TAKE 1 TABLET (5 MG) BY MOUTH IN THE MORNING AND AT BEDTIME. 10/20/2023 active metoprolol succinate (TOPROL-XL) 50 mg 24 hr tablet Take 1 tablet (50 mg total) by mouth 1 (one) time each day. 07/08/2023 active senna-docusate (PERICOLACE) 8.6-50 mg per tablet TAKE 2 TABLETS BY MOUTH EVERY DAY FOR CONSTIPATION 07/08/2023 active gabapentin (NEURONTIN) 300 mg capsule TAKE 2 CAPSULES BY MOUTH THREE TIMES EVERY DAY 07/11/2022 active lamoTRIgine (LaMICtal) 150 mg tablet Take 2 tablets (300 mg total) by mouth 1 (one) time each day. 07/09/2022 active QUEtiapine (SEROquel) 300 mg tablet Take 1 tablet (300 mg total) by mouth 1 (one) time each day. 07/09/2022 active naltrexone (DEPADE) 50 mg tablet TAKE 1 TABLET BY MOUTH ONCE A DAY 06/30/2022 active perphenazine 4 mg tablet TAKE 1 TABLET BY MOUTH DAILY AND 2 TABLET BY MOUTH DAILY AT BEDTIME 06/30/2022 active traZODone (DESYREL) 100 mg tablet Take 2 tablets (200 mg total) by mouth at bedtime. 03/27/2022 active cholecalciferol (VITAMIN D-3) 10 mcg (400 unit) tablet TAKE 1 TABLET ONCE DAILY 04/04/2021 active omeprazole (PriLOSEC) [address] capsule Take 1 capsule (20 mg total) by mouth 2 (two) times a day. 12/11/2011 active acetaminophen (TYLENOL) 500 mg tablet Take 1 tablet (500 mg total) by mouth every 8 (eight) hours if needed for mild pain. active diphenhydrAMINE (BENADRYL) 50 mg capsule Take 1 capsule (50 mg total) by mouth at bedtime as needed for itching. 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 (CMS/HCC V24, [facility] V28) active 2017-11-15 ProblemAct [facility] Cocaine dependence ([facility] V24, [facility] V28) active 2011-12-11 ProblemAct [facility] Migraine headache active 2022-06-04 ProblemAct [facility] Sepsis secondary to UTI ([facility] V24, [facility] V28) active 2025-03-19 ProblemAct [facility] Cervical stenosis of spine active 2023-10-27 ProblemAct [facility] Depressive disorder active 2022-06-04 ProblemAct [facility] Peripheral visual field defect active 2017-11-23 ProblemAct [facility] Cerebrovascular accident (CVA) ([facility] V24, [facility] V28) active 2022-06-04 ProblemAct [facility] Chronic elbow pain, left active 2023-02-20 ProblemAct [facility] 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 active 2023-02-20 ProblemAct [facility] Asthma active 2022-06-04 ProblemAct [facility] Malignant neoplasm of breast ([facility] V24, [facility] V28) active 2022-06-04 ProblemAct [facility] Presbyopia active 2017-11-23 ProblemAct [facility] Weakness of left side of body active 2022-09-12 ProblemAct [facility] Bursitis of left elbow active 2022-03-23 ProblemAct [facility] Tendinitis of foot active 2022-06-04 ProblemAct [facility] Lower urinary tract infectious disease active 2013-01-11 ProblemAct [facility] N Anemia active 2025-03-19 ProblemAct [facility] Bipolar II disorder ([facility] V24, [facility] V28) active 2011-12-11 ProblemAct [facility] Pulmonary embolism ([facility] V24, [facility] V28) active 2022-06-04 ProblemAct [facility] Immunizations Vaccine Date Source Lot Number Status Influenza Quadrivalent, 0.5m l, preservative free (Fluarix; FluLaval; Fluzone) ages 6mo and older (Afluria) 3yo and older 04/29/2022 [facility] [id number] completed Influenza trivalent, 0.5mL, preservative free (Fluarix; FluLaval; Fluzone) ages 6mo and older (Afluria) 3 years and older 04/29/2022 [facility] [id number] completed Td Tetanus diptheria (Tdvax) 7yo and older 04/29/2022 [facility]_ [facility] [id number] completed Tdap Tetanus diptheria acell ular pertussis (Boostrix; Adacel) 7yo and older 04/29/2022 [facility] [id number] completed [employer] SARS-CoV-2 COVID -19, vector-nr, [id number], preservative free 11/08/2020 [facility] [id number] completed Influenza Quadrivalent, 0.5m l, preservative free (Fluarix; FluLaval; Fluzone) ages 6mo and older (Afluria) 3yo and older 07/06/2020 [id number] completed Influenza trivalent, 0.5mL, preservative free (Fluarix; FluLaval; Fluzone) ages 6mo and older (Afluria) 3 years and older 07/06/2020 [facility] [id number] completed Tdap Tetanus diptheria acell ular pertussis (Boostrix; Adacel) 7yo and older 07/06/2020 [facility] [id number] completed Influenza Quadrivalent, with preservative (Fluzone; Afluria) 6mo and older 04/14/2016 [facility] [id number] completed Influenza trivalent, 0.5mL, preservative free (Fluarix; FluLaval; Fluzone) ages 6mo and older (Afluria) 3 years and older 04/14/2016 [facility] [id number] completed Influenza trivalent, with pr eservative (Fluzone; Afluria) 6mo and older 03/21/2014 [facility] [id number] completed Influenza Split 03/15/2013 [facility] [id number] completed Influenza trivalent, 0.5mL, preservative free (Fluarix; FluLaval; Fluzone) ages 6mo and older (Afluria) 3 years and older 03/15/2013 [facility] [id number] completed
--- OUTSIDE RECORDS SUMMARY | 2025-04-07 18:30 | XMS_ITS | Encounter Summary ---
Author Organization [employer] [facility] Address [address] [place] [address] 7t [place] [address] Care Team Providers Care Emu Farm Worker Name Role Phone Asunicon Contreras Primary Care Provider [phone] Reason for Visit * Reason Comments Med Refill Encounter Details Date Type Department Care Team (Late st Contact Info) Description 08/24/[address] [facility] MEDICINE [address] [place] [phone] Asuncion Contreras ANP [address] [place] [address] History of pulmonary embolism Social History Tobacco [...] Description 05/25/2025 11:00 AM EST Office Visit [facility] MEDICINE [address] [place] [phone] Asuncion Contreras ANP [address] [place] [address] documented as of this encounter Visit Diagnoses Diagnosis History of pulmonary embolism Personal history of venous thrombosis and embolism documented in this encounter Care Teams Emu Farm Worker Relationship Specialty Start Date End Date Asuncion Contreras ANP [address] [place] [phone] PCP - General Family Medicine 12/12/19 [employer] 02/01/24 documented as of this encounter
--- OUTSIDE RECORDS SUMMARY | 2025-04-07 18:30 | XMS_ITS | Encounter Summary ---
Author Organization [employer] Address [address] [place] [address] 7t [place] [address] Care Team Providers Care Hoeing Row Boss Name Role Phone Asuncion Contreras Primary Care Provider [phone] Encounter Details Date Type Department Care Team ([facility] Contact Info) Description 04/08/2023 Orders Only [facility] MED & PEDS [address] [place], [place] [phone] Arjun Samson MD [address] [place] [address] Social History Tobacco Use Types Packs/Day Years [...] Encounters Date Type Department Care Team (Late Contact Info) Description 05/25/2025 11:00 AM EST Office Visit [facility] MEDICINE [address] [place] [address] Asuncion Contreras ANP [address] [place] [address] documented as of this encounter Visit Diagnoses Not on filedocumented in this encounter Care Teams Hoeing Row Boss Relationship Specialty Start Date End Date Asuncion Contreras ANP [address] [place] [address] PCP - General Family Medicine 12/12/19 [employer] 02/01/24 documented as of this encounter
--- OUTSIDE RECORDS SUMMARY | 2025-04-07 18:30 | XMS_ITS | Encounter Summary ---
Author Organization [employer] Address [address] [facility] 7t [place] [address] Care Team Providers Care Tile Layer Supervisor Name Role Phone Asuncion Contreras Primary Care Provider [phone] Encounter Details Date Type Department Care Team (Late st Contact Info) Description 04/06/2025 Telephone [facility] MEDICINE [address] [place], [place] [phone] Michelle Pantoja PharmD [address] [place], [place] [phone] Social History Tobacco Use Types Packs/Day Years [...] encounter Miscellaneous Notes * Telephone Encounter - Michelle Pantoja PharmD - 04/06/2025 11:56 AM EDT FYI - Patient currently at [facility], unsure if they will be able to make tomorrows appointment. Askedto contact office later today if they think they are unable to. documented in this encounter Plan of Treatment Upcoming Encounters Date Type Department Care Team (Late st Contact Info) Description 05/25/2025 11:00 AM EST Office Visit [facility] MEDICINE [address] [place] [address] Asuncion Contreras ANP [address] [place] [address] documented as of this encounter Visit Diagnoses Not on filedocumented in this encounter Additional Health Concerns Assessment Noted Time PHQ-9 Depression Total Score: 9 09/27/19 25 4:02 PM EDT documented as of this encounter Care Teams Tile Layer Supervisor Relationship Specialty Start Date End Date Asuncion Contreras ANP [address] [place] [phone] PCP - General Family Medicine 12/12/19 [employer] 02/01/24 documented as of this encounter
--- OUTSIDE RECORDS SUMMARY | 2025-04-07 18:30 | XMS_ITS | Encounter Summary ---
Author Organization [employer] Address [address] [facility] 7t [place] [address] Care Team Providers Care Concrete Mixer Operator Name Role Phone Asuncion Contreras Primary Care Provider [phone] Encounter Details Date Type Department Care Team (Late st Contact Info) Description 09/29/2023 Orders Only [facility] MEDICINE [address] [place], [place] [phone] Asuncion Contreras ANP [address] [place], [place] [phone] Social History Tobacco Use Types Packs/Day Years [...] Description 05/25/2025 11:00 AM EST Office Visit [facility] MEDICINE [address] [place] [phone] Asuncion Contreras ANP [address] [place] [address] documented as of this encounter Visit Diagnoses Not on filedocumented in this encounter Additional Health Concerns Assessment Noted Time PHQ-9 Depression Total Score: 0 09/25/19 24 3:01 PM EDT documented as of this encounter Care Teams Concrete Mixer Operator Relationship Specialty Start Date End Date Asuncion Contreras ANP [address] [place] [address] PCP - General Family Medicine 12/12/19 [employer] 02/01/24 documented as of this encounter
--- OUTSIDE RECORDS SUMMARY | 2025-04-07 18:30 | XMS_ITS | Encounter Summary ---
Author Organization [employer] Address [address] [facility] [address] [place] [address] Care Team Providers Care Refrigeration Engineering Teacher Name Role Phone Asuncion Contreras Primary Care Provider [phone] Reason for Visit * Reason Onset Date Comments chart prep 04/06/2025 Encounter Details Date Type Department Care Team ([facility] st Contact Info) Description 04/06/2025 Telephone [facility] [address] [place], [place] [phone] Asuncion Contreras ANP [address] [place], [place] [phone] chart prep Social History Tobacco Use Types Packs/Day Years [...] encounter Miscellaneous Notes * Telephone Encounter - Rola Stratton [place] - 04/06/2025 11:12 AM EDT Chart Prep Labs: done Images: done Referrals: complete GI Notes requested By TONNY via fax Vaccines due: Flu, Hep B, and Zoster Screenings: colonoscopy Overdue care gaps: SBIRT and Disability screen documented in this encounter Plan of Treatment Upcoming Encounters Date Type Department Care Team (Late st Contact Info) Description 05/25/2025 11:00 AM EST Office Visit [facility] [address] [place] [phone] Asuncion Contreras ANP [address] [place] [phone] documented as of this encounter Visit Diagnoses Not on filedocumented in this encounter Additional Health Concerns Assessment Noted Time PHQ-9 Depression Total Score: 9 09/27/19 25 4:02 PM EDT documented as of this encounter Care Teams Refrigeration Engineering Teacher Relationship Specialty Start Date End Date Asuncion Contreras ANP [address] [place] [id number] PCP - General Family Medicine 12/12/19 [employer] 02/01/24 documented as of this encounter
--- OUTSIDE RECORDS SUMMARY | 2025-04-07 18:30 | XMS_ITS | Clinical Summary ---
Author Organization [facility] Address [address] [place] [address] Phone Care Team Providers Care Development Team Lead Name Role Phone Asuncion Contreras NP Primary Care Provider [phone] Allergies Active Allergy Reactions Criticality Noted Date Comments Bupropion Rash 01/10/2025 Penicillins 01/10/2025 Tolerates ceftriaxone ([facility] 03/19/25) Medications apixaban (ELIQUIS) 5 mg tablet TAKE 1 TABLET (5 MG) BY MOUTH IN THE MORNING AND AT BEDTIME. 10/20/19 24 Active cholecalcifero l (VITAMIN D-3) 10 mcg (400 unit) tablet TAKE 1 TABLET ONCE DAILY 04/04/20 21 Active gabapentin (NEURONTIN) 300 mg capsule TAKE 2 CAPSULES BY MOUTH THREE TIMES EVERY DAY 07/11/19 23 Active lamoTRIgine (LaMICtal) 150 mg tablet Take 2 tablets (300 mg total) by mouth 1 (one) time each day. 07/09/19 23 Active metoprolol succinate (TOPROL-XL) 50 mg 24 hr tablet Take 1 tablet (50 mg total) by mouth 1 (one) time each day. 07/08/19 24 Active naltrexone (DEPADE) 50 mg tablet TAKE 1 TABLET BY MOUTH ONCE A DAY 06/30/19 23 Active omeprazole (PriLOSEC) [address] capsule Take 1 capsule (20 mg total) by mouth 2 (two) times a day. 12/11/19 12 Active perphenazine 4 mg tablet TAKE 1 TABLET BY MOUTH DAILY AND 2 TABLET BY MOUTH DAILY AT BEDTIME 06/30/19 23 Active QUEtiapine (SEROquel) 300 mg tablet Take 1 tablet (300 mg total) by mouth 1 (one) time each day. 07/09/19 23 Active senna-docusate (PERICOLACE) 8.6-50 mg per tablet TAKE 2 TABLETS BY MOUTH EVERY DAY FOR CONSTIPATION 07/08/19 24 Active traZODone (DESYREL) 100 mg tablet Take 2 tablets (200 mg total) by mouth at bedtime. 03/27/20 22 Active tamsulosin (FLOMAX) 0.4 mg 24 hr capsule Take 1 capsule (0.4 mg total) by mouth 1 (one) time each day. 01/28/20 24 Active acetaminophen (TYLENOL) 500 mg tablet Take 1 tablet (500 mg total) by mouth every 8 (eight) hours if needed for mild pain. Active diphenhydrAMIN E (BENADRYL) 50 mg capsule Take 1 capsule (50 mg total) by mouth at bedtime as needed for itching. Active exemestane (AROMASIN) 25 mg tablet Take 1 tablet (25 mg total) by mouth 1 (one) time each day 90 tablet 02/01/20 25 Active QUEtiapine (SEROquel) 25 mg tablet Take 1 tablet (25 mg total) by mouth 1 (one) time each day. 03/09/20 25 Active CertaVite Senior tablet Take 1 tablet by mouth 1 (one) time each day. 02/23/20 25 Active hydrOXYzine pamoate (VISTARIL) 25 mg capsule Take 1 capsule (25 mg total) by mouth 1 (one) time each day if needed for itching. 02/29/20 25 Active polyethylene glycol (MIRALAX) 17 gram packet Take 17 g by mouth 1 (one) time each day if needed for constipation. 51 g 03/24/20 25 025 Active oxyCODONE (ROXICODONE) 5 mg immediate release tabletIndicati ons:Left flank pain Take 1 tablet (5 mg total) by mouth every 6 (six) hours if needed for severe pain. Max Daily Amount: 20 mg 10 tablet 04/06/20 25 Active geriatric multivit-iron- mins tablet Take 1 Tablet by mouth daily. 10/02/19 025 Discontinued acitretin (SORIATANE) 25 mg capsule Take 1 Capsule by mouth. 01/31/20 Discontinued albuterol HFA (PROAIR HFA ; PROVENTIL HFA ; VENTOLIN HFA) 90 mcg/actuation inhaler Inhale 2 Puffs into the lungs. 09/13/19 Discontinued apremilast 30 mg tablet Take 30 mg by mouth. Discontinued HYDROcodone-ac etaminophen (NORCO) 5-325 mg per tablet 04/14/20 Discontinued betamethasone valerate (VALISONE) 0.1 % ointment Apply topically 2 (two) times a day. Discontinued ketoconazole (NIZORAL) 2 % shampoo Apply topically 2 (two) times a week. Apply to damp skin, lather, leave on 5 minutes, and rinse Discontinued polyethylene glycol (Golytely) 236-22.74-6.74 -5.86 gram solution Take 4L by mouth once for one dose. May substitue any PEG. Starting at 2PM the day before your procedure drink 1 8oz glasses at your own pace until you complete half of the gallon. Finish 2nd half of the gallon at 8PM. 4000 mL 03/16/20 Discontinued bisacodyL (DULCOLAX) 5 mg EC tablet Take 2 tablets by mouth right before beginning bowel prep. See instructions provided by the office 2 tablet 03/16/20 Discontinued vancomycin 1,000 mg in sodium chloride 0.9 % 250 mL IVPB Infuse 1,000 mg into a venous catheter every 12 (twelve) hours for 10 days. 03/24/20 25 cefpodoxime (VANTIN) 200 mg tablet Take 1 tablet (200 mg total) by mouth 2 (two) times a day for 5 days. 10 each 03/24/20 25 oxyCODONE (OXY-IR) 5 mg immediate release capsule Take 1 capsule (5 mg total) by mouth 3 (three) times a day if needed for severe pain for up to 3 days. Max Daily Amount: 15 mg 9 capsule 03/24/20 25 025 phenazopyridin e (PYRIDIUM) 95 mg tablet Take 2 tablets (190 mg total) by mouth 3 (three) times a day after meals for 3 days. 18 tablet 04/03/20 25 025 Active Problems Problem Noted Date Diagnosed Date Sepsis secondary to UTI ([facility] V24, [facility] V2 8) 03/19/2025 Anemia 03/19/2025 HTN (hypertension) 04/26/2024 Cervical stenosis of spine 10/27/2023 Overview (04/18/2024): Last Assessment & Plan: Patient comes in for cervical stenosis. She has history of a stroke 2010 that left her with left LE >UE hemiparesis, I looked through years of notes in [facility] records, PT eval October 2022 and [...] history of infection in June was at [facility] and [facility], on antibiotics. Patient went for her first outpatient PT visit yesterday at [facility]. Dr. Fernandez's note mentions that she falls twice a month, no injuries with the fall. Patient states her COPD is in good control, no diabetes, no recent drug or alcohol use, no history of NC, liver or kidney disease. Ms. Glover had C-spine MRI 07/21/2023 at [facility] with findings of C3-4 right paracentral [...] to help with balance. She has a RN NEW GRADUATE that comes in the mornings at 6 [...] requested nurse staff for referral. -Referred to [facility] PT rehab for motorized wheelchair evaluation, requested by . -Request nurse staff for shower chair requested by . -Due to new reported diplopia for the past 2 wk, referred today for brain MRI and to vp design. -I called today her neurologist Dr. Mao - who informed that pt has not been following for a long time. -MA today will help w scheduling apt for neurologist. -Advised to f up w PCP in the next 3-4 wk. Weakness of left side of body 09/12/2022 Asthma 06/04/2022 Cerebrovascular accident (CVA) ([facility] V24, [facility] V28) 06/04/2022 Depressive disorder 06/04/2022 Gastroesophageal reflux disease 06/04/2022 Malignant neoplasm of breast ([facility] V24, [facility] V28) 06/04/2022 Migraine headache 06/04/2022 Pulmonary embolism ([facility] V24, [facility] V28) Tendinitis of foot 06/04/2022 Bursitis of left elbow 03/23/2022 Immature cataract 11/23/2017 Peripheral visual field defect 11/23/2017 Presbyopia 11/23/2017 Visual impairment 11/23/2017 Cancer of right breast metas tatic to brain ([facility] V24, [facility] V28) 11/15/2017 Lower urinary tract infectious disease 3 Bipolar II disorder ([facility] V24, [facility] V28) 0 12/11/2011 Cocaine dependence ([facility] V24, [facility] V28) Encounters Date Type Department Care Team Description 04/06/2025 10:49 AM EDT - 04/06/2025 3:45 PM EDT Emergency [facility] Emergency [address] [place] [phone] Left flank pain (Primary Dx) Discharge Disposition: Home or Self Care 04/03/2025 1:44 PM EDT - 04/03/2025 7:41 PM EDT Emergency [facility] Emergency [address] [place] [phone] Kilo Mccullough MD Urinary tract infection associated with catheterization of urinary tract, unspecified indwelling urinary catheter type, initial encounter ([facility] V24) (Primary Dx) Discharge Disposition: Home or Self Care 03/29/2025 Telephone Infectious Disease - [address] [place] [phone] Yuli Camacho RN 03/26/2025 2:45 PM EDT - 03/26/2025 7:59 PM EDT Emergency [facility] Emergency [address] [place] [phone] Tierney Jain MD Fall, initial encounter (Primary Dx); Intraparenchymal hematoma of brain without loss of consciousness, unspecified laterality, initial encounter ([facility] V24, [facility] V28) Discharge Disposition: Another Health Care Institution Not Defined 03/20/2025 Telephone [facility] Hematology Oncology [address] [place] [phone] Senait Henriquez MA 03/19/2025 8:57 PM EDT Anesthesia Event [facility] Main OR [address] [place] [phone] Janny Ga MD 03/19/2025 8:10 PM EDT - 03/19/2025 9:00 PM EDT Surgery [facility] Main OR [address] [place] [phone] Austen Harvey MD CYSTOSCOPY INSERT STENT URETER LEFT 03/19/2025 3:27 PM EDT - 03/24/2025 4:10 PM EDT Hospital Encounter [facility] Medical Surgical Unit [address] [place] [phone] Mateo Orosco MD Wire, Jessica, MD Jones, Christopher, MD Surendran, Anupama, MD Levrault, Richard, DO Seralathan, Manikandan, MD Fever, unspecified fever cause (Primary Dx); Left ureteral calculus; Cystitis; Shock (CMS/HCC V24, CMS/HCC V28); Sepsis secondary to UTI (CMS/HCC V24, [facility] V28) Discharge Disposition: Home-Health Care [facility] 01/30/2025 Telephone Neurosurgery [facility] [address] [facility] [address] [place] [phone] [facility] [place] [place] 01/19/2025 3:05 PM EDT - 01/19/2025 11:59 PM EDT Hospital Encounter [facility] Ultrasound [address] [place] [phone] Malignant neoplasm of breast metastatic to brain, unspecified laterality (CMS/HCC V24, CMS/HCC V28); Mass of upper outer quadrant of left breast Discharge Disposition: Home or Self Care 01/19/2025 2:21 PM EDT - 01/19/2025 11:59 PM EDT Hospital [facility] [address] [phone] Malignant neoplasm of breast metastatic to brain, unspecified laterality (CMS/HCC V24, CMS/HCC V28); Mass of upper outer quadrant of left breast Discharge Disposition: Home or Self Care 01/09/2025 Telephone Gastroenterology [facility] 175 [facility] [address] [facility] [address] [place] [phone] Adelina Massey MD 01/05/2025 4:10 PM EDT - 01/05/2025 11:59 PM EDT Hospital Encounter [facility] MRI [address] [place] [phone] Malignant neoplasm of breast metastatic to brain, unspecified laterality ([facility] V24, [facility] V28) Discharge Disposition: Home or Self Care from Last 3 Months Immunizations Immunization Administration Dates Next Due Influenza Quadrivalent, 0.5m l, preservative free (Fluarix; FluLaval; Fluzone) ages 6mo and older (Afluria) 3yo and older 04/29/2022,07/06/2020 Influenza Quadrivalent, with preservative (Fluzone; Afluria) 6mo and older 04/14/2016 Influenza Split 03/15/2013 Influenza trivalent, 0.5mL, preservative free (Fluarix; FluLaval; Fluzone) ages 6mo and older (Afluria) 3 years and older 04/29/2022,07/06/2020,04/14/2016,2012 Influenza trivalent, with preservative (Fluzone; Afluria) 6mo and older 03/21/2014 [employer]) SARS-CoV-2 COVID -19, vector-nr, rS-Ad26, preservative free 11/08/2020 Td Tetanus diptheria (Tdvax) 7yo and older 04/29/2022 Tdap Tetanus diptheria acell ular pertussis (Boostrix; Adacel) 7yo and older 04/29/2022,07/06/2020 Surgical History Surgery Date Site/Laterality Comments NECK SURGERY 04/14/2024 C5-6, C6-7 ACDF, /Colleen OTHER SURGICAL HISTORY 06/22/2008 - 06/21/2009 Right frontotemporal craniotomy resection of metastatic lesion, Dr. Leger, [facility] OTHER SURGICAL HISTORY left breast lumpectomy/reconstruction with removal of lymph nodes OTHER SURGICAL HISTORY Left arm ORIF surgery OTHER SURGICAL HISTORY IVC filter placement, history of PE and DVT Medical History Medical History Date Comments Stroke ([facility] V24, [facility] V28) DX:Stroke (HCC) Breast cancer metastasized to brain ([facility] V24 , [facility] V28) Cervical spinal stenosis Peripheral neuropathy due to chemotherapy ([facility] V24) GERD (gastroesophageal reflux disease) Hypertension Pulmonary embolism ([facility] V24, [facility] V28) Bipolar disorder ([facility] V24, [facility] V28) Family History Medical History Relation Name Comments Stroke Father Hypertension Mother Relation Name Status Comments Father Mother Social History Tobacco Use Types Packs/Day Years [...] for your loved ones. For example, child welfare specialist or elderly care for an older adult? [...] 06/23/2024 3: 08 PM EST Obstetrics History Para Term AB IAB SAB Ectopic Multiple Livin g Live Births 3 Last Filed Vital Signs Vital Sign Reading [...] Mass Index 28.49 04/06/2025 11:09 AM EDT Plan of Treatment Health Maintenance Due Date Last Done Comments Colorectal Cancer Screening: Colonoscopy 1968 Hepatitis B Vaccines (1 of 3 - 19+ 3-dose series) 1987 Zoster Vaccines (1 of 2) 1987 Cervical Cancer Screening: Pap Smear 1989 RSV Immunization Adult Patients (1 - Risk 50-74 years 1-dose series) 2018 Medicare Annual Wellness Visit 05/30/2022 Depression Screening 06/22/2024 Influenza Vaccine (#1) 2025 , 04/29/2022, 07/06/2020, Additional history exists COVID-19 Vaccine ( - season) 2025 09/26/2024, 07/09/2021, 11/08/2020 Social Influencers of Health Screening 03/19/2026 03/19/2025 Hypertension/CHF/CAD Annual BMP Blood Test 04/06/2026 04/06/2025, 03/26/2025, 03/24/2025, Additional history exists Breast Cancer Screening 01/19/2027 01/19/2025, 10/30 Cholesterol Screening (Lipid Panel) 04/29/2027 04/29/2022, 03/18/2021 DTaP,Tdap,and Td Vaccines (4 - Td or Tdap) 04/29/2032 04/29/2022, 04/29/2022, 07/06/2020 Osteoporosis Screening (Bone Density Screening) 11/16/2034 11/16/2024 HIV Screening Completed 01/21/2021, 01/21/2021 Hepatitis C Screening Completed 01/21/2021 Pneumococcal Vaccine: 50+ Years Completed 09/26/2024 HIB Vaccines Aged Out No [...] on patient's age to complete this topic Goals Goal Patient Goal Type Associated Problems Recent Progress Patient-Stated? Author Autogenerat ed Goal Care Plan Autogenerated Problem No Brenda Martinez RN Medical Devices Implanted Type Area Customer Engineer Device Identifier Shelf Expiration Date Model / Serial / Lot Stent Uret Stretch Vl 7fr 22-3 - Sn/A - [id number] Implanted:Qty: 1 on 03/19/2025 by Austen Harvey MD at [facility] Stents Left: Ureter [employer] Y 12/15/2027 [id number] / N/A / [id number] Description:No string Procedures Procedure Name Priority Date/Time Associated Diagnosis Comments GRIER URINE CULTURE TUBE STAT 04/06/2025 12:32 PM EDT URINALYSIS WITH REFLEX MICROSCOPIC AND CULTURE STAT 04/06/2025 12:32 PM EDT URINALYSIS WITH REFLEX MICROSCOPIC STAT 04/06/2025 12:29 PM EDT URINALYSIS WITH REFLEX MICROSCOPIC STAT 04/06/2025 12:29 PM EDT US RETROPERITONEAL LIMITED STAT 04/06/2025 12:18 PM EDT CBC WITH AUTO DIFFERENTIAL STAT 04/06/2025 11:46 AM EDT COMPREHENSIVE METABOLIC PANEL STAT 04/06/2025 11:46 AM EDT CBC AND DIFFERENTIAL STAT 04/06/2025 11:46 AM EDT CBC WITH AUTO DIFFERENTIAL STAT 04/03/2025 4:23 PM EDT CBC AND DIFFERENTIAL STAT 04/03/2025 4:23 PM EDT GRIER URINE CULTURE TUBE STAT 04/03/2025 3:41 PM EDT URINALYSIS WITH REFLEX MICROSCOPIC AND CULTURE STAT 04/03/2025 3:41 PM EDT URINALYSIS WITH REFLEX MICROSCOPIC AND CULTURE STAT 04/03/2025 3:41 PM EDT CULTURE URINE STAT 04/03/2025 3:41 PM EDT HEPATIC FUNCTION PANEL STAT Add-on 3:39 PM EDT LACTATE, WITH REFLEX STAT 04/03/2025 3:39 PM EDT VENOUS BLOOD GAS STAT 04/03/2025 3:39 PM EDT PROCALCITONIN STAT 04/03/2025 3:39 PM EDT CULTURE BLOOD STAT 04/03/2025 3:[address] CHEST/ABDOMEN/PELVIS W CONTRAST STAT 03/26/2025 5:[address] CERVICAL SPINE WO CONTRAST STAT 03/26/2025 5:[address] HEAD WO CONTRAST STAT 03/26/2025 5 :11 PM EDT CBC WITH AUTO DIFFERENTIAL STAT 03/26/2025 4:10 PM EDT PROTHROMBIN TIME WITH INR STAT 03/26/2025 4:10 PM EDT COMPREHENSIVE METABOLIC PANEL STAT 03/26/2025 4:10 PM EDT LIPASE STAT 03/26/2025 4:10 PM EDT MAGNESIUM STAT 03/26/2025 4:10 PM EDT CBC AND DIFFERENTIAL STAT 03/26/2025 4:10 PM EDT XR CHEST 2 VIEWS STAT 03/26/2025 3:57 PM EDT XR SHOULDER 2+ VIEWS LEFT STAT 03/26/2025 3:57 PM EDT XR HUMERUS 2+ VIEWS LEFT STAT 03/26/2025 3:57 PM EDT CBC WITH AUTO DIFFERENTIAL Routine 03/24/2025 5:56 AM EDT CBC AND DIFFERENTIAL Routine 03/24/2025 5:56 AM EDT BASIC METABOLIC PANEL Routine 03/24/2025 5:56 AM EDT MAGNESIUM Routine 03/24/2025 5:56 AM EDT PHOSPHORUS Routine 03/24/2025 5:56 AM EDT PHOSPHORUS Routine 03/23/2025 10:00 AM EDT MAGNESIUM Routine 03/23/2025 10:00 AM EDT BASIC METABOLIC PANEL Routine 03/23/2025 10:00 AM EDT VANCOMYCIN, TROUGH Timed 03/23/2025 10 :00 AM EDT VANCOMYCIN, TROUGH Timed 03/21/2025 8: 00 PM EDT CULTURE BLOOD STAT 03/21/2025 8:40 AM EDT CULTURE BLOOD STAT 03/21/2025 7:50 AM EDT CBC WITH AUTO DIFFERENTIAL Routine 03/21/2025 4:01 AM EDT BASIC METABOLIC PANEL Routine 03/21/2025 4:01 AM EDT CBC AND DIFFERENTIAL Routine 03/21/2025 4:01 AM EDT PROCALCITONIN Routine 03/21/2025 4:01 AM EDT PHOSPHORUS Routine 03/21/2025 4:01 AM EDT MAGNESIUM Routine 03/21/2025 4:01 AM EDT CALCIUM, IONIZED Routine 03/21/2025 4:01 AM EDT LACTATE Routine 03/20/2025 4:14 PM EDT COMPLETE BLOOD COUNT Routine 03/20/2025 4:14 PM EDT TRANSFUSE RED BLOOD CELLS Routine 03/20/2025 2:32 PM EDT TROPONIN I HIGH SENSITIVITY Routine 03/20/2025 2:[address] CHEST/ABDOMEN/PELVIS WO CONTRAST STAT 03/20/2025 1:57 PM EDT ECG 12-LEAD Routine 03/20/2025 1:42 PM EDT PREPARE RBC Routine 03/20/2025 12:51 PM EDT CBC WITH AUTO DIFFERENTIAL Routine 03/20/2025 11:33 AM EDT LACTATE Routine 03/20/2025 11:33 AM EDT CBC AND DIFFERENTIAL Routine 03/20/2025 11:33 AM EDT PHOSPHORUS Routine 03/20/2025 11:33 AM EDT MAGNESIUM Routine 03/20/2025 11:33 AM EDT CALCIUM, IONIZED Routine 03/20/2025 11:3 3 AM EDT BASIC METABOLIC PANEL Routine 03/20/2025 11:33 AM EDT MRSA PCR Routine 03/20/2025 11:33 AM EDT TRANSFUSE RED BLOOD CELLS Routine 03/20/2025 9:05 AM EDT TRANSTHORACIC ECHOCARDIOGRAM (TTE) COMPLETE W/ CONTRAST Routine 03/20/2025 8:30 AM EDT Shock (CMS/HCC V24, CMS/HCC V28) TYPE AND SCREEN STAT 03/20/2025 5:36 AM EDT PREPARE RBC Routine 03/20/2025 5:15 AM EDT PHOSPHORUS Add-On 03/20/2025 3:49 AM EDT CORTISOL Add-On 03/20/2025 3:49 AM EDT THYROID STIMULATING HORMONE WITH REFLEX TO FREE T4 AND FREE T3 Add-On 03/20/2025 3:49 AM EDT PROCALCITONIN Add-On 03/20/2025 3:49 AM EDT TREPONEMA PALLIDUM ANTIBODY WITH REFLEX TO RPR AND PARTICLE AGGLUTINATION Add-On 03/20/2025 3:49 AM EDT FOLATE Add-On 03/20/2025 3:49 AM EDT VITAMIN B12 Add-On 03/20/2025 3:49 AM EDT MAGNESIUM Add-On 03/20/2025 3:49 AM EDT LACTATE STAT 03/20/2025 3:49 AM EDT CBC WITH AUTO DIFFERENTIAL STAT 03/20/2025 3:49 AM EDT CBC AND DIFFERENTIAL Routine 03/20/2025 3:49 AM EDT BASIC METABOLIC PANEL Routine 03/20/2025 3:49 AM EDT POCT GLUCOSE BLOOD Routine 03/20/2025 3: 42 AM EDT ECG ANNOTATED 03/20/2025 OXYGEN THERAPY, ADULT Routine 03/19/2025 9:44 PM EDT OXYGEN THERAPY, ADULT Routine 03/19/2025 9:44 PM EDT XR UROGRAM RETROGRADE Routine 03/19/2025 9:26 PM EDT CULTURE URINE Routine 03/19/2025 9:18 PM EDT Left ureteral calculus TH AN LMA(NO CHARGE) Routine 03/19/2025 9:13 PM EDT CYSTOSCOPY INSERT STENT URETER 03/19/2025 8:57 PM EDT Calculus of ureter BLOOD CULTURE PATHOGENS BY PCR Routine 03/19/2025 8:00 PM EDT CULTURE BLOOD STAT 03/19/2025 8:00 PM EDT CULTURE BLOOD STAT 03/19/2025 8:[address] ABDOMEN PELVIS W CONTRAST STAT 03/19/2025 5:56 PM EDT ECG 12-LEAD STAT 03/19/2025 5:27 PM EDT GRIER URINE CULTURE TUBE STAT 03/19/2025 4:45 PM EDT URINALYSIS WITH REFLEX MICROSCOPIC AND CULTURE STAT 03/19/2025 4:45 PM EDT URINALYSIS WITH REFLEX MICROSCOPIC AND CULTURE STAT 03/19/2025 4:45 PM EDT CULTURE URINE STAT 03/19/2025 4:45 PM EDT VITAMIN B12 AND FOLATE Add-On 4:14 PM EDT RETICULOCYTE COUNT Add-On 03/19/2025 4: 14 PM EDT IRON AND TIBC Add-On 03/19/2025 4:14 PM EDT CBC WITH AUTO DIFFERENTIAL STAT 03/19/2025 4:14 PM EDT BASIC METABOLIC PANEL STAT 03/19/2025 4:14 PM EDT CBC AND DIFFERENTIAL STAT 03/19/2025 4:14 PM EDT HEPATIC FUNCTION PANEL STAT 5 4:14 PM EDT LIPASE STAT 03/19/2025 4:14 PM EDT LACTATE, WITH REFLEX STAT 03/19/2025 4:14 PM EDT US BREAST LIMITED LEFT STAT 5 3:41 PM EDT Malignant neoplasm of breast metastatic to brain, unspecified laterality (CMS/HCC V24, CMS/HCC V28) Mass of upper outer quadrant of left breast MG MAMMO DIGITAL DIAGNOSTIC W TERRY BILAT STAT 01/19/2025 3:26 PM EDT Malignant neoplasm of breast metastatic to brain, unspecified laterality (CMS/HCC V24, CMS/HCC V28) Mass of upper outer quadrant of left breast MR BRAIN WO AND W CONTRAST Routine 01/05/2025 6:04 PM EDT Malignant neoplasm of breast metastatic to brain, unspecified laterality (CMS/HCC V24, CMS/HCC V28) BD BONE DENSITY DXA AXIAL SKELETON Routine 11/16/2024 1:38 PM EDT Malignant neoplasm of breast metastatic to brain, unspecified laterality (CMS/HCC V24, CMS/HCC V28) LIPID PANEL Routine 03/18/2021 HEPATITIS C SCREENING Routine 01/21/2021 HIV SCREENING Routine 01/21/2021 from Last 3 Months or Most Recently Relevant to Health Maintenance Results * Grier urine culture tube (04/06/2025 12:32 PM EDT) Only the most recent of3 resultswithin the time period is included. Extra Tube Hold for add-ons. 04/06/2025 2:01 PM EDT [facility] Comment:Auto resulted. Urine Urine specimen obtained by clean catch procedure / Unknown Non-blood Collection / Unknown 04/06/2025 12:32 PM EDT 04/06/2025 12:48 PM EDT us [facility] LAB URINE ORDERABLES Final R esult [facility] [address] [place] [address], [place] [phone] * (ABNORMAL) Urinalysis with reflex microscopic (04/06/2025 12:29 PM EDT) [facility] Specific [place] Urine 1.020 1.003 - 1.030 LAB URINALYSIS - AUTOMATED METHOD 04/06/2025 1:25 PM [facility] pH, Urine 7.0 5.0 - 8.0 pH LAB URINALYSIS - AUTOMATED METHOD 04/06/2025 1:25 PM [facility] Leukocytes, Urine Large(A) Negative LAB URINALYSIS - AUTOMATED METHOD 04/06/2025 1:25 PM [facility] Nitrite, Urine Negative Negative LAB URINALYSIS - AUTOMATED METHOD 04/06/2025 1:25 PM [facility] Protein, Urine >=1000(A) <=Trace mg/dL LAB URINALYSIS - AUTOMATED METHOD 04/06/2025 1:25 PM [facility] Glucose, Urine Negative Negative mg/dL LAB URINALYSIS - AUTOMATED METHOD 04/06/2025 1:25 PM [facility] Ketones, Urine Trace(A) Negative mg/dL LAB URINALYSIS - AUTOMATED METHOD 04/06/2025 1:25 PM [facility] Urobilinogen , Urine 1.0 0.2 - 1.0 mg/dL LAB URINALYSIS - AUTOMATED METHOD 04/06/2025 1:25 PM EDT [facility] Bilirubin, Urine Negative Negative LAB URINALYSIS - AUTOMATED METHOD 04/06/2025 1:25 PM EDT [facility] Blood, Urine Large(A) Negative LAB URINALYSIS - AUTOMATED METHOD 04/06/2025 1:25 PM EDT [facility] RBC, Urine 1,334.0(H) 0 - 4 /HPF LAB URINALYSIS - AUTOMATED METHOD 04/06/2025 1:25 PM EDT [facility] WBC, Urine 160.8(H) 0 - 4 /HPF LAB URINALYSIS - AUTOMATED METHOD 04/06/2025 1:25 PM EDT [facility] Squamous Epithelial, Urine 40 0 - 60 /LPF LAB URINALYSIS - AUTOMATED METHOD 04/06/2025 1:25 PM EDT [facility] Bacteria, Urine Negative Negative /HPF LAB URINALYSIS - AUTOMATED METHOD 04/06/2025 1:25 PM EDT [facility] Hyaline Casts, Urine 3.0 0 - 3 /LPF LAB URINALYSIS - AUTOMATED METHOD 04/06/2025 1:25 PM T [facility] Urine Urine specimen obtained by clean catch procedure / Unknown Non-blood Collection / Unknown 04/06/2025 12:29 PM EDT 04/06/2025 12:48 PM EDT us Tor YOUNG LAB URINE ORDERABLES Final R esult [facility] [address] [place] [address], * [place] Retroperitoneal Limited (04/06/2025 12:18 PM [...] Signed Date: 04/06/2025 14:16 ET Workstation ID: [id number] Transcribed By: Self Edit Transcribed Date: 04/06/2025 [...] Signed Date: 04/06/2025 14:16 ET Workstation ID: [id number] Transcribed By: Self Edit Transcribed Date: 04/06/2025 14:14 ET us Tor YOUNG IMG US PROCEDURES Final Resu lt * (ABNORMAL) CBC auto differential (04/06/2025 11:46 AM EDT) Only the most recent of8 resultswithin the time period is included. WBC 7.2 4.8 - 10.8 K/mcL LAB HEMETOLOGY METHOD 04/06[facility]2025 [facility] RBC 4.60 3.80 - 4.80 M/mcL LAB HEMETOLOGY METHOD 04/06/2025 12:28 [facility] Hemoglobin 11.9 11.5 - 16.0 g/dL LAB HEMETOLOGY METHOD 04/06/2025 12:28 PM [facility] Hematocrit 38.2 35.0 - 47.0 % LAB HEMETOLOGY METHOD 04/06/2025 12:28 PM [facility] MCV 83.0 79.0 - 98.0 FL LAB HEMETOLOGY METHOD 04/06/2025 12:28 PM [facility] MCH 25.9(L) 27.0 - 32.0 pcg LAB HEMETOLOGY METHOD 04/06/2025 12:28 PM [facility] MCHC 31.2(L) 32.0 - 37.0 g/dL LAB HEMETOLOGY METHOD 04/06/2025 12:28 [facility] RDW 17.9(H) 11.0 - 15.0 % LAB HEMETOLOGY METHOD 04/06/2025 12:28 PM [facility] Platelets 568(H) 130 - 400 K/mcL LAB HEMETOLOGY METHOD 04/06/2025 12:28 [facility] MPV 8.1 7.0 - 11.0 FL LAB HEMETOLOGY METHOD 04/06/2025 12:28 PM [facility] NRBC 0.0 <1.0 % LAB HEMETOLOGY METHOD 04/06/2025 12:28 PM [facility] NRBC Absolute 0.00 <0.10 K/mcL LAB HEMETOLOGY METHOD 04/06/2025 12:28 PM [facility] Neutrophils Relative 52.6 % LAB HEMETOLOGY METHOD 04/06/2025 12:28 PM [facility] Lymphocytes Relative 32.5 % LAB HEMETOLOGY METHOD 04/06/2025 12:28 PM [facility] Monocytes Relative 9.3 % LAB HEMETOLOGY METHOD 04/06/2025 12:28 PM [facility] Eosinophils Relative 4.2 % LAB HEMETOLOGY METHOD 04/06/2025 12:28 PM [facility] Basophils Relative 1.1 % LAB HEMETOLOGY METHOD 04/06/2025 12:28 PM [facility] Immature Granulocytes Relative 0.3 % LAB HEMETOLOGY METHOD 04/06/2025 12:28 PM [facility] Neutrophils Absolute 3.78 1.50 - 7.00 K/mcL LAB HEMETOLOGY METHOD 04/06/2025 12:28 PM [facility] Lymphocytes Absolute 2.34 1.00 - 5.00 K/mcL LAB HEMETOLOGY METHOD 04/06/2025 12:28 PM EDT [facility] Monocytes Absolute 0.67 0.20 - 1.00 K/mcL LAB HEMETOLOGY METHOD 04/06/2025 12:28 PM EDT [facility] Eosinophils Absolute 0.30 0.00 - 0.50 K/mcL LAB HEMETOLOGY METHOD 04/06/2025 12:28 PM EDT [facility] Basophils Absolute 0.08 0.00 - 0.20 K/[facility] LAB HEMETOLOGY METHOD 04/06/2025 12:28 PM EDT [facility] Immature Granulocytes Absolute 0.02 0.00 - 0.03 K/mcL LAB HEMETOLOGY METHOD 04/06/2025 12:28 PM EDT [facility] Blood Venous blood specimen / Unknown Venipuncture / Unknown 04/06/2025 11:46 AM EDT 04/06/2025 12:08 PM EDT us Tor YOUNG LAB BLOOD ORDERABLES Final R esult [facility] [address] [place] [address], * (ABNORMAL) Comprehensive metabolic panel (04/06/2025 11:46 AM EDT) Only the most recent of2 resultswithin the time period is included. Sodium 138 133 - 145 mmol/L LAB CHEMISTRY METHOD 04/06/2025 12:43 PM EDT [facility] Potassium 4.5 3.5 - 5.5 mmol/L LAB CHEMISTRY METHOD 04/06/2025 12:43 [facility] Chloride 105 96 - 110 mmol/L LAB CHEMISTRY METHOD 04/06/2025 12:43 PM T [facility] CO2 25 21 - 32 mmol/L LAB CHEMISTRY METHOD 04/06/2025 12:43 PM [facility] Anion Gap 8 3 - 11 LAB CHEMISTRY METHOD 04/06/2025 12:43 PM [facility] Glucose 99 70 - 100 mg/dL LAB CHEMISTRY METHOD 04/06/2025 12:43 PM [facility] BUN 6 5 - 25 mg/dL LAB CHEMISTRY METHOD 04/06/2025 12:43 PM [facility] Creatinine 0.72 0.50 - 1.10 mg/dL LAB CHEMISTRY METHOD 04/06/2025 12:43 PM [facility] eGFR 98 >=60 mL/min/1. 73m2 LAB CHEMISTRY METHOD 04/06/2025 12:43 PM [facility] Comment:Calculation based on the Chronic Kidney Disease Epidemiology Collaboration (CKD-EPI) equation refit without adjustment for race. BUN/Creatinine Ratio 8.3 LAB CHEMISTRY METHOD 04/06/2025 12:43 PM [facility] Calcium 10.9(H) 8.5 - 10.5 mg/dL LAB CHEMISTRY METHOD 04/06/2025 12:43 PM [facility] AST (SGOT) 28 10 - 42 unit/L LAB CHEMISTRY METHOD 04/06/2025 12:43 PM [facility] ALT (SGPT) 41 10 - 60 unit/L LAB CHEMISTRY METHOD 04/06/2025 12:43 PM [facility] Alkaline Phosphatase 130(H) 42 - 121 unit/L LAB CHEMISTRY METHOD 04/06/2025 12:43 PM [facility] Total Protein 7.3 6.0 - 8.0 g/dL LAB CHEMISTRY METHOD 04/06/2025 12:43 PM [facility] Albumin 3.6 3.2 - 5.0 g/dL LAB CHEMISTRY METHOD 04/06/2025 12:43 PM [facility] Total Bilirubin 0.3 0.0 - 1.4 mg/dL LAB CHEMISTRY METHOD 04/06/2025 12:43 PM EDT [facility] Blood Venous blood specimen / Unknown Venipuncture / Unknown 04/06/2025 11:46 AM EDT 04/06/2025 12:09 PM EDT us Tor YOUNG LAB BLOOD ORDERABLES Final R esult [facility] [address] [place] [address], [place] [phone] * (ABNORMAL) Urinalysis with reflex microscopic and culture (04/03/2025 3:41 PM EDT) Only the most recent of2 resultswithin the time period is included. Specific [place] Urine 1.018 1.003 - 1.030 LAB URINALYSIS - AUTOMATED METHOD 04/03/2025 4:39 PM [facility] pH, Urine 7.0 5.0 - 8.0 pH LAB URINALYSIS - AUTOMATED METHOD 04/03/2025 4:39 PM [facility] Leukocytes, Urine Large(A) Negative LAB URINALYSIS - AUTOMATED METHOD 04/03/2025 4:39 PM [facility] Nitrite, Urine Negative Negative LAB URINALYSIS - AUTOMATED METHOD 04/03/2025 4:39 PM [facility] Protein, Urine 300(A) <=Trace mg/dL LAB URINALYSIS - AUTOMATED METHOD 04/03/2025 4:39 PM [facility] Glucose, Urine Negative Negative mg/dL LAB URINALYSIS - AUTOMATED METHOD 04/03/2025 4:39 PM [facility] Ketones, Urine Negative Negative mg/dL LAB URINALYSIS - AUTOMATED METHOD 04/03/2025 4:39 PM [facility] Urobilinogen , Urine 1.0 0.2 - 1.0 mg/dL LAB URINALYSIS - AUTOMATED METHOD 04/03/2025 4:39 PM EDT [facility] Bilirubin, Urine Negative Negative LAB URINALYSIS - AUTOMATED METHOD 04/03/2025 4:39 PM EDT [facility] Blood, Urine Large(A) Negative LAB URINALYSIS - AUTOMATED METHOD 04/03/2025 4:39 PM EDT [facility] RBC, Urine 1,126.1(H) 0 - 4 /HPF LAB URINALYSIS - AUTOMATED METHOD 04/03/2025 4:39 PM EDT [facility] WBC, Urine 229.3(H) 0 - 4 /HPF LAB URINALYSIS - AUTOMATED METHOD 04/03/2025 4:39 [facility] Squamous Epithelial, Urine 40 0 - 60 /LPF LAB URINALYSIS - AUTOMATED METHOD 04/03/2025 4:39 [facility] Bacteria, Urine Negative Negative /HPF LAB URINALYSIS - AUTOMATED METHOD 04/03/2025 4:39 PM EDT [facility] Hyaline Casts, Urine 5.3(H) 0 - 3 /LPF LAB URINALYSIS - AUTOMATED METHOD 04/03/2025 4:39 PM [facility] Urine Urine specimen obtained by clean catch procedure / Unknown Non-blood Collection / Unknown 04/03/2025 3:41 PM EDT 04/03/2025 3:46 PM EDT us Kilo Mccullough MD LAB URINE ORDERABLES Final R esult [facility] [address] [place] [address], * Culture urine (04/03/2025 3:41 PM EDT) Only the most recent of3 resultswithin the time period is included. Culture, Urine No growth 04/04/2025 8:39 AM EDT [facility] Urine Urine specimen obtained by clean catch procedure / Unknown Non-blood Collection / Unknown 04/03/2025 3:41 PM EDT 04/03/2025 4:39 PM EDT us Kilo Mccullough MD LAB MICROBIOLOGY - GENERAL O RDERABLES Final Result Performing Organization Address City/[facility]/ZIP Co de Phone Number [facility] [address] [place] [address], [place] [phone] * Lactate, with reflex (04/03/2025 3:39 PM EDT) Only the most recent of2 resultswithin the time period is included. Pathologist [facility] LACTIC ACID 1.0 0.4 - 2.0 mmol/L LAB CHEMISTRY METHOD 04/03/2025 4:29 PM EDT [facility] Blood Venous blood specimen / Unknown Venipuncture / Unknown 04/03/2025 3:39 PM EDT 04/03/2025 3:45 PM EDT us Kilo Mccullough MD LAB BLOOD ORDERABLES Final R esult Performing Organization Address City/[facility]/ZIP Co de Phone Number [facility] [address] [place] [address], [place] [phone] * Procalcitonin (04/03/2025 3:39 PM EDT) Only the most recent of3 resultswithin the time period is included. Procalcitonin 0.02 <=0.16 ng/mL LAB CHEMISTRY METHOD 04/04/2025 9:54 AM EDT [facility] Blood Venous blood specimen / Unknown Venipuncture / Unknown 04/03/2025 3:39 PM EDT 04/03/2025 3:45 PM EDT Narrative [facility] - 04/04/2025 9:54 AM EDT Procalcitonin [...] MD LAB BLOOD ORDERABLES Final R esult [facility] [address] [place] [address], * (ABNORMAL) Venous blood gas (04/03/2025 3:39 PM EDT) pH, Jose L 7.43(H) 7.32 - 7.42 pH 04/03/2025 3:53 PM EDT [facility] pCO2, Jose L 42 41 - 51 mmHg 04/03/2025 3:53 PM EDT [facility] pO2, Jose L 34 25 - 40 mmHg 04/03/2025 3:53 PM EDT [facility] HCO3, Venous 26.4(H) 22.0 - 26.0 mmol/L 04/03/2025 3:53 PM EDT [facility] O2 Sat, Jose L 55.4 % 04/03/2025 3:53 PM EDT [facility] Base Excess, Jose L 3.2(H) -2.0 - 2.0 mmol/L 04/03/2025 3:53 PM EDT [facility] Blood Venous blood specimen / Unknown Venipuncture / Unknown 04/03/2025 3:39 PM EDT 04/03/2025 3:44 PM EDT us Kilo Mccullough MD LAB BLOOD ORDERABLES Final R esult [facility] [address] [place] [address], [place] [phone] * (ABNORMAL) Hepatic function panel (04/03/2025 3:39 PM EDT) Only the most recent of2 resultswithin the time period is included. Total Protein 7.3 6.0 - 8.0 g/dL LAB CHEMISTRY METHOD 04/03/2025 4:33 [facility] Albumin 3.5 3.2 - 5.0 g/dL LAB CHEMISTRY METHOD 04/03/2025 4:33 PM [facility] Total Bilirubin 0.3 0.0 - 1.4 mg/dL LAB CHEMISTRY METHOD 04/03/2025 4:33 PM [facility] Bilirubin, Direct <0.1 0.0 - 0.3 mg/dL LAB CHEMISTRY METHOD 04/03/2025 4:33 PM [facility] Bilirubin, Indirect LAB CHEMISTRY METHOD 04/03/2025 4:33 PM [facility] Comment:Unable to calculate Indirect Bilirubin. ALT (SGPT) 38 10 - 60 unit/L LAB CHEMISTRY METHOD 04/03/2025 4:33 PM [facility] AST (SGOT) 18 10 - 42 unit/L LAB CHEMISTRY METHOD 04/03/2025 4:33 PM [facility] Alkaline Phosphatase 135(H) 42 - 121 unit/L LAB CHEMISTRY METHOD 04/03/2025 4:33 PM EDT [facility] Blood Venous blood specimen / Unknown Venipuncture / Unknown 04/03/2025 3:39 PM EDT 04/03/2025 3:45 PM EDT us Kilo Mccullough MD LAB BLOOD ORDERABLES Final R esult [facility] [address] [place] [address], [place] [phone] * CT Chest/Abdomen/Pelvis w Contrast (03/26/2025 5:11 PM EDT) Anatomical Region Laterality Modality Body Computed Tomogra phy 03/26/2025 6:10 PM EDT Impressions 03/26/2025 6:10 PM EDT 1. Suspect cystitis with left-sided ureteritis, should be correlated for infection. 2. Left nephroureteral stent in place with bilateral [id number] hydronephrosis and subcentimeter renal calculi. 3. No acute intrathoracic pathology. 4. Additional findings as described. This document has been electronically signed by: Clifford Phelan MD on 03/26/2025 18:10:47 Narrative 03/26/2025 6:10 PM EDT INDICATION: accidental fall CT chest, abdomen and pelvis with contrast Comparison: CT chest abdomen pelvis 03/20/2025 Findings: The heart is normal size. The visualized thyroid and mediastinum are unremarkable. Evidence of prior left mastectomy. Mild paraseptal emphysema. Atelectasis. No lobar consolidation. No significant pleural effusion or pneumothorax. Hepatomegaly with steatosis. Xxxy-ia-byzvpwpg bilateral hydronephrosis with subcentimeter renal calculi left larger than right. For example in the left midpole kidney clustered calculi measuring up to 5 mm each and in the right midpole kidney measuring up to 3 mm. There is urothelial wall thickening and enhancement noted throughout the left kidney. There is a left-sided nephroureteral stent proximally coiled in an upper pole calyx distally in the ureterovesicular junction of the bladder. No bowel obstruction, pneumoperitoneum, or pneumatosis. Stable position of the IVC filter. No evidence of appendicitis. Scattered colonic diverticulosis without diverticulitis or colitis. Snell catheter in the bladder partially decompressed with prominent mural thickening. Osteopenia with diffuse multilevel spondylosis. Partially imaged anterior cervical discectomy and fusion hardware. Redemonstrated deformity with sclerosis along the mid sternal body may reflect a healing fracture or pathologic fracture. Clinical correlation advised and/or follow-up nuclear medicine bone scan may be helpful to rule out bony metastases. Diffuse anasarca. Procedure Note Clifford Phelan MD - 03/26/2025 INDICATION: accidental fall CT chest, abdomen and pelvis with contrast Comparison: CT chest abdomen pelvis 03/20/2025 Findings: The heart is normal size. The visualized thyroid and mediastinum are unremarkable. Evidence of prior left mastectomy. Mild paraseptal emphysema. Atelectasis. No lobar consolidation. No significant pleural effusion or pneumothorax. Hepatomegaly with steatosis. Ehrn-ym-ocnatklf bilateral hydronephrosis with subcentimeter renalcalculi left larger than right. For example in the left midpole kidney clustered calculi measuring up to 5 mm each and in the right midpole kidney measuring up to 3 mm. There is urothelial wall thickening andenhancement noted throughout the left kidney. There is a left-sided nephroureteral stent proximally coiled in an upper pole calyx distally in the ureterovesicular junction of the bladder. No bowel obstruction, pneumoperitoneum, or pneumatosis. Stable position of the IVC filter. No evidence of appendicitis. Scattered colonic diverticulosis without diverticulitis or colitis. Snell catheter in the bladder partially decompressed with prominentmural thickening. Osteopenia with diffuse multilevel spondylosis. Partially imagedanterior cervical discectomy and fusion hardware. Redemonstrated deformity with sclerosis along the mid sternal body may reflect a healing fracture or pathologic fracture. Clinical correlation advised and/or follow-upnuclear medicine bone scan may be helpful to rule out bony metastases. Diffuse anasarca. IMPRESSION: 1. Suspect cystitis with left-sided ureteritis, should be correlated for infection. 2. Left nephroureteral stent in place with bilateral habl-yp-tveiqldy hydronephrosis and subcentimeter renal calculi. 3. No acute intrathoracic pathology. 4. Additional findings as described. This document has been electronically signed by: Clifford Phelan MD on 03/26/2025 18:10:47 Tierney Jain MD IMG CT PROCEDURES Final Result * CT Cervical Spine wo Contrast (03/26/2025 5:11 PM EDT) Anatomical Region Laterality Modality Spine, C-spine Computed Tomogra phy 03/26/2025 5:57 PM EDT Impressions 03/26/2025 5:57 PM EDT No acute findings. Additional findings as described. This document has been electronically signed by: Clifford Phelan MD on 03/26/2025 17:57:39 Narrative 03/26/2025 5:57 PM EDT INDICATION: Discitis, suspected or evaluation of CT cervical spine without contrast Comparison: CT/OT/MT/SR - CERVICAL SPINE C- CT - 02/26/24 15:17 EDT Findings: Reversal of the cervical lordosis. Osteopenia. Multilevel spondylosis with osteophytosis, uncovertebral hypertrophy, facet arthropathy and degenerative disc disease. Diffuse spinal canal narrowing, for example moderate to severe at C5-C6 with severe bilateral foraminal stenoses. Anterior cervical discectomy and fusion changes noted at C5-C7. Multinodular thyroid gland for example in the left measuring 1 cm. This may be further evaluated with ultrasound. No consolidation or effusion at the lung apices. Procedure Note Clifford Phelan MD - 03/26/2025 INDICATION: Discitis, suspected or evaluation of CT cervical spine without contrast Comparison: CT/OT/MT/SR - CERVICAL SPINE C- CT - 02/26/24 15:17 EDT Findings: Reversal of the cervical lordosis. Osteopenia. Multilevel spondylosis with osteophytosis, uncovertebral hypertrophy, facet arthropathy and degenerative disc disease. Diffuse spinal canal narrowing, for example moderate to severe at C5-C6 with severe bilateral foraminal stenoses. Anterior cervical discectomy and fusion changes noted at C5-C7. Multinodular thyroid gland for example in the left measuring 1 cm. This may be further evaluated with ultrasound. No consolidation or effusion at the lung apices. IMPRESSION: No acute findings. Additional findings as described. This document has been electronically signed by: Clifford Phelan MD on 03/26/2025 17:57:39 Tierney Jain MD IMG CT PROCEDURES Final Result * CT Head wo Contrast (03/26/2025 5:11 PM EDT) Anatomical Region Laterality Modality Head and Neck Computed Tomogra phy 03/26/2025 5:54 PM EDT Addenda Addendum by Clifford Phelan MD on 03/26/2025 6:03 PM EDT ADDENDUM: This report was discussed with VICKY HEBERT MD on Mar 26, 2025 18:02:00 EDT. This document has been electronically signed by: Elida Stone on 03/26/2025 18:03:14 Impressions 03/26/2025 5:54 PM EDT Tiny left frontal lobe intraparenchymal hematoma superimposed on chronic changes. This document has been electronically signed by: Clifford Phelan MD on 03/26/2025 17:54:53 Narrative 03/26/2025 5:54 PM EDT INDICATION: accidental fall CT head without contrast Comparison: CT/MT/SR - BRAIN C- CT - 04/09/23 12:29 EDT Findings: Motion and streak artifact limit evaluation. Punctate 3 mm hyperdense focus in the subcortical left frontal lobe white matter, suggesting a tiny intraparenchymal hemorrhage. Scattered subcortical and periventricular hypoattenuation, likely in keeping with chronic small vessel ischemic disease. Parenchymal volume loss with compensatory prominence of the ventricles and CSF spaces. No acute territorial infarction, midline shift or hydrocephalus. Encephalomalacia/gliosis in the right MCA territory along the mora radiata, insula and temporal lobe. Ex vacuo dilatation of the right lateral ventricle. Diffuse opacification throughout the paranasal sinuses pronounced in the left maxillary sinus with air-fluid level suggesting acute sinusitis. The orbits are unremarkable. Evidence of prior right-sided craniotomy changes. Procedure Note Clifford Phelan MD - 03/26/2025 INDICATION: accidental fall CT head without contrast Comparison: CT/MT/SR - BRAIN C- CT - 04/09/23 12:29 EDT Findings: Motion and streak artifact limit evaluation. Punctate 3 mm hyperdense focus in the subcortical left frontal lobewhite matter, suggesting a tiny intraparenchymal hemorrhage. Scattered subcortical and periventricular hypoattenuation, likely in keeping with chronic small vessel ischemic disease. Parenchymal volume loss with compensatory prominence of the ventricles and CSF spaces. No acute territorial infarction, midline shift or hydrocephalus. Encephalomalacia/gliosis in the right MCA territory along the mora radiata, insula and temporal lobe. Ex vacuo dilatation of the right lateral ventricle. Diffuse opacification throughout the paranasal sinuses pronounced in the left maxillary sinus with air-fluid level suggesting acute sinusitis. The orbits are unremarkable. Evidence of prior right-sided craniotomy changes. IMPRESSION: Tiny left frontal lobe intraparenchymal hematoma superimposed on chronic changes. This document has been electronically signed by: Clifford Phelan MD on 03/26/2025 17:54:53 us Tierney Jain MD IMG CT PROCEDURES Edited Resul t - Final * Protime-INR (03/26/2025 4:10 PM EDT) Protime 12.6 10.6 - 13.9 sec LAB COAGULATION METHOD 03/26/2025 4:32 PM EDT [facility] INR 1.0 LAB COAGULATION METHOD 03/26/2025 4:32 PM EDT [facility] Blood Venous blood specimen / Unknown Venipuncture / Unknown 03/26/2025 4:10 PM EDT 03/26/2025 4:19 PM EDT us Tierney Jain MD LAB BLOOD ORDERABLES Final Res ult [facility] [address] [place] [address], * (ABNORMAL) Magnesium (03/26/2025 4:10 PM EDT) Only the most recent of6 resultswithin the time period is included. Magnesium 1.8(L) 1.9 - 2.6 mg/dL LAB CHEMISTRY METHOD 03/26/2025 4:50 PM EDT [facility] Blood Venous blood specimen / Unknown Venipuncture / Unknown 03/26/2025 4:10 PM EDT 03/26/2025 4:19 PM EDT us Tierney Jain MD LAB BLOOD ORDERABLES Final Res ult Performing Organization Address [facility] Co de Phone Number [facility] [address] [place] [address], [place] [phone] * Lipase (03/26/2025 4:10 PM EDT) Only the most recent of2 resultswithin the time period is included. Lipase 13 13 - 75 unit/L LAB CHEMISTRY METHOD 03/26/2025 4:50 PM EDT [facility] Blood Venous blood specimen / Unknown Venipuncture / Unknown 03/26/2025 4:10 PM EDT 03/26/2025 4:19 PM EDT us Tierney Jain MD LAB BLOOD ORDERABLES Final Res ult Performing Organization Address [facility] de Phone Number [facility] [address] [place] [address], [place] [phone] * XR Humerus 2+ Views Left (03/26/2025 3:57 PM EDT) Anatomical Region Laterality Modality Upper Extremities, Humerus Left Radio graphic Imaging 03/26/2025 4:54 PM EDT Impressions 03/26/2025 4:54 PM EDT FINDINGS/IMPRESSION: Two views of the left humerus demonstrate extensive ORIF hardware of the distal humerus/elbow with extensive osteopenia at the elbow. There is no proximal humeral fracture evident. -------- FINAL REPORT -------- Dictated By: Chuck Perkins Dictated Date: 03/26/2025 16:54 ET Assigned Physician: Chuck Perkins Reviewed and Electronically Signed By: Chuck Perkins Signed Date: 03/26/2025 16:54 ET Workstation ID: [id number] Transcribed By: Self Edit Transcribed Date: 03/26/2025 16:54 ET Narrative 03/26/2025 4:54 PM EDT XR HUMERUS 2+ VIEWS LEFT INDICATION: accidental fall TECHNIQUE: XR HUMERUS 2+ VIEWS LEFT COMPARISON: None Procedure Note Chuck Perkins MD - 03/26/2025 XR HUMERUS 2+ VIEWS LEFT INDICATION: accidental fall TECHNIQUE: XR HUMERUS 2+ VIEWS LEFT COMPARISON: None IMPRESSION: FINDINGS/IMPRESSION: Two views of the left humerus demonstrate extensiveORIF hardware of the distal humerus/elbow with extensive osteopenia at theelbow. There is no proximal humeral fracture evident. -------- FINAL REPORT -------- Dictated By: Chuck Perkins Dictated Date: 03/26/2025 16:54 ET Assigned Physician: Chuck Perkins Reviewed and Electronically Signed By: Chuck Perkins Signed Date: 03/26/2025 16:54 ET Workstation ID: [id number] Transcribed By: Self Edit Transcribed Date: 03/26/2025 16:54 ET us Tierney Jain MD IMG XR PROCEDURES Final Result * XR Shoulder 2+ Views Left (03/26/2025 3:57 PM EDT) Anatomical Region Laterality Modality Upper Extremities, Shoulder Left Radi ographic Imaging 03/26/2025 5:02 PM EDT Impressions 03/26/2025 5:03 PM EDT FINDINGS/IMPRESSION: Osteopenia and degenerative changes. No acute fracture. No dislocation. -------- FINAL REPORT -------- Dictated By: Chuck Perkins Dictated Date: 03/26/2025 17:02 ET Assigned Physician: Chuck Perkins Reviewed and Electronically Signed By: Chuck Perkins Signed Date: 03/26/2025 17:03 ET Workstation ID: [id number] Transcribed By: Self Edit Transcribed Date: 03/26/2025 17:02 ET Narrative 03/26/2025 5:03 PM EDT XR SHOULDER 2+ VIEWS LEFT INDICATION: accidental fall TECHNIQUE: XR SHOULDER 2+ VIEWS LEFT COMPARISON: None Procedure Note Chuck Perkins MD - 03/26/2025 XR SHOULDER 2+ VIEWS LEFT INDICATION: accidental fall TECHNIQUE: XR SHOULDER 2+ VIEWS LEFT COMPARISON: None IMPRESSION: FINDINGS/IMPRESSION: Osteopenia and degenerative changes. No acutefracture. No dislocation. -------- FINAL REPORT -------- Dictated By: Chuck Perkins Dictated Date: 03/26/2025 17:02 ET Assigned Physician: Chuck Perkins Reviewed and Electronically Signed By: Chuck Perkins Signed Date: 03/26/2025 17:03 ET Workstation ID: [id number] Transcribed By: Self Edit Transcribed Date: 03/26/2025 17:02 ET Tierney Jain MD IMG XR PROCEDURES Final Result * XR Chest 2 Views (03/26/2025 3:57 PM EDT) Anatomical Region Laterality Modality Body Radiographic Sarah ging 03/26/2025 5:00 PM EDT Impressions 03/26/2025 5:01 PM EDT FINDINGS/IMPRESSION: Right upper extremity PICC line terminating in the SVC. No consolidation or effusion. Normal heart size with nonspecific interstitial markings. Left axillary clips. Cervical fusion hardware. IVC filter and ureteral stent with stone noted.. -------- FINAL REPORT -------- Dictated By: Chuck Perkins Dictated Date: 03/26/2025 17:00 ET Assigned Physician: Chuck Perkins Reviewed and Electronically Signed By: Chuck Perkins Signed Date: 03/26/2025 17:01 ET Workstation ID: [id number] Transcribed By: Self Edit Transcribed Date: 03/26/2025 17:00 ET Narrative 03/26/2025 5:01 PM EDT XR CHEST 2 VIEWS INDICATION: picc line placement confirmation TECHNIQUE: XR CHEST 2 VIEWS COMPARISON: None Procedure Note Chuck Perkins MD - 03/26/2025 XR CHEST 2 VIEWS INDICATION: picc line placement confirmation TECHNIQUE: XR CHEST 2 VIEWS COMPARISON: None IMPRESSION: FINDINGS/IMPRESSION: Right upper extremity PICC line terminating in theSVC. No consolidation or effusion. Normal heart size with nonspecificinterstitial markings. Left axillary clips. Cervical fusion hardware.IVC filter and ureteral stent with stone noted.. -------- FINAL REPORT -------- Dictated By: Chuck Perkins Dictated Date: 03/26/2025 17:00 ET Assigned Physician: Chuck Perkins Reviewed and Electronically Signed By: Chuck Perkins Signed Date: 03/26/2025 17:01 ET Workstation ID: [id number] Transcribed By: Self Edit Transcribed Date: 03/26/2025 17:00 ET Tierney Jain MD IMG XR PROCEDURES Final Result * Phosphorus (03/24/2025 5:56 AM EDT) Only the most recent of5 resultswithin the time period is included. [facility] Phosphorus 3.1 2.5 - 4.5 mg/dL LAB CHEMISTRY METHOD 03/24/2025 7:19 AM EDT [facility] Blood Venous blood specimen / Unknown Venipuncture / Unknown 03/24/2025 5:56 AM EDT 03/24/2025 6:24 AM EDT Chuy Mcneal MD LAB BLOOD ORDERABLES Fi nal Result [facility] [address] [place] [address], [place] [phone] * Basic metabolic panel (03/24/2025 5:56 AM EDT) Only the most recent of6 resultswithin the time period is included. Pathologist [facility] Sodium 143 133 - 145 mmol/L LAB CHEMISTRY METHOD 03/24/2025 7:19 AM EDT [facility] Potassium 3.9 3.5 - 5.5 mmol/L LAB CHEMISTRY METHOD 03/24/2025 7:19 AM EDT [facility] Chloride 109 96 - 110 mmol/L LAB CHEMISTRY METHOD 03/24[facility]25 7[facility] CO2 29 21 - 32 mmol/L LAB CHEMISTRY METHOD 03/24/2025 7:19 AM [facility] Anion Gap 5 3 - 11 LAB CHEMISTRY METHOD 03/24/2025 7:19 AM [facility] Glucose 94 70 - 100 mg/dL LAB CHEMISTRY METHOD 03/24/2025 7:19 AM [facility] BUN 11 5 - 25 mg/dL LAB CHEMISTRY METHOD 03/24/2025 7:19 AM [facility] Creatinine 0.58 0.50 - 1.10 mg/dL LAB CHEMISTRY METHOD 03/24/2025 7:19 AM [facility] eGFR 106 >=60 mL/min/1. 73m2 LAB CHEMISTRY METHOD 03/24/2025 7:19 AM [facility] Comment:Calculation based on the Chronic Kidney Disease Epidemiology Collaboration (CKD-EPI) equation refit without adjustment for race. BUN/Creatinine Ratio 19.0 LAB CHEMISTRY METHOD 03/24/2025 7:19 AM [facility] Calcium 9.4 8.5 - 10.5 mg/dL LAB CHEMISTRY METHOD 03/24/2025 7:19 AM [facility] Blood Venous blood specimen / Unknown Venipuncture / Unknown 03/24/2025 5:56 AM EDT 03/24/2025 6:24 AM EDT Chuy Mcneal MD LAB BLOOD ORDERABLES Fi nal Result [facility] [address] [place] [address], * Vancomycin, trough Please draw before 1100 dose (03/23/2025 10:00 AM EDT) Only the most recent of2 resultswithin the time period is included. Vancomycin Trough 15.4 10.0 - 20.0 mcg/mL LAB CHEMISTRY METHOD 03/23/2025 11:28 AM EDT [facility] Blood Venous blood specimen / Unknown Venipuncture / Unknown 03/23/2025 10:00 AM EDT 03/23/2025 10:09 AM EDT Jayant Alan DO LAB BLOOD ORDERABLES Final R esult Performing Organization Address [facility] Co de Phone Number [facility] [address] [place] [address], [place] [phone] * Blood Culture, Peripheral Draw #1 (03/21/2025 8:40 AM EDT) Only the most recent of4 resultswithin the time period is included. Culture, Blood No growth at 5 days LAB MICROBIOLOGY METHOD 03/26/2025 9:01 AM EDT [facility] Blood Venous blood specimen / Unknown 03/21/2025 8:40 AM EDT 03/21/2025 8:57 AM EDT us Jayant Alan DO LAB MICROBIOLOGY - GENERAL O RDERABLES Final Result Performing Organization Address [facility] de Phone Number [facility] [address] [place] [address], [place] [phone] * Calcium, ionized (03/21/2025 4:01 AM EDT) Only the most recent of2 resultswithin the time period is included. Calcium Ionized 5.26 4.50 - 5.30 mg/dL 03/21/2025 4:18 AM EDT [facility] Blood Venous blood specimen / Unknown Existing Catheter / Unknown 03/21/2025 4:01 AM EDT 03/21/2025 4:15 AM EDT Jayant Alan DO LAB BLOOD ORDERABLES Final R esult Performing Organization Address City/[facility] Co de Phone Number [facility] [address] [place] [address], * (ABNORMAL) Complete blood count (03/20/2025 4:14 PM EDT) [facility] Signature WBC 20.1(H) 4.8 - 10.8 K/mcL LAB HEMETOLOGY METHOD 03/20/2025 4:42 PM EDT [facility] RBC 3.80 3.80 - 4.80 M/mcL LAB HEMETOLOGY METHOD 03/20/2025 4:42 PM EDT [facility] Hemoglobin 9.8(L) 11.5 - 16.0 g/dL LAB HEMETOLOGY METHOD 03/20/2025 4:42 PM EDT [facility] Hematocrit 31.6(L) 35.0 - 47.0 % LAB HEMETOLOGY METHOD 03/20/2025 4:42 PM EDT [facility] MCV 82.5 79.0 - 98.0 FL LAB HEMETOLOGY METHOD 03/20/2025 4:42 PM EDT [facility] MCH 25.6(L) 27.0 - 32.0 pcg LAB HEMETOLOGY METHOD 03/20/2025 4:42 PM EDT [facility] MCHC 31.0(L) 32.0 - 37.0 g/dL LAB HEMETOLOGY METHOD 03/20/2025 4:42 PM EDT [facility] RDW 16.9(H) 11.0 - 15.0 % LAB HEMETOLOGY METHOD 03/20/2025 4:42 PM EDT [facility] Platelets 312 130 - 400 K/mcL LAB HEMETOLOGY METHOD 03/20/2025 4:42 PM EDT [facility] MPV 8.2 7.0 - 11.0 FL LAB HEMETOLOGY METHOD 03/20/2025 4:42 PM EDT [facility] NRBC 0.0 <1.0 % LAB HEMETOLOGY METHOD 03/20/2025 4:42 PM EDT [facility] NRBC Absolute 0.00 <0.10 K/mcL LAB HEMETOLOGY METHOD 03/20/2025 4:42 PM EDT [facility] Blood Venous blood specimen / Unknown Venipuncture / Unknown 03/20/2025 4:14 PM EDT 03/20/2025 4:29 PM EDT Jayant La Miu LAB BLOOD ORDERABLES Final R esult Performing Organization Address [facility] Co de Phone Number [facility] [address] [place] [address], [place] [phone] * Lactate (03/20/2025 4:14 PM EDT) Only the most recent of3 resultswithin the time period is included. [facility] Lactate 1.7 0.4 - 2.0 mmol/L LAB CHEMISTRY METHOD 03/20/2025 5:00 PM EDT [facility] Blood Venous blood specimen / Unknown Venipuncture / Unknown 03/20/2025 4:14 PM EDT 03/20/2025 4:29 PM EDT Jayant [employer] LAB BLOOD ORDERABLES Final R esult Performing Organization Address City/[facility]/ZIP Co de Phone Number [facility] [address] [place] [address], [place] [phone] * Transfuse RBC, Leukoreduced (03/20/2025 4:10 PM EDT) Only the most recent of2 resultswithin the time period is included. Jayant [employer] BLOOD TRANSFUSION ORDERABLES Final Result * Troponin I high sensitivity (03/20/2025 2:14 PM EDT) [facility] High Sensitivity Troponin I 6 <=54 ng/L LAB CHEMISTRY METHOD 03/20/2025 2:57 PM EDT [facility] Blood Venous blood specimen / Unknown Venipuncture / Unknown 03/20/2025 2:14 PM EDT 03/20/2025 2:20 PM EDT Narrative [facility] - 03/20/2025 2:57 PM EDT High levels of biotin in samples may falsely decrease hsTroponin values. Use caution when interpreting hsTroponin results in patients taking biotin who exhibit renal impairment (eGFR <60) or in patients taking more than 20 mg/day of biotin. us Jayant Alan DO LAB BLOOD ORDERABLES Final R esult [facility] [address] [place] [address], [place] [phone] * CT Chest/Abdomen/Pelvis wo Contrast (03/20/2025 1:57 PM EDT) Anatomical Region Laterality Modality Body Computed Tomogra phy 03/20/2025 3:12 PM EDT Impressions 03/20/2025 3:21 PM EDT 1. There is a double-J ureteral stent in the left kidney and bladder. Uncertain calculi left kidney. There is a large stone in the left renal pelvis measuring 1.1 cm. There is inflammatory change around the left kidney and left hilum but there is no large hematoma present. 2. Nonobstructing calculi right kidney. 3. Atelectasis at the lung bases with trace effusions. -------- FINAL REPORT -------- Dictated By: Chuck Perkins Dictated Date: 03/20/2025 15:12 ET Assigned Physician: Chuck Perkins Reviewed and Electronically Signed By: Chuck Perkins Signed Date: 03/20/2025 15:21 ET Workstation ID: [id number] Transcribed By: Self Edit Transcribed Date: 03/20/2025 15:12 ET Narrative 03/20/2025 3:[address] CHEST, ABDOMEN AND PELVIS WITHOUT CONTRAST INDICATION: hypotension, worsening anemia, eval bleed L flank TECHNIQUE: Chest, abdomen and pelvis CT without contrast. Multiplanar reformats were created and interpreted. The examination was performed utilizing dose reduction techniques. Total DLP: 1493 mGy/cm COMPARISON: No priors available. FINDINGS: CT CHEST: LUNGS/PLEURA: Atelectasis at the lung bases with trace effusions. MEDIASTINUM: Thyroid nodules. No mediastinal or hilar lymphadenopathy. Cardiac chambers are normal in size. No pericardial effusion. Esophagus is normal. CHEST WALL: Calcified left axillary nodes as well as opacification of the left breast. CT ABDOMEN AND PELVIS: HEPATOBILIARY: No focal liver lesions. No cholelithiasis or biliary duct dilatation. SPLEEN: no focal lesion PANCREAS: No focal mass or ductal dilatation. ADRENALS: No nodules. KIDNEYS/URETERS: Nonobstructing calculi right kidney. There is a double-J ureteral stent in the left kidney and bladder. Uncertain calculi left kidney. There is a large stone in the left renal pelvis measuring 1.1 cm. There is inflammatory change around the left kidney and particularly at the left hilum but there is no large hematoma present. PELVIC ORGANS/BLADDER: Snell catheter within the bladder. PERITONEUM / RETROPERITONEUM: No ascites or free air. No retroperitoneal lymphadenopathy. VESSELS: Scattered atherosclerotic calcifications throughout the aorta and its major branches. No aneurysm. IVC filter in place with tines outside vena cava. GI TRACT: No bowel distention or wall thickening. Normal appendix. BONES AND SOFT TISSUES: Scattered degenerative changes seen throughout the bones. No acute fracture. Soft tissues are unremarkable. Procedure Note Chuck Perkins MD - 03/20/2025 CT CHEST, ABDOMEN AND PELVIS WITHOUT CONTRAST INDICATION: hypotension, worsening anemia, eval bleed L flank TECHNIQUE: Chest, abdomen and pelvis CT without contrast. Multiplanarreformats were created and interpreted. The examination was performedutilizing dose reduction techniques. Total DLP: 1493 mGy/cm COMPARISON: No priors available. FINDINGS: CT CHEST: LUNGS/PLEURA: Atelectasis at the lung bases with trace effusions. MEDIASTINUM: Thyroid nodules. No mediastinal or hilar lymphadenopathy.Cardiac chambers are normal in size. No pericardial effusion. Esophagus isnormal. CHEST WALL: Calcified left axillary nodes as well as opacification of theleft breast. CT ABDOMEN AND PELVIS: HEPATOBILIARY: No focal liver lesions. No cholelithiasis or biliary ductdilatation. SPLEEN: no focal lesion PANCREAS: No focal mass or ductal dilatation. ADRENALS: No nodules. KIDNEYS/URETERS: Nonobstructing calculi right kidney. There is a double- Jureteral stent in the left kidney and bladder. Uncertain calculi leftkidney. There is a large stone in the left renal pelvis measuring 1.1 cm.There is inflammatory change around the left kidney and particularly atthe left hilum but there is no large hematoma present. PELVIC ORGANS/BLADDER: Snell catheter within the bladder. PERITONEUM / RETROPERITONEUM: No ascites or free air. No retroperitoneallymphadenopathy. VESSELS: Scattered atherosclerotic calcifications throughout the aorta andits major branches. No aneurysm. IVC filter in place with tines outsidevena cava. GI TRACT: No bowel distention or wall thickening. Normal appendix. BONES AND SOFT TISSUES: Scattered degenerative changes seen throughout thebones. No acute fracture. Soft tissues are unremarkable. IMPRESSION: 1. There is a double-J ureteral stent in the left kidney and bladder.Uncertain calculi left kidney. There is a large stone in the left renalpelvis measuring 1.1 cm. There is inflammatory change around the leftkidney and left hilum but there is no large hematoma present. 2. Nonobstructing calculi right kidney. 3. Atelectasis at the lung bases with trace effusions. -------- FINAL REPORT -------- Dictated By: Chuck Perkins Dictated Date: 03/20/2025 15:12 ET Assigned Physician: Chuck Perkins Reviewed and Electronically Signed By: Chuck Perkins Signed Date: 03/20/2025 15:21 ET Workstation ID: [id number] Transcribed By: Self Edit Transcribed Date: 03/20/2025 15:12 ET us Jayant Alan DO IMG CT PROCEDURES Final Resu lt * ECG 12 lead (03/20/2025 1:42 PM EDT) Only the most recent of2 resultswithin the time period is included. Ventricular Rate ECG 89 BPM GEMUSE Atrial Rate 89 BPM GEMUSE P-R Interval 138 ms GEMUSE QRS Duration 78 ms GEMUSE Q-T Interval 370 ms GEMUSE QTc 450 ms GEMUSE P Wave [place] 65 degrees GEMUSE R [place] 0 degrees GEMUSE T [place] -10 degrees GEMUSE ECG Interpretation Normal sinus rhythm Normal ECG When compared with ECG of 19-MAR-2025 17:27, Nonspecific T wave abnormality no longer evident in Anterolateral leads Confirmed by MD Ron Christopher ([id number]) on 03/21/2025 8:46:02 AM GEMUSE 03/20/2025 1:42 PM EDT 03/21/2025 8:46 AM EDT us Jayant Alan DO ECG ORDERABLES Final Result Performing Organization Address [facility] Co de Phone Number GEMUSE * Prepare RBC: 1 Units, Leukoreduced (03/20/2025 12:51 PM EDT) Only the most recent of2 resultswithin the time period is included. Product Code [id number] 03/20/2025 2:34 PM EDT [facility] Unit Number [id number] 03/20/20 2:34 PM EDT [facility] Crossmatch Compatible 03/20/2025 1:04 PM EDT [facility] Dispense Status Transfused 03/20/2025 2:34 PM EDT [facility] Unit ABO Rh APOS 03/20/2025 2:34 PM EDT [facility] Unit Expiration Date Time [id number] 03/20/2025 2:34 PM EDT [facility] Unit Blood Type 6200 03/20/2025 2:34 PM EDT [facility] Blood Venous blood specimen / Unknown 03/20/2025 12:51 PM EDT 03/20/2025 5:46 AM EDT us Jayant Alan DO BLOOD BANK PRODUCT ORDERABLE S Final Result [facility] [address] [place] [address], * MRSA molecular study (03/20/2025 11:33 AM EDT) [facility] MRSA Screen PCR Not Detected Not Detected LAB MICROBIOLOGY METHOD 03/20/2025 1:13 PM EDT [facility] Swab Both anterior nares / Unknown Non-blood Collection / Unknown 03/20/2025 11:33 AM EDT 03/20/2025 11:41 AM EDT us Jayant Alan DO LAB MICROBIOLOGY - GENERAL O RDERABLES Final Result Performing Organization Address [facility]/ZIP Co de Phone Number [facility] [address] [place] [address], [place] [phone] * TRANSTHORACIC ECHOCARDIOGRAM (TTE) COMPLETE W/ CONTRAST (03/20/2025 8:30 AM EDT) [facility] Left Atrium Minor [place] 4.8 cm CV PACS Left Atrium Major [place] 5.4 cm CV PACS LA Area Sys (A2C) 16 cm2 CV PACS LA Area Sys (A4C) 15 cm2 CV PACS LA Volume (BP) 40 mL CV PACS RA Area 11.6 cm2 CV PACS RA 2D Volume 32 mL CV PACS Aortic Sinus Valsalva 2.8 cm CV PACS Ascending Aorta 3.0 cm CV PACS IVSD 0.7 0.6 - 0.9 cm CV PACS LVIDD 4.7 3.8 - 5.2 cm CV PACS LVIDS 3.2 2.2 - 3.5 cm CV PACS LVOT Diameter 1.8 cm CV PACS LVPWD 0.9 0.6 - 0.9 cm CV PACS MV E' Tissue Velocity Lateral 14 cm/s CV PACS MV E' Tissue Velocity Septal 12 cm/s CV PACS LVOT Area 2.5 cm2 CV PACS E Wave Deceleration Time 162 119 - 242 ms CV PACS MV Peak A Stiven 0.67 m/s CV PACS MV Peak E Stiven 0.95 m/s CV PACS RV Diastolic Basal Dimension 3.5 2.5 - 4.1 cm CV PACS RV S' 11 cm/s CV PACS TAPSE 21 mm CV PACS TR Peak Velocity 2.31 m/s CV PACS TR Peak Gradient 21 mmHg CV PACS E/E' Ratio Septal 8 CV PACS E/E' Ratio Averaged 7 CV PACS Relative Wall Thickness ratio 0.38 CV PACS FS 32 % CV PACS LV Mass 2D 122 g CV PACS Ascending Aorta Index 1.65 cm/m2 CV PACS RA 2D Volume Index 18 mL/m2 CV PACS LVIDD Index 2.58 cm/m2 CV PACS LVIDS Index 1.76 cm/m2 CV PACS E/A Ratio 1.4 CV PACS E/E' Ratio Lateral 7 CV PACS LA Volume Index (BP) 22 mL/m2 CV PACS LV Mass Index 2D 67 g/m2 CV PACS BSA 1.85 m2 CV PACS Right Ventricular Peak Systolic Pressure 24 mmHg CV PACS Est. RA Pressure 3 mmHg CV PACS Anatomical Region Laterality Modality Ultrasound Narrative 03/20/2025 9:12 AM EDT Left ventricle cavity size is normal. Wall thickness is normal. Systolic function is normal with an ejection fraction of 55-60%. There are no regional LV wall motion abnormalities. There is no diastolic dysfunction. Right ventricle cavity is normal. Right ventricular systolic function is normal. No hemodynamically significant valvular disease. The right ventricular systolic pressure is normal and estimated at 24 mmHg. Left Ventricle Left ventricle cavity size is normal. Wall thickness is normal. Systolic function is normal with an ejection fraction of 55-60%. There are no regional LV wall motion abnormalities. There is no diastolic dysfunction. Right Ventricle Right ventricle cavity appears normal. Systolic function is normal. Left Atrium Left atrium cavity size is normal. Right Atrium Right atrium cavity is normal. IVC/SVC Inferior vena cava structure is normal. Mitral Valve Mitral valve structure is normal. There is trace regurgitation. There is no evidence of mitral valve stenosis. Tricuspid Valve Tricuspid valve structure is normal. There is trace regurgitation. There is no evidence of tricuspid valve stenosis. The right ventricular systolic pressure is normal. Estimated RA pressure is 3 mmHg. The RVSP is estimated at 24 mmHg. Aortic Valve The aortic valve is trileaflet. There is no regurgitation or stenosis. Pulmonic Valve Visualized portions of the pulmonic valve appear normal. There is no regurgitation or stenosis. Ascending Aorta The aorta appears normal in size. Pericardium Pericardium appears normal. There is no pericardial effusion. Study Details Overall the study quality was technically difficult. Definity contrast was given to enhance imaging. Study was difficult due to: procedure performed with the patient in a supine position. Jayant Alan DO CV ECHO PROCEDURES Final Res ult * Type and screen (03/20/2025 5:36 AM EDT) ABO Group A 03/20/2025 6:53 AM EDT [facility] Rh Type Positive 03/20/2025 6:53 AM EDT [facility] Antibody Screen Negative 03/20/2025 6:53 AM EDT [facility] Blood Venous blood specimen / Unknown Venipuncture / Unknown 03/20/2025 5:36 AM EDT 03/20/2025 5:46 AM EDT Wan Stone MD LAB BLOOD BANK TEST ORDERAB LES Final Result Performing Organization Address [facility] Co de Phone Number [facility] [address] [place] [address], [place] [phone] * Treponema pallidum antibody with reflex to RPR and particle agglutination (03/20/2025 3:49 AM EDT) T. Pallidum Antibodies Negative Negative LAB CHEMISTRY METHOD 03/20/2025 8:56 AM EDT [facility] Blood Venous blood specimen / Unknown Venipuncture / Unknown 03/20/2025 3:49 AM EDT 03/20/2025 3:57 AM EDT Jayant Alan DO LAB BLOOD ORDERABLES Final R esult [facility] [address] [place] [address], [place] [phone] * Thyroid stimulating hormone with reflex to free t4 and free t3 (03/20/2025 3:49 AM EDT) [facility] TSH 0.48 0.40 - 4.00 mcIU/mL LAB CHEMISTRY METHOD 03/20/2025 8:45 AM EDT [facility] Blood Venous blood specimen / Unknown Venipuncture / Unknown 03/20/2025 3:49 AM EDT 03/20/2025 3:57 AM EDT Jayant Alan LAB BLOOD ORDERABLES Final R esult Performing Organization Address City/[facility]/ZIP Co de Phone Number [facility] [address] [place] [address], [place] [phone] * (ABNORMAL) Folate (03/20/2025 3:49 AM EDT) [facility] Folate >20.0(H) 2.8 - 17.0 ng/ml LAB CHEMISTRY METHOD 03/20/2025 9:20 AM EDT [facility] Blood Venous blood specimen / Unknown Venipuncture / Unknown 03/20/2025 3:49 AM EDT 03/20/2025 3:57 AM EDT Jayant Alan DO LAB BLOOD ORDERABLES Final R esult [facility] [address] [place] [address], [place] [phone] * Vitamin B12 (03/20/2025 3:49 AM EDT) [facility] Vitamin B-12 676 250 - 900 pcg/mL LAB CHEMISTRY METHOD 03/20/2025 9:20 AM EDT [facility] Blood Venous blood specimen / Unknown Venipuncture / Unknown 03/20/2025 3:49 AM EDT 03/20/2025 3:57 AM EDT Jayant Alan DO LAB BLOOD ORDERABLES Final R esult Performing Organization Address [facility]/ZIP Co de Phone Number [facility] [address] [place] [address], [place] [phone] * Cortisol (03/20/2025 3:49 AM EDT) Cortisol 10.8 mcg/dL LAB CHEMISTRY METHOD 03/20/2025 8:45 AM EDT [facility] Blood Venous blood specimen / Unknown Venipuncture / Unknown 03/20/2025 3:49 AM EDT 03/20/2025 3:57 AM EDT Narrative [facility] - 03/20/2025 8:45 AM EDT CORTISOL REFERENCE RANGE 8 AM SPEC: 5.0-23.0 mcg/dL 4 PM SPEC: 3.0-16.0 mcg/dL 8 PM SPEC: <5.0 mcg/dL Jayant Alan DO LAB BLOOD ORDERABLES Final R esult Performing Organization Address [facility] Co de Phone Number [facility] [address] [place] [address], [place] [phone] * (ABNORMAL) POCT Glucose, blood (03/20/2025 3:42 AM EDT) Glucose POCT 156(H) 70 - 100 mg/dL 03/20/2025 3:42 AM EDT [facility] Blood Capillary blood specimen / Unknown 03/20/2025 3:42 AM EDT 03/20/2025 3:43 AM EDT Wan Stone MD LAB POINT OF CARE T EST DOCKED DEVICE UNSOLICITED RESULTS Final Result [facility] [place] [facility] [address] [place] [address], * ECG-Annotated (03/20/2025) us Provider Onbase ECG ORDERABLES Final Result * XR Urogram Retrograde (03/19/2025 9:26 PM EDT) Anatomical Region Laterality Modality Body Radio Fluoroscop y 03/20/2025 8:05 AM EDT Narrative 03/20/2025 8:06 AM EDT Fluoroscopic spot radiographs obtained during a left endourologic procedure are submitted. No radiologist consultation was requested or provided during this procedure and there is no radiologist professional charge. This report is generated for documentation purposes only. The dose-area product for this procedure was 2.0284 Gy*cm2. PQRI CPT II G9500 -------- FINAL REPORT -------- Dictated By: Hugo Power Dictated Date: 03/20/2025 08:05 ET Assigned Physician: Hugo Power Reviewed and Electronically Signed By: Hugo Power Signed Date: 03/20/2025 08:06 ET Workstation ID: [id number] Transcribed By: Self Edit Transcribed Date: 03/20/2025 08:05 ET Procedure Note Hugo Power MD - 03/20/2025 Fluoroscopic spot radiographs obtained during a left endourologicprocedure are submitted. No radiologist consultation was requested orprovided during this procedure and there is no radiologist professionalcharge. This report is generated for documentation purposes only. The dose-area product for this procedure was 2.0284 Gy*cm2. PQRI CPT II G9500 -------- FINAL REPORT -------- Dictated By: Hugo Power Dictated Date: 03/20/2025 08:05 ET Assigned Physician: Hugo Power Reviewed and Electronically Signed By: Hugo Power Signed Date: 03/20/2025 08:06 ET Workstation ID: [id number] Transcribed By: Self Edit Transcribed Date: 03/20/2025 08:05 ET us Austen Harvey MD IMG FLUOROSCOPY PROCEDURES Final Result * TH AN LMA(NO CHARGE) (03/19/2025 9:13 PM EDT) Janny Tavarez MD - 03/19/2025 9:13 PM EDT Janny Ga MD 03/19/2025 9:14 PM General Information and Staff Patient location during procedure: OR Anesthesiologist: Janny Ga MD Performed by: Janny Ga MD Authorized by: Janny Ga MD Intubation Reason: elective Final Airway Details LMA Size: 3 LMA Type: LMA Seal Pressure: Final airway type: LMA Indications and Patient Condition Indications for airway management: anesthesia Preoxygenated: yesSoft Tissue Damage: Yes Dentition Unchanged: Yes MILS maintained throughout Mask difficulty assessment: 1 - vent by mask us Janny Ga MD ANESTHESIA ORDERABLES Final Resu lt * (ABNORMAL) Blood culture pathogens molecular study (03/19/2025 8:00 PM EDT) Staphylococcus epidermidis Detected (A) Not Detected LAB MICROBIOLOGY METHOD 03/21/2025 8:12 AM EDT [facility] mecA/C Detected (A) Not Detected LAB MICROBIOLOGY METHOD 03/21/2025 8:12 AM EDT [facility] Comment:mecA/C Gene Detected : Indicates Methicillin Resistant Staphylococcus. Blood Venous blood specimen / Unknown Venipuncture / Unknown 03/19/2025 8:00 PM EDT 03/19/2025 8:39 PM EDT us Trena Murillo MD LAB MICROBIOLOGY - GENERAL ORDER ARDEN Final Result [facility] [address] [place] [address], [place] [phone] * CT Abdomen Pelvis w Contrast (03/19/2025 5:56 PM EDT) Anatomical Region Laterality Modality Body Computed Tomogra phy 03/19/2025 6:37 PM EDT Impressions 03/19/2025 6:37 PM EDT 1. Nonobstructive right intrarenal stones measuring up to 0.4 cm. 2. Stone in the left proximal ureter measuring 1 cm causing ohvd-nx-bvehffgo hydroureteronephrosis. There is also nonobstructive left intrarenal stones measuring up to 0.8 cm. 3. Mild thickening of the urinary bladder wall may be related to cystitis. Correlation with urinalysis is suggested. This document has been electronically signed by: Lora Barahona MD on 03/19/2025 18:37:26 Narrative 03/19/2025 6:37 PM EDT INDICATION: Abdominal abscess/infection suspected CT abdomen and pelvis with contrast Comparison: CT/KO/MT/SR - CT CHEST ABD PEL W CONTRAST - 11/16/2024 02:05 PM EDT Findings: No consolidation or effusion. Nonobstructive right intrarenal stones measuring up to 0.4 cm. Stone in the left proximal ureter measuring 1 cm causing ixkr-nk-vsazavfo hydroureteronephrosis. There is also nonobstructive left intrarenal stones measuring up to 0.8 cm. No bowel obstruction, pneumoperitoneum, or pneumatosis. IVC filter noted. Mild thickening of the urinary bladder wall may be related to cystitis. Correlation with urinalysis is suggested. The bones are intact. Procedure Note Lora Barahona MD - 03/19/2025 INDICATION: Abdominal abscess/infection suspected CT abdomen and pelvis with contrast Comparison: CT/KO/MT/SR - CT CHEST ABD PEL W CONTRAST - 11/16/2024 02:05 PM EDT Findings: No consolidation or effusion. Nonobstructive right intrarenal stones measuring up to 0.4 cm. Stone in the left proximal ureter measuring 1 cm whwzlsmjofw-pn-qdxxilqp hydroureteronephrosis. There is also nonobstructive left intrarenalstones measuring up to 0.8 cm. No bowel obstruction, pneumoperitoneum, or pneumatosis. IVC filter noted. Mild thickening of the urinary bladder wall may be related to cystitis. Correlation with urinalysis is suggested. The bones are intact. IMPRESSION: 1. Nonobstructive right intrarenal stones measuring up to 0.4 cm. 2. Stone in the left proximal ureter measuring 1 cm causing zrpi-aq-jepbxmtm hydroureteronephrosis. There is also nonobstructiveleft intrarenal stones measuring up to 0.8 cm. 3. Mild thickening of the urinary bladder wall may be related tocystitis. Correlation with urinalysis is suggested. This document has been electronically signed by: Lora Barahona MD on 03/19/2025 18:37:26 Mateo Orosco MD IMG CT PROCEDURES Final Res ult * (ABNORMAL) Vitamin B12 and folate (03/19/2025 4:14 PM EDT) Vitamin B-12 950(H) 250 - 900 pcg/mL LAB CHEMISTRY METHOD 03/19/2025 11:28 PM EDT [facility] Folate >20.0(H) 2.8 - 17.0 ng/ml LAB CHEMISTRY METHOD 03/19/2025 11:28 PM EDT [facility] Blood Venous blood specimen / Unknown Venipuncture / Unknown 03/19/2025 4:14 PM EDT 03/19/2025 4:38 PM EDT Wan Stone MD LAB BLOOD ORDERABLES Final Result [facility] [address] [place] [address], [place] [phone] * (ABNORMAL) Iron and TIBC (03/19/2025 4:14 PM EDT) Iron 18(L) 40 - 150 mcg/dL LAB CHEMISTRY METHOD 03/19/2025 11:10 PM EDT [facility] TIBC 444 250 - 450 mcg/dL LAB CHEMISTRY METHOD 03/19/2025 11:10 PM EDT [facility] Iron Saturation 4(L) 15 - 50 % LAB CHEMISTRY METHOD 03/19/2025 11:10 PM EDT [facility] Blood Venous blood specimen / Unknown Venipuncture / Unknown 03/19/2025 4:14 PM EDT 03/19/2025 4:38 PM EDT us Wan Stone MD LAB BLOOD ORDERABLES Final Result Performing Organization Address [facility]/ZIP Co de Phone Number [facility] [address] [place] [address], [place] [phone] * (ABNORMAL) Reticulocyte count (03/19/2025 4:14 PM EDT) Retic Ct Abs 0.060 0.030 - 0.090 M/mcL LAB HEMETOLOGY METHOD 03/19/2025 10:57 PM EDT [facility] Retic Ct Pct 1.5 0.7 - 1.7 % LAB HEMETOLOGY METHOD 03/19/2025 10:57 PM EDT [facility] Immature Retic Fract 25.9(H) 2.3 - 15.9 % LAB HEMETOLOGY METHOD 03/19/2025 10:57 PM EDT [facility] Reticulocyte Hemoglobin 24.9(L) >29.0 pcg LAB HEMETOLOGY METHOD 03/19/2025 10:57 PM EDT [facility] Blood Venous blood specimen / Unknown Venipuncture / Unknown 03/19/2025 4:14 PM EDT 03/19/2025 4:38 PM EDT us Wan Stone MD LAB BLOOD ORDERABLES Final Result Performing Organization Address [facility]/ZIP Co de Phone Number [facility] [address] [place] [address], [place] [phone] * US Breast Limited Left (01/19/2025 3:41 PM EDT) Anatomical Region Laterality Modality Breast Left Ultrasound 01/19/2025 3:27 PM EDT Impressions 01/19/2025 4:09 PM EDT There is no mammographic or sonographic finding of concern in the area of palpable lump. There are findings from lumpectomy. The patient should be managed on the basis of the clinical breast exam. It is possible that the lumpectomy scar is more palpable due to reported weight loss There is no suspicious mass in the area of concern on CT of the chest 11/16/24. ASSESSMENT: BI-RADS 2: BENIGN RECOMMENDATION(S): 1: Clinical correlation recommended LEFT [facility]amm[facility] [address], [address] -------- FINAL REPORT -------- Dictated By: Duane Hassan Dictated Date: 01/19/2025 15:27 ET Assigned Physician: Duane Hassan Reviewed and Electronically Signed By: Duane Hassan Signed Date: 01/19/2025 16:09 ET Workstation ID: [id number] Transcribed By: Self Edit Transcribed Date: 01/19/2025 16:07 ET Narrative 01/19/2025 4:09 PM EDT EXAM: DIAGNOSTIC MAMMOGRAPHY, BILATERAL ULTRASOUND: DIAGNOSTIC ULTRASOUND, UNILATERAL LEFT HISTORY: The patient had a remote history of breast cancer. Stage IV disease with brain metastasis. Subsequent surgical removal of brain metastasis. The patient recently noticed a lump medial to the left lumpectomy scar. Upon interview with the patient she relates having lost at least 50 pounds over the previous 6 months. COMPARISON: The most recent mammogram available for comparison is 10/29/20 Correlation with portions of a CT 11/16/24 TECHNIQUE: Synthesized CC and MLO projections of each breast. Tomosynthesis of each breast in the CC and MLO projections. ADDITIONAL IMAGING: Tomosynthesis of the left breast in the craniocaudal projection exaggerated toward the axilla was also performed Technologist indicates difficult to achieve optimal positioning. Multiple technologists were necessary. High-frequency linear transducer ultrasound of the left breast targeted to the area(s) of clinical concern. Computer-aided detection was employed with the [employer] AI 3-D. TISSUE DENSITY: There are scattered areas of fibroglandular density. (BI-RADS category B) FINDINGS: MAMMOGRAPHY: RIGHT BREAST: No suspicious mass. No suspicious calcification. No distortion. No suspicious interval change. LEFT BREAST: The left breast is much smaller than the right. There is dystrophic calcification with skin retraction at the site of lumpectomy which is difficult to include. There is skin thickening. There is no definite suspicious mass is included. The area of palpable concern may not have been included on the mammogram. ULTRASOUND: LEFT BREAST 1 o'clock position, 6 cm from left nipple Area of palpable concern There is coarse shadowing consistent with the dystrophic calcification demonstrated on the mammogram. There is no other mass or suspicious area of altered echotexture. The left axilla was examined. There are no enlarged left axillary lymph nodes demonstrated Procedure Note Duane Hassan MD - 01/19/2025 EXAM: DIAGNOSTIC MAMMOGRAPHY, BILATERAL ULTRASOUND: DIAGNOSTIC ULTRASOUND, UNILATERAL LEFT HISTORY: The patient had a remote history of breast cancer. Stage IVdisease with brain metastasis. Subsequent surgical removal of brainmetastasis. The patient recently noticed a lump medial to the left lumpectomy scar. Upon interview with the patient she relates having lost at least 50 poundsover the previous 6 months. COMPARISON: The most recent mammogram available for comparison is10/29/20 Correlation with portions of a CT 11/16/24 TECHNIQUE: Synthesized CC and MLO projections of each breast.Tomosynthesis of each breast in the CC and MLO projections. ADDITIONAL IMAGING: Tomosynthesis of the left breast in the craniocaudalprojection exaggerated toward the axilla was also performed Technologist indicates difficult to achieve optimal positioning. Multipletechnologists were necessary. High-frequency linear transducer ultrasound of the left breast targeted tothe area(s) of clinical concern. Computer-aided detection was employed with the [employer] AI 3-D. TISSUE DENSITY: There are scattered areas of fibroglandular density.(BI-RADS category B) FINDINGS: MAMMOGRAPHY: RIGHT BREAST: No suspicious mass. No suspicious calcification. No distortion. Nosuspicious interval change. LEFT BREAST: The left breast is much smaller than the right. There is dystrophiccalcification with skin retraction at the site of lumpectomy which isdifficult to include. There is skin thickening. There is no definite suspicious mass is included. The area of palpable concern may not have been included on themammogram. ULTRASOUND: LEFT BREAST 1 o'clock position, 6 cm from left nipple Area of palpable concern There is coarse shadowing consistent with the dystrophic calcificationdemonstrated on the mammogram. There is no other mass or suspicious areaof altered echotexture. The left axilla was examined. There are no enlarged left axillary lymphnodes demonstrated IMPRESSION: There is no mammographic or sonographic finding of concern in the area ofpalpable lump. There are findings from lumpectomy. The patient should be managed on the basis of the clinical breast exam. It is possible that the lumpectomy scar is more palpable due to reportedweight loss There is no suspicious mass in the area of concern on CT of the chest11/16/24. ASSESSMENT: BI-RADS 2: BENIGN RECOMMENDATION(S): 1: Clinical correlation recommended LEFT Mamm[facility] location: [facility] [address], [address] -------- FINAL REPORT -------- Dictated By: Duane Hassan Dictated Date: 01/19/2025 15:27 ET Assigned Physician: Duane Hassan Reviewed and Electronically Signed By: Duane Hassan Signed Date: 01/19/2025 16:09 ET Workstation ID: [id number] Transcribed By: Self Edit Transcribed Date: 01/19/2025 16:07 ET us Esther YOUNG IMG US PROCEDURES Final Resul t * MG Mammo Digital Diagnostic w Terry bilat (01/19/2025 3:26 PM EDT) Anatomical Region Laterality Modality Breast Bilateral Mammography 01/19/2025 3:27 PM EDT Impressions 01/19/2025 4:09 PM EDT There is no mammographic or sonographic finding of concern in the area of palpable lump. There are findings from lumpectomy. The patient should be managed on the basis of the clinical breast exam. It is possible that the lumpectomy scar is more palpable due to reported weight loss There is no suspicious mass in the area of concern on CT of the chest 11/16/24. ASSESSMENT: BI-RADS 2: BENIGN RECOMMENDATION(S): 1: Clinical correlation recommended LEFT Mammography location: [facility] at [address], [address] -------- FINAL REPORT -------- Dictated By: Duane Hassan Dictated Date: 01/19/2025 15:27 ET Assigned Physician: Duane Hassan Reviewed and Electronically Signed By: Duane Hassan Signed Date: 01/19/2025 16:09 ET Workstation ID: [id number] Transcribed By: Self Edit Transcribed Date: 01/19/2025 16:07 ET Narrative 01/19/2025 4:09 PM EDT EXAM: DIAGNOSTIC MAMMOGRAPHY, BILATERAL ULTRASOUND: DIAGNOSTIC ULTRASOUND, UNILATERAL LEFT HISTORY: The patient had a remote history of breast cancer. Stage IV disease with brain metastasis. Subsequent surgical removal of brain metastasis. The patient recently noticed a lump medial to the left lumpectomy scar. Upon interview with the patient she relates having lost at least 50 pounds over the previous 6 months. COMPARISON: The most recent mammogram available for comparison is 10/29/20 Correlation with portions of a CT 11/16/24 TECHNIQUE: Synthesized CC and MLO projections of each breast. Tomosynthesis of each breast in the CC and MLO projections. ADDITIONAL IMAGING: Tomosynthesis of the left breast in the craniocaudal projection exaggerated toward the axilla was also performed Technologist indicates difficult to achieve optimal positioning. Multiple technologists were necessary. High-frequency linear transducer ultrasound of the left breast targeted to the area(s) of clinical concern. Computer-aided detection was employed with the [employer] 3-D. TISSUE DENSITY: There are scattered areas of fibroglandular density. (BI-RADS category B) FINDINGS: MAMMOGRAPHY: RIGHT BREAST: No suspicious mass. No suspicious calcification. No distortion. No suspicious interval change. LEFT BREAST: The left breast is much smaller than the right. There is dystrophic calcification with skin retraction at the site of lumpectomy which is difficult to include. There is skin thickening. There is no definite suspicious mass is included. The area of palpable concern may not have been included on the mammogram. ULTRASOUND: LEFT BREAST 1 o'clock position, 6 cm from left nipple Area of palpable concern There is coarse shadowing consistent with the dystrophic calcification demonstrated on the mammogram. There is no other mass or suspicious area of altered echotexture. The left axilla was examined. There are no enlarged left axillary lymph nodes demonstrated Procedure Note Duane Hassan MD - 01/19/2025 EXAM: DIAGNOSTIC MAMMOGRAPHY, BILATERAL ULTRASOUND: DIAGNOSTIC ULTRASOUND, UNILATERAL LEFT HISTORY: The patient had a remote history of breast cancer. Stage IVdisease with brain metastasis. Subsequent surgical removal of brainmetastasis. The patient recently noticed a lump medial to the left lumpectomy scar. Upon interview with the patient she relates having lost at least 50 poundsover the previous 6 months. COMPARISON: The most recent mammogram available for comparison is10/29/20 Correlation with portions of a CT 11/16/24 TECHNIQUE: Synthesized CC and MLO projections of each breast.Tomosynthesis of each breast in the CC and MLO projections. ADDITIONAL IMAGING: Tomosynthesis of the left breast in the craniocaudalprojection exaggerated toward the axilla was also performed Technologist indicates difficult to achieve optimal positioning. Multipletechnologists were necessary. High-frequency linear transducer ultrasound of the left breast targeted tothe area(s) of clinical concern. Computer-aided detection was employed with the [employer] 3[employer]D. TISSUE DENSITY: There are scattered areas of fibroglandular density.(BI-RADS category B) FINDINGS: MAMMOGRAPHY: RIGHT BREAST: No suspicious mass. No suspicious calcification. No distortion. Nosuspicious interval change. LEFT BREAST: The left breast is much smaller than the right. There is dystrophiccalcification with skin retraction at the site of lumpectomy which isdifficult to include. There is skin thickening. There is no definite suspicious mass is included. The area of palpable concern may not have been included on themammogram. ULTRASOUND: LEFT BREAST 1 o'clock position, 6 cm from left nipple Area of palpable concern There is coarse shadowing consistent with the dystrophic calcificationdemonstrated on the mammogram. There is no other mass or suspicious areaof altered echotexture. The left axilla was examined. There are no enlarged left axillary lymphnodes demonstrated IMPRESSION: There is no mammographic or sonographic finding of concern in the area ofpalpable lump. There are findings from lumpectomy. The patient should be managed on the basis of the clinical breast exam. It is possible that the lumpectomy scar is more palpable due to reportedweight loss There is no suspicious mass in the area of concern on CT of the chest11/16/24. ASSESSMENT: BI-RADS 2: BENIGN RECOMMENDATION(S): 1: Clinical correlation recommended LEFT Mamm[facility] location: [facility] at [address], [address] -------- FINAL REPORT -------- Dictated By: Duane Hassan Dictated Date: 01/19/2025 15:27 ET Assigned Physician: Duane Hassan Reviewed and Electronically Signed By: Duane Hassan Signed Date: 01/19/2025 16:09 ET Workstation ID: [id number] Transcribed By: Self Edit Transcribed Date: 01/19/2025 16:07 ET Esther YOUNG IMG BI PROCEDURES Final Resul t * MR Brain wo and w Contrast (01/05/2025 6:04 PM EDT) Anatomical Region Laterality Modality Head and Neck Magnetic Resonan ce 01/06/2025 8:45 AM EDT Impressions 01/06/2025 8:57 AM EDT Stable exam compared to 07/21/2023 and 10/17/2022. No new or recurrent metastatic disease. -------- FINAL REPORT -------- Dictated By: BRANDON GRANDE Dictated Date: 01/06/2025 08:45 ET Assigned Physician: BRANDON GRANDE Reviewed and Electronically Signed By: BRANDON GRANDE Signed Date: 01/06/2025 08:57 ET Workstation ID: [id number] Transcribed By: Self Edit Transcribed Date: 01/06/2025 08:45 ET Narrative 01/06/2025 8:57 AM EDT PROCEDURE: Brain MRI INDICATION: Breast cancer, metastatic disease TECHNIQUE: Multiplanar, multisequence MRI of the brain without and with contrast. 20 mL Dotarem injected intravenously from a 20 mL vial without complication COMPARISON: 10/17/2022 and 07/21/2023 FINDINGS: No acute infarct, mass effect, or intracranial hemorrhage. Encephalomalacia and gliosis in the right temporal lobe, insula, and right mora radiata are similar compared to prior. Sella and foramen magnum are within normal limits. Unchanged benign left frontal lobe cavernous malformation. No new abnormal intracranial enhancement. Mild chronic small vessel ischemic changes throughout the supratentorial white matter are similar compared to prior. Scattered foci of susceptibility artifact throughout the cerebrum are stable compared to prior, likely related to chronic microhemorrhage. Ventricles are unchanged in size with mild diffuse cerebral and loss noted. No hydrocephalus. Major dural venous sinuses enhance normally with contrast. Major intracranial arterial flow voids are normal. Left maxillary sinus retention cyst. Sinuses and mastoid air cells are otherwise clear. Orbits and extracranial soft tissues are normal. Right frontotemporal craniotomy noted. No marrow replacing lesions throughout the calvarium. Procedure Note Brandon Grande MD - 01/06/2025 PROCEDURE: Brain MRI INDICATION: Breast cancer, metastatic disease TECHNIQUE: Multiplanar, multisequence MRI of the brain without and withcontrast. 20 mL Dotarem injected intravenously from a 20 mL vial withoutcomplication COMPARISON: 10/17/2022 and 07/21/2023 FINDINGS: No acute infarct, mass effect, or intracranial hemorrhage. Encephalomalacia and gliosis in the right temporal lobe, insula, and rightcorona radiata are similar compared to prior. Sella and foramen magnum are within normal limits. Unchanged benign left frontal lobe cavernous malformation. No newabnormal intracranial enhancement. Mild chronic small vessel ischemic changes throughout the supratentorialwhite matter are similar compared to prior. Scattered foci ofsusceptibility artifact throughout the cerebrum are stable compared toprior, likely related to chronic microhemorrhage. Ventricles are unchanged in size with mild diffuse cerebral and lossnoted. No hydrocephalus. Major dural venous sinuses enhance normally with contrast. Majorintracranial arterial flow voids are normal. Left maxillary sinus retention cyst. Sinuses and mastoid air cells areotherwise clear. Orbits and extracranial soft tissues are normal. Rightfrontotemporal craniotomy noted. No marrow replacing lesions throughoutthe calvarium. IMPRESSION: Stable exam compared to 07/21/2023 and 10/17/2022. No new or recurrentmetastatic disease. -------- FINAL REPORT -------- Dictated By: BRANDON GRANDE Dictated Date: 01/06/2025 08:45 ET Assigned Physician: BRANDON GRANDE Reviewed and Electronically Signed By: BRANDON GRANDE Signed Date: 01/06/2025 08:57 ET Workstation ID: [id number] Transcribed By: Self Edit Transcribed Date: 01/06/2025 08:45 ET Keri To DO IMG MRI PROCEDURES Fi nal Result * BD Bone Density DXA Axial Skeleton (11/16/2024 1:38 PM EDT) Anatomical Region Laterality Modality Wrist, Hip, L-spine Bone Densito metry 11/17/2024 7:51 AM EDT Impressions 11/17/2024 7:53 AM EDT 1. Osteopenia. There has been a decrease of 14.6% in bone mineral density in the lumbar spine since the prior examination of 11/06/2014. There has been a decrease of 21.4% in bone mineral density in the right femur and a decrease of 20.5% in bone mineral density in the left femur. 2. FRAX analysis yields a 10-year probability of major osteoporotic fracture of 6.1% and a 10-year probability of hip fracture of 1.1%. Code 11250 -------- FINAL REPORT -------- Dictated By: Hugo Power Dictated Date: 11/17/2024 07:51 ET Assigned Physician: Hugo Power Reviewed and Electronically Signed By: Hugo Power Signed Date: 11/17/2024 07:53 ET Workstation ID: [id number] Transcribed By: Self Edit Transcribed Date: 11/17/2024 07:51 ET Narrative 11/17/2024 7:53 AM EDT HISTORY: The patient is a 54-year-old postmenopausal female with clinical concern for metabolic bone disease. FINDINGS: Dual energy x-ray absorptiometry of the lumbar spine and femurs is performed. The mean bone mineral density at L1-L4 (with the exclusion of L3) is 1.029 gm/cm2 which is 88% of that of young normals and 87% of that of age matched controls. This yields a T-score of -1.2 and a Z-score of -1.3 which is diagnostic of osteopenia. The mean bone mineral density of the femurs bilaterally is 0.808 gm/cm2 which is 80% of that of young normals and 76% of that of age matched controls. This yields a T-score of -1.6 and a Z-score of -2.1 which is diagnostic of osteopenia. The T-score of the right femoral neck is -1.6 and that of the left femoral neck is -1.7 which is diagnostic of osteopenia. Procedure Note Hugo Power MD - 11/17/2024 HISTORY: The patient is a 54-year-old postmenopausal female with clinicalconcern for metabolic bone disease. FINDINGS: Dual energy x-ray absorptiometry of the lumbar spine and femursis performed. The mean bone mineral density at L1-L4 (with the exclusionof L3) is 1.029 gm/cm2 which is 88% of that of young normals and 87% ofthat of age matched controls. This yields a T-score of -1.2 and a Z-scoreof -1.3 which is diagnostic of osteopenia. The mean bone mineral density of the femurs bilaterally is 0.808 gm/bx1fnvma is 80% of that of young normals and 76% of that of age matchedcontrols. This yields a T-score of -1.6 and a Z-score of -2.1 which isdiagnostic of osteopenia. The T- score of the right femoral neck is -1.6and that of the left femoral neck is -1.7 which is diagnostic ofosteopenia. IMPRESSION: 1. Osteopenia. There has been a decrease of 14.6% in bone mineral densityin the lumbar spine since the prior examination of 11/06/2014. There hasbeen a decrease of 21.4% in bone mineral density in the right femur and adecrease of 20.5% in bone mineral density in the left femur. 2. FRAX analysis yields a 10-year probability of major osteoporoticfracture of 6.1% and a 10-year probability of hip fracture of 1.1%. Code 33381 -------- FINAL REPORT -------- Dictated By: Hugo Power Dictated Date: 11/17/2024 07:51 ET Assigned Physician: Hugo Power Reviewed and Electronically Signed By: Hugo Power Signed Date: 11/17/2024 07:53 ET Workstation ID: [id number] Transcribed By: Self Edit Transcribed Date: 11/17/2024 07:51 ET Keri To DO IMG DXA PROCEDURES Fi nal Result * Lipid panel (03/18/2021) [facility] LDL/HDL Ratio 0 Comment:No Interpretation Triglycerides 0 mg/dL Comment:No Interpretation Cholesterol 0 mg/dL Comment:No Interpretation HDL 0 mg/dL Comment:No Interpretation LDL Cholesterol 0 mg/dL Comment:No Interpretation Blood Venous blood specimen / Unknown Result [facility] Historical Provider LAB BLOOD ORDERABLES Gwen l Result * HIV Screening (01/21/2021) [facility] HIV Screening Abstracted Historical Provider HEALTH MAINTENANCE Final Result * Hepatitis C Screening (01/21/2021) [facility] Hepatitis C Screening Abstracted Historical Provider HEALTH MAINTENANCE Final Result from Last 3 Months or Most Recently Relevant to Health Maintenance Additional Health Concerns Active Problems Noted Date Diagnosed Date Autogenerated Problem 03/19/2025 Insurance [facility] MEDICARE Member Subscriber Plan / Payer (Ef fective 2024-Present) Name:HANH GLOVER Relation to Subscriber:Self Name:Hanh Glover Payer ID:[id number] Group ID:[id number] Type:Not on file Address: [place] [address] [place] [id number] Advance Directives Documents on File 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 Do not modify or discontinue any currently active code status orders. Care Teams Development Team Lead Relationship Specialty Start Date End Date Asuncion Contreras NP [address] [place] [phone] PCP - General Nurse Practitioner 03/24/22
--- OUTSIDE RECORDS SUMMARY | 2025-04-07 18:30 | XMS_ITS | Encounter Summary ---
Author Organization [employer] [facility] Address [address] [place] [address] 7t [place] [address] Care Team Providers Care Oven Unloader Name Role Phone Asuncion Contreras Primary Care Provider [phone] Encounter Details Date Type Department Care Team (Late st Contact Info) Description 08/29/[address] [address] Asuncion Contreras ANP [address] [place] [address] Social History Tobacco Use Types Packs/Day Years [...] Description 05/25/2025 11:00 AM EST Office Visit [address] [address] Asuncion Contreras ANP [address] [place] [address] documented as of this encounter Visit Diagnoses Not on filedocumented in this encounter Care Teams Oven Unloader Relationship Specialty Start Date End Date Asuncion Contreras ANP [address] [place] [address] PCP - General Family Medicine 12/12/19 [employer] 02/01/24 documented as of this encounter
--- OUTSIDE RECORDS SUMMARY | 2025-04-07 18:30 | XMS_ITS | Encounter Summary ---
Author Organization [employer] Address [address] [facility] 7t [place] [address] Care Team Providers Care Hr Consultant Name Role Phone Asuncion Contreras Primary Care Provider [phone] Encounter Details Date Type Department Care Team ([facility] st Contact Info) Description 06/29/2024 Orders Only [facility] [address] [place] [address] ProviderKiran MD Social History Tobacco Use Types [...] Description 05/25/2025 11:00 AM EST Office Visit [facility] MEDICINE [address] [place] [address] Asuncion Contreras ANP [address] [place] [address] documented as of this encounter Procedures Procedure [...] documented as of this encounter Care Teams Hr Consultant Relationship Specialty Start Date End Date Asuncion Contreras ANP [address] [place] [address] PCP - General Family Medicine 12/12/19 [employer] 02/01/24 documented as of this encounter
--- OUTSIDE RECORDS SUMMARY | 2025-04-07 18:30 | XMS_ITS | Encounter Summary ---
Author Organization [employer] Address [address] [facility] 7t [place] [address] Care Team Providers Care Cementer Machine Applicator Name Role Phone Asuncion Contreras Primary Care Provider [phone] Reason for Visit * Reason Onset Date Comments Nurse Triage 05/06/2024 Encounter Details Date Type Department Care Team ([facility] st Contact Info) Description 05/06/2024 Telephone [facility] MEDICINE [address] [place], [place] [phone] Asuncion Contreras ANP [address] [place] [address] Nurse Triage Social History Tobacco Use Types [...] the past 24 hours Contact pt at [phone] documented in this encounter Plan of Treatment Upcoming Encounters Date Type Department Care Team (Late st Contact Info) Description 05/25/2025 11:00 AM EST Office Visit [facility] [address] [place] [address] Asuncion Contreras ANP [address] [place] [address] documented as of this encounter Visit Diagnoses Not on filedocumented in this encounter Additional Health Concerns Assessment Noted Time PHQ-9 Depression Total Score: 0 09/25/19 24 3:01 PM EDT documented as of this encounter Care Teams Cementer Machine Applicator Relationship Specialty Start Date End Date Asuncion Contreras ANP [address] [place] [address] PCP - General Family Medicine 12/12/19 [employer] 02/01/24 documented as of this encounter
--- OUTSIDE RECORDS SUMMARY | 2025-04-07 18:30 | XMS_ITS | Encounter Summary ---
Author Organization [employer] Address [address] [facility] 7t [place] [address] Care Team Providers Care Electrical Products Engineer Name Role Phone Asuncion Contreras Primary Care Provider [phone] Reason for Visit * Reason Onset Date Comments Medication Question 10/30/2022 Encounter Details Date Type Department Care Team ([facility] st Contact Info) Description 10/30/2022 Telephone [facility] MEDICINE [address] [place], [place] [phone] Asuncion Contreras ANP [address] [place] [address] Medication Question Social History Tobacco Use Types [...] is able to have medication faxed to [phone]. * Telephone Encounter - Dannielle Mcdonough RN - 10/31/2022 11:22 AM EDT TC to Quintin at [facility], she stated pt is allergic to tylenol [...] pt medication. Please contact pt quintin at [phone] documented in this encounter Plan of Treatment Upcoming Encounters Date Type Department Care Team (Late st Contact Info) Description 05/25/2025 11:00 AM EST Office Visit [facility] MEDICINE [address] [place] [address] Asuncion Contreras ANP [address] [place] [address] documented as of this encounter Visit Diagnoses Not on filedocumented in this encounter Care Teams Electrical Products Engineer Relationship Specialty Start Date End Date Asuncion Contreras ANP [address] [place] [phone] PCP - General Family Medicine 12/12/19 [employer] 02/01/24 documented as of this encounter
--- OUTSIDE RECORDS SUMMARY | 2025-04-07 18:30 | XMS_ITS | Encounter Summary ---
Author Organization [employer] Address [address] [facility] 7t [place] [address] Care Team Providers Care Greige Goods Inspector Name Role Phone Asuncion Contreras Primary Care Provider [phone] Encounter Details Date Type Department Care Team ([facility] st Contact Info) Description 03/21/2025 Orders Only [facility] [address] [place] [address] ProviderKiran MD Social History Tobacco Use Types [...] Description 05/25/2025 11:00 AM EST Office Visit [facility] MEDICINE 230 [place], [place] [phone] Asuncion Contreras ANP [address] [place] [address] documented as of this encounter Procedures Procedure Name Priority Date/Time Associated Diagnosis Comments CT ABDOMEN PELVIS W CONTRAST Routine 03/19/2025 2:05 PM EDT documented in this encounter Results * CT Abdomen Pelvis w/ Contrast (03/19/2025 2:05 PM EDT) Anatomical Region Laterality Modality Body, Pelvis, Abdomen Computed T omography Historical Provider MD FAJARDO CT PROCEDURES Final R esult documented in this encounter Visit Diagnoses Not on filedocumented in this encounter Additional Health Concerns Assessment Noted Time PHQ-9 Depression Total Score: 9 09/27/19 25 4:02 PM EDT documented as of this encounter Care Teams Greige Goods Inspector Relationship Specialty Start Date End Date Asuncion Contreras ANP [address] [place] [address] PCP - General Family Medicine 12/12/19 [employer] 02/01/24 documented as of this encounter
--- OUTSIDE RECORDS SUMMARY | 2025-04-07 18:30 | XMS_ITS | Encounter Summary ---
Author Organization [employer] Address [address] [facility] 7t [place] [address] Care Team Providers Care Transportation Refrigeration Technician Name Role Phone Asuncion Contreras Primary Care Provider [phone] Reason for Visit * Reason Comments Med Refill Encounter Details Date Type Department Care Team ([facility] st Contact Info) Description 11/16/2023 Refill [facility] MEDICINE 230 [place], [place] [phone] Asuncion Contreras ANP [address] [place] [address] Vitamin D deficiency Social History Tobacco Use [...] 05/25/2025 11:00 AM EST Office Visit [facility] MEDICINE [address] [place] [address] Asuncion Contreras ANP [address] [place] [address] documented as of this encounter Visit Diagnoses Diagnosis Vitamin D deficiency documented in this encounter Additional Health Concerns Assessment Noted Time PHQ-9 Depression Total Score: 0 09/25/19 24 3:01 PM EDT documented as of this encounter Care Teams Transportation Refrigeration Technician Relationship Specialty Start Date End Date Asuncion Contreras ANP [address] [place] [address] PCP - General Family Medicine 12/12/19 [employer] [facility] 02/01/24 documented as of this encounter
--- OUTSIDE RECORDS SUMMARY | 2025-04-07 18:30 | XMS_ITS | Encounter Summary ---
Author Organization [employer] [facility] Address [address] [place] [address] 7t [place] [address] Care Team Providers Care Streaming Media Specialist Name Role Phone Asuncion Contreras Primary Care Provider [phone] Reason for Visit * Reason Comments Med Refill Encounter Details Date Type Department Care Team (Late st Contact Info) Description 09/10/2023 Refill [facility] MEDICINE [address] [place] [address] Asuncion Contreras ANP [address] [place] [address] Social History Tobacco Use Types Packs/Day Years [...] 11:00 AM EST Office Visit [facility] MEDICINE [address] [place] [address] Asuncion Contreras ANP [address] [place] [address] documented as of this encounter Visit Diagnoses Not on filedocumented in this encounter Care Teams Streaming Media Specialist Relationship Specialty Start Date End Date Asuncion Contreras ANP [address] [place] [address] PCP - General Family Medicine 12/12/19 [employer] 02/01/24 documented as of this encounter
--- OUTSIDE RECORDS SUMMARY | 2025-04-07 18:30 | XMS_ITS | Encounter Summary ---
Author Organization [employer] [facility] Address [address] [place] [address] 7t [place] [address] Care Team Providers Care College Sports Assistant Name Role Phone Asuncion Contreras Primary Care Provider [phone] Encounter Details Date Type Department Care Team (Late st Contact Info) Description 07/30/[address] [address] Asuncion Contreras ANP [address] [place] [address] Social History Tobacco Use Types Packs/Day Years [...] Description 05/25/2025 11:00 AM EST Office Visit [address] [address] Asuncion Contreras ANP [address] [place] [address] documented as of this encounter Visit Diagnoses Not on filedocumented in this encounter Care Teams College Sports Assistant Relationship Specialty Start Date End Date Asuncion Contreras ANP [address] [place] [address] PCP - General Family Medicine 12/12/19 [employer] 02/01/24 documented as of this encounter
--- OUTSIDE RECORDS SUMMARY | 2025-04-07 18:30 | XMS_ITS | Encounter Summary ---
Author Organization [employer] Address [address] [facility] 7t [place] [address] Care Team Providers Care Plastics Fitter Name Role Phone Asuncion Contreras Primary Care Provider [phone] Reason for Visit * Reason Onset Date Comments Med Refill 10/15/2023 Encounter Details Date Type Department Care Team ([facility] st Contact Info) Description 10/15/[address] [facility] MEDICINE [address] [place], [place] [phone] Asuncion Contreras ANP [address] [place] [address] Med Refill Social History Tobacco Use Types [...] 300 MG capsule To be sent to: [facility] - [place], [place] - [address] documented in this encounter Plan of Treatment Upcoming Encounters Date Type Department Care Team (Late st Contact Info) Description 05/25/2025 11:00 AM EST Office Visit [facility] MEDICINE [address] [place] [address] Asuncion Contreras ANP [address] [place] [address] documented as of this encounter Visit Diagnoses Not on filedocumented in this encounter Additional Health Concerns Assessment Noted Time PHQ-9 Depression Total Score: 0 09/25/19 24 3:01 PM EDT documented as of this encounter Care Teams Plastics Fitter Relationship Specialty Start Date End Date Asuncion Contreras ANP [address] [place] [address] PCP - General Family Medicine 12/12/19 [employer] 02/01/24 documented as of this encounter
--- OUTSIDE RECORDS SUMMARY | 2025-04-07 18:30 | XMS_ITS | Encounter Summary ---
Author Organization [employer] Address [address] [facility] 7t [place] [address] Care Team Providers Care Field Placement Director Name Role Phone Asuncion Contreras Primary Care Provider [phone] Encounter Details Date Type Department Care Team ([facility] st Contact Info) Description 03/22/2025 Orders Only [facility] [address] [place] [address] ProviderKiran MD Social History Tobacco Use Types [...] Description 05/25/2025 11:00 AM EST Office Visit [facility] MEDICINE [address] [place] [phone] Asuncion Contreras ANP [address] [place] [address] documented as of this encounter Procedures Procedure Name Priority Date/Time Associated Diagnosis Comments CT ABDOMEN PELVIS WO CONTRAST Routine 03/19/2025 11:47 AM EDT documented in this encounter Results * CT Abdomen Pelvis w/o Contrast (03/19/2025 11:47 AM EDT) Anatomical Region Laterality Modality Body, Pelvis, Abdomen Computed T omography Historical Provider MD FAJARDO CT PROCEDURES Final R esult documented in this encounter Visit Diagnoses Not on filedocumented in this encounter Additional Health Concerns Assessment Noted Time PHQ-9 Depression Total Score: 9 09/27/19 25 4:02 PM EDT documented as of this encounter Care Teams Field Placement Director Relationship Specialty Start Date End Date Asuncion Contreras ANP [address] [place] [phone] PCP - General Family Medicine 12/12/19 [employer] 02/01/24 documented as of this encounter
--- OUTSIDE RECORDS SUMMARY | 2025-04-07 18:30 | XMS_ITS | Encounter Summary ---
Author Organization [employer] [facility] Address [address] [place] [address] 7t [place] [address] Care Team Providers Care Clerical And Administrative Workers Name Role Phone Asuncion Contreras Primary Care Provider [phone] Encounter Details Date Type Department Care Team (Late st Contact Info) Description 07/19/2022 Orders Only [facility] [address] [place] [phone] Rob Morris PharmD ERRONEOUS ENCOUNTER--DISREGARD (Primary Dx) [...] Description 05/25/2025 11:00 AM EST Office Visit [facility] [address] [place] [address] Asuncion Contreras ANP [address] [place] [address] documented as of this encounter Visit Diagnoses Diagnosis ERRONEOUS ENCOUNTER--DISREGARD- Primary documented in this encounter Care Teams Clerical And Administrative Workers Relationship Specialty Start Date End Date Asuncion Contreras ANP [address] [place] [address] PCP - General Family Medicine 12/12/19 [employer] 02/01/24 documented as of this encounter
--- OUTSIDE RECORDS SUMMARY | 2025-04-07 18:30 | XMS_ITS | Encounter Summary ---
Author Organization [employer] Address [address] [facility] 7t [place] [address] Care Team Providers Care Welder Tack Name Role Phone Asuncion Contreras Primary Care Provider [phone] Reason for Visit * Reason Onset Date Comments Medication Question 03/05/2023 Encounter Details Date Type Department Care Team ([facility] st Contact Info) Description 03/05/2023 Telephone [facility] MEDICINE [address] [place], [place] [phone] Asuncion Contreras ANP [address] [place], [place] [phone] Medication Question Social History Tobacco Use Types [...] AM EDT Tc from [facility] (OT) at [facility] is requesting per patients Son and to have a medication review. documented in this encounter Plan of Treatment Upcoming Encounters Date Type Department Care Team (Late st Contact Info) Description 05/25/2025 11:00 AM EST Office Visit [facility] [address] [place] [address] Asuncion Contreras ANP [address] [place] [address] documented as of this encounter Visit Diagnoses Not on filedocumented in this encounter Care Teams Welder Tack Relationship Specialty Start Date End Date Asuncion Contreras ANP [address] [place] [address] PCP - General Family Medicine 12/12/19 [facility] 02/01/24 documented as of this encounter
--- OUTSIDE RECORDS SUMMARY | 2025-04-07 18:30 | XMS_ITS | Clinical Summary ---
Author Organization [employer] Address [address] [facility] [address] [place] [address] Care Team Providers Care Utilization Review Rn Name Role Phone Asuncion Contreras Primary Care Provider Allergies Active Allergy Reactions Criticality Noted Date Comments Acetaminophen 09/30/2016 Other reaction(s): itching Bupropion Rash High 12/08/2012 Other reaction(s): Hives / Skin Rash Oxycodone 09/30/2016 Other reaction(s): itching Penicillins 11/23/2012 Tolerates ceftriaxone ([facility] 03/19/25) Medications Emollient (Eucerin Original Healing) lotion Use twice daily to feet 022 Active exemestane (Aromasin) 25 MG chemo tablet take 1 tablet (25MG) by oral route every morning Active QUEtiapine (SEROquel) 300 MG tablet Take 1 tablet by mouth in the morning. Active Banophen 50 MG capsule Take 1 capsule by mouth at bedtime. Active ketoconazole (NIZOral) 2 % shampoo APPLY BY TOPICAL ROUTE EVERY 3 DAYS TO SCALP(S), LATHER, LEAVE IN PLACE FOR 5 MINUTES, AND THEN RINSE OFF WITH WATER Active traZODone (Desyrel) 100 MG tablet Take 2 tablets by mouth in the evening. Active lamoTRIgine (LaMICtal) 150 MG tablet Take 2 tablets by mouth 1 (one) time each day. Active Acetaminophen Extra Strength 500 MG tablet TAKE 1 TABLET BY MOUTH 3 TIMES A DAY,X30 DAYS 023 Active naltrexone (Depade) 50 MG tablet TAKE 1 TABLET BY MOUTH ONCE A DAY 023 Active perphenazine 4 MG tablet TAKE 1 TABLET BY MOUTH DAILY AND 2 TABLET BY MOUTH DAILY AT BEDTIME 023 Active albuterol 108 (90 Base) MCG/ACT inhaler Inhale 2 puffs every 4 (four) hours if needed for wheezing. 18 g 1 023 Active cholecalciferol 10 MCG (400 UNIT) tabletIndicatio ns:Vitamin D deficiency TAKE 1 TABLET ONCE DAILY 90 tablet 1 024 Active metoprolol succinate XL (Toprol-XL) 50 MG 24 hr tabletIndicatio ns:Primary hypertension TAKE 1 TABLET (50 MG) BY MOUTH ONCE PER DAY. DO NOT CRUSH OR CHEW. 30 tablet 3 025 Active senna-docusate (Stool Softener/Laxati ve) 8.6-50 MG tablet TAKE 2 TABLETS BY MOUTH EVERY DAY FOR CONSTIPATION 60 tablet 3 025 Active gabapentin (Neurontin) 300 MG capsuleIndicati ons:Cervical stenosis of spine TAKE 2 CAPSULES BY MOUTH THREE TIMES EVERY DAY 180 capsule 025 Active apixaban (Eliquis) 5 MG tabletIndicatio ns:History of pulmonary embolism TAKE 1 TABLET (5 MG) BY MOUTH IN THE MORNING AND AT BEDTIME. 60 tablet 025 Active Multiple Vitamins-Minera ls (CertaVite Senior/Antioxid ant) tablet TAKE 1 TABLET BY MOUTH EVERY DAY 30 tablet 4 025 Active tamsulosin (Flomax) 0.4 MG 24 hr capsule TAKE 1 CAPSULE BY MOUTH EVERY DAY 30 capsule 4 025 Active omeprazole (PriLOSEC) [address] capsuleIndicati ons:Chronic GERD TAKE 1 CAPSULE (20 MG) BY MOUTH BEFORE BREAKFAST AND BEFORE EVENING MEAL. 60 capsule 025 Active hydrOXYzine pamoate (Vistaril) 25 MG capsule Take 1 capsule by mouth if needed each day for itching. 025 Active QUEtiapine (SEROquel) 25 MG tablet Take 1 tablet by mouth Once per day. 025 Active ammonium lactate (Amlactin) 12 % creamIndication s:Pruritus Apply topically if needed for dry skin. 145 g 2 025 2025 Active diphenhydrAMINE (BENADryl) 25 MG tabletIndicatio ns:Pruritus Take 0.5 tablets (12.5 mg) by mouth if needed each day for itching. 30 tablet 025 2024 Active betamethasone valerate (Valisone) 0.1 % ointmentIndicat ions:Pruritus Apply topically if needed in the morning and at bedtime (psoriasis). 45 g 2 025 Active ondansetron (Zofran) 4 MG tabletIndicatio ns:Nausea Take 1 tablet (4 mg) by mouth every 12 (twelve) hours if needed for nausea or vomiting for up to 10 days. 20 tablet 025 2024 Active acitretin (Soriatane) 25 MG capsule Take 1 capsule by mouth in the morning. 022 2024 Discontinued(M ed list cleanup (will not trigger notification to Pharmacy)) betamethasone valerate (Valisone) 0.1 % ointment Apply topically if needed in the morning and at bedtime (psoriasis). 45 g 2 023 2024 Discontinued(R eorder (will not trigger notification to Pharmacy)) ondansetron (Zofran) 4 MG tablet 024 2024 Discontinued(R eorder (will not trigger notification to Pharmacy)) tamsulosin (Flomax) 0.4 MG 24 hr capsule TAKE 1 CAPSULE BY MOUTH EVERY DAY 30 capsule 5 025 2024 Discontinued Multiple Vitamins-Minera ls (CertaVite Senior/Antioxid ant) tablet TAKE 1 TABLET BY MOUTH EVERY DAY 30 tablet 5 025 2024 Discontinued apixaban (Eliquis) 5 MG tabletIndicatio ns:History of pulmonary embolism TAKE 1 TABLET (5 MG) BY MOUTH IN THE MORNING AND AT BEDTIME. 60 tablet 025 2024 Discontinued omeprazole (PriLOSEC) [address] capsuleIndicati ons:Chronic GERD TAKE 1 CAPSULE (20 MG) BY MOUTH BEFORE BREAKFAST AND BEFORE EVENING MEAL. 60 capsule 025 2024 Discontinued Active Problems Patient Care Coordination No te Formatting of this note migh t be different from the original. Pt presented to [facility] at baseline level of health. Pt requested a PT referral to [facility] for out patient PT. Pt has ongoing difficulty with balance. This music writer contacted pt's PCP (THOMAS Alonzo) who gave a V.O. to initiate referral request. Problem Noted Date Diagnosed Date Osteopenia after menopause 12/12/2024 HTN (hypertension) 04/26/2024 Cervical stenosis of spine 10/27/2023 Overview (06/28/2024): Last Assessment & Plan: Patient comes in for cervical stenosis. She has history of a stroke 2010 that left her with left LE >UE hemiparesis, I looked through years of notes in [facility] records, PT eval October 2022 and [...] history of infection in June was at [facility] and [facility], on antibiotics. Patient went for her first outpatient PT visit yesterday at [facility] Dr. Fernandez's note mentions that she falls twice a month, no injuries with the fall. Patient states her COPD is in good control, no diabetes, no recent drug or alcohol use, no history of DC, liver or kidney disease. Ms. Clarke had C-spine MRI 07/21/2023 at [facility] with findings of C3-4 right paracentral [...] chronic microhemorrhage signal; similar when compared to 2020. No abnormal signal on the axial diffusion [...] requested nurse staff for referral. -Referred to [facility] PT rehab for motorized wheelchair evaluation, requested by . -Request nurse staff for shower chair requested by . -Due to new reported diplopia for the past 2 wk, referred today for brain MRI and to reconnaissance man. -I called today her neurologist Dr. Mao [...] neoplasm of breast 06/04/2022 Cerebrovascular accident (CVA) ([facility]) 022 Depressive disorder 06/04/2022 Gastroesophageal reflux disease 06/04/2022 Migraine headache 06/04/2022 Neoplasm of brain ([facility]) 06/04/2022 Pulmonary embolism 06/04/2022 Tendinitis of foot 06/04/2022 History of cardioembolic cerebrovascular acciden t (CVA) 05/26/2022 History of pulmonary embolus (PE) 05/26/2022 History of right breast cancer 05/26/2022 Bursitis of left elbow 03/23/2022 Presence of IVC filter 03/23/2022 Immature cataract 11/23/2017 Peripheral visual field defect 11/23/2017 Presbyopia 11/23/2017 Visual impairment 11/23/2017 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 11/15 Bipolar II disorder ([facility]) 12/11/2011 Cocaine dependence in remission ([facility]) 2011 Resolved Problems Problem Noted Date Diagnosed Date Resolved Date Lower urinary tract infectious disease 01/11/2013 06/28/2024 Encounters Date Type Department Care Team Description 04/07/2025 10:15 AM EDT Office Visit [facility] [address] [place] [phone] Vanna Pandey MD Dysarthria (Primary Dx); Pruritus; Dysuria; Nausea 04/07/2025 Telephone [facility] [address] [place] [phone] Vanna Pandey MD Referral 04/07/2025 Travel 04/06/[address] [address] Michelle Pantoja, PharmD 04/06/[address] [address] Asuncion Contreras ANP chart prep 04/04/2025 Telephone [facility] [address] [place] [phone] Asuncion Contreras ANP Call Back Required 04/04/2025 Telephone [facility] [address] [place] [phone] Asuncion Contreras ANP Transition Of Care (Tcm) 04/03/[address] [address] Senait Joshi RN Hospital Follow-up 04/03/2025 Refill [facility] [address] [place] [phone] Asuncion Contreras ANP Chronic GERD 03/31/2025 [facility] Out[facility] [address] [facility] [place] [address] Asuncion Contreras ANP Transition Of Care (Tcm) (HDF- Unscheduled SECOND CALL) 03/30/2025 Patient Outreach [facility] [address] [facility] [place] [address] Asuncion Contreras ANP Transition Of Care (Tcm) (HDF unscheduled) 03/29/2025 Telephone [facility] [address] [facility] [place] [address] Asuncion Contreras ANP fyi 03/22/2025 Refill [facility] [address] [place] [address] Asuncion Contreras ANP 03/22/2025 Orders Only [facility] [address] [place] [address] Kiran Sanders MD 03/21/2025 Orders Only [facility] [address] [place] [address] Kiran Sanders MD 03/14/2025 Refill [facility] [address] [place] [address] Asuncion Contreras ANP History of pulmonary embolism 02/21/2025 Telephone [facility] [address] [place] [address] Asuncion Contreras ANP fyi 02/13/2025 Refill [facility] [address] [place] [address] Asuncion Contreras ANP History of pulmonary embolism; Cervical stenosis of spine; Chronic GERD 02/06/2025 Refill [facility] [address] [place] [address] Asuncion Contreras ANP 02/06/2025 Refill [facility] [address] [place] [address] MD Primary hypertension 01/17/2025 Refill [facility] [address] [place] [address] Asuncion Contreras ANP Cervical stenosis of spine 01/16/2025 Refill [facility] [address] [place] [address] Asuncion Contreras ANP Chronic GERD 01/06/2025 Telephone [facility] [address] [place] [phone] Asuncion Contreras ANP Chart Prep from Last 3 Months Immunizations Immunization Administration Dates Next Due Influenza injectable quadriv [...] Mass Index 28.84 04/07/2025 10:38 AM EDT Plan of Treatment Upcoming Encounters Date Type Department Care Team (Late st Contact Info) Description 05/25/2025 11:00 AM EST Office Visit [facility] [address] [place] [address] Asuncion Contreras ANP [address] [place] [address] Health Maintenance Due Date Last Done Comments CT Colonography 1968 Colonoscopy 1968 Colorectal Cancer Screening 1968 FIT DNA/Cologuard 1968 FIT 1968 FOBT 1968 Sigmoidoscopy 1968 Hepatitis B Vaccines (1 of 3 - 19+ 3-dose series) 1987 Pap Smear 1989 HPV/Cotest 1998 Zoster Vaccines (1 of 2) 2018 Influenza Vaccine (#1) 2025 , 04/29/2022, 04/29/2022, Additional history exists Depression Monitoring 03/28/2025 09/26/2024, 025 SDOH Screening 09/16/2025 09/16/2024 Tobacco Screening 09/26/2025 09/26/2024 Mammogram 01/19/2026 01/19/2025, 12/22, 01/19/2025, Additional history exists Alcohol/Substance Use Screening 04/07/2026 04/07/2025 Disability Screening 04/07/2026 04/07/2025 Lipid Panel 04/29/2027 04/29/2022, 0912/2020, 01/21/2021 DTaP/Tdap/Td Vaccines (4 - Td or Tdap) 04/29/2032 04/29/2022, 04/29/2022, 04/29/2022, Additional history exists RSV Patients and Patients Aged 60 years [...] W CONTRAST Routine 03/19/2025 2:[address] ABDOMEN PELVIS WO CONTRAST Routine 03/19/2025 11:47 AM EDT LIPID PANEL, STANDARD Routine 04/29/2022 11:24 AM EST [facility]ZZ HISTORICAL HEPATITIS C AB W/REFL TO HCV RNA, QN, PCR Routine 01/21/2021 9:46 AM EDT HIV 1/2 ANTIGEN/ANTIBODY, FOURTH GENERATION W/RFL Routine 01/21/2021 9:46 AM EDT HM MAMMOGRAPHY Routine 10/29/2020 from Last 3 Months or Most Recently Relevant to Health Maintenance Results * CT Abdomen Pelvis w/ Contrast (03/19/2025 2:05 PM EDT) Anatomical Region Laterality Modality Body, Pelvis, Abdomen Computed T omography us Historical Provider MD FAJARDO CT PROCEDURES Final R esult * CT Abdomen Pelvis w/o Contrast (03/19/2025 11:47 AM EDT) Anatomical Region Laterality Modality Body, Pelvis, Abdomen Computed T omography us Historical Provider MD FAAJRDO CT PROCEDURES Final R esult * (ABNORMAL) LIPID PANEL, STANDARD (04/29/2022 11:24 AM EST) Chol/HDLC Ratio 3.6 <5.0 (calc) CONVERTED [facility]GACY LAB[facility] Cholesterol, Total 230(H) <200 mg/dL [facility] HDL Cholesterol 64 > OR = 50 mg/dL [facility] LDL Cholesterol 139(H) mg/dL (calc) [facility] Comment: Reference range: <100 Desirable range <100 mg/dL for primary prevention; <70 mg/dL for patients with CHD or diabetic patients with > or = 2 CHD risk factors. LDL-C is now calculated using the Micha-Lei calculation, which is a validated novel method providing better accuracy than the Friedewald equation in the estimation of LDL-C. Micha SS et al. ROXANNA. 2013;310(19): 4371-0936 (http://education.[employer]/faq/UIC624) Non-HDL Cholesterol 166(H) <130 mg/dL (calc) CONVERTED [facility]GACY LABS Comment: For patients with diabetes plus 1 major ASCVD risk factor, treating to a non-HDL-C goal of <100 mg/dL (LDL-C of <70 mg/dL) is considered a therapeutic option. Triglycerides 143 <150 mg/dL CONVE RTED LEGACY LABS 04/29/2022 11:2 4 AM EST us Asuncion SIN LAB BLOOD ORDERABLES Final Resul t Performing Organization Address [facility] Co de Phone Number CONVERTED LEGACY LABS * HEPATITIS C AB W/REFL TO HCV RNA, QN, PCR (01/21/2021 9:46 AM EDT) HEPATITIS C ANTIBODY NON-REACT [facility] NON-REACT [facility] INDEX 0.01 <1.00 [facility] Comment: HCV antibody was non-reactive. There is no laboratory evidence of HCV infection. In most cases, no further action is required. However, if recent HCV exposure is suspected, a test for HCV RNA (test code 14620) is suggested. For additional information please refer to http://education.[employer]/faq/INA16e9 (This link is being provided for informational/ educational purposes only.) 01/21/2021 9:46 AM EDT us Asuncion Contreras ANP HISTORICAL/NON ORDERABLE LABS Fi nal Result Performing Organization Address [facility]/ZIP Co de Phone Number [facility] [address] * HIV 1/2 ANTIGEN/ANTIBODY,FOURTH GENERATION W/RFL (01/21/2021 9:46 AM EDT) HIV-1/2 ANTIGEN AND ANTIBODIES, 4TH GENERATION W/ REFLEX NON-REACT [facility] NON-REACT [facility] Comment: HIV-1 antigen and HIV-1/HIV-2 antibodies were not detected. There is no laboratory evidence of HIV infection. PLEASE NOTE: This information has been disclosed to you from records whose confidentiality may be protected by state law. If your state requires such protection, then the state law prohibits you from making any further disclosure of the information without the specific written consent of the person to whom it pertains, or as otherwise permitted by law. A general authorization for the release of medical or other information is NOT sufficient for this purpose. For additional information please refer to http://education.[employer]/faq/VQR705 (This link is being provided for informational/ educational purposes only.) The performance of this assay has not been clinically validated in patients less than 2 years old. 01/21/2021 9:46 AM EDT [facility] LAB BLOOD ORDERABLES Final Resul t [facility] [address] from Last 3 Months or Most Recently Relevant to Health Maintenance Insurance [facility] ONE CARE < 65 [place] [id number] Care Teams Utilization Review Rn Relationship Specialty Start Date End Date Asuncion Contreras ANP [address] [place] [address] PCP - General Family Medicine 12/12/19 [email or web address] 02/01/24
--- OUTSIDE RECORDS SUMMARY | 2025-04-07 18:30 | XMS_ITS | Encounter Summary ---
Author Organization [facility] Address [address] [place] [address] Care Team Providers Care Rn Behavioral Health Name Role Phone Asuncion Contreras INTERNAL SALESPERSON Primary Care Provider [phone] Encounter Details Date Type Department Care Team Description 01/23/2022 Social Work [facility] [address] [place] [address] Michelle Minor MSW Social History Tobacco Use [...] on filedocumented in this encounter Care Teams Rn Behavioral Health Relationship Specialty Start Date End Date Asuncion Contreras NP [address] [place] [phone] PCP - General Nurse Practitioner 03/24/22 documented as of this encounter
--- OUTSIDE RECORDS SUMMARY | 2025-04-07 18:30 | XMS_ITS | Encounter Summary ---
Author Organization [employer] Address [address] [facility] [address] [place] [address] Care Team Providers Care Science Instructor Name Role Phone Asuncion Contreras Primary Care Provider [phone] Reason for Visit * Reason Onset Date Comments Med Refill 09/12/2024 Encounter Details Date Type Department Care Team ([facility] st Contact Info) Description 09/12/2024 Telephone [facility] [address] [place], [place] [phone] Asuncion Contreras ANP [address] [place] [address] Med Refill Social History Tobacco Use Types [...] 5 MG tablet To be sent to: [facility] [address] documented in this encounter Plan of Treatment Upcoming Encounters Date Type Department Care Team (Late st Contact Info) Description 05/25/2025 11:00 AM EST Office Visit [facility] [address] [place] [address] Asuncion Contreras ANP [address] [place] [address] documented as of this encounter Visit Diagnoses Not on filedocumented in this encounter Additional Health Concerns Assessment Noted Time PHQ-9 Depression Total Score: 0 09/25/19 24 3:01 PM EDT documented as of this encounter Care Teams Science Instructor Relationship Specialty Start Date End Date Asuncion Contreras ANP [address] [place] [phone] PCP - General Family Medicine 12/12/19 [employer] 02/01/24 documented as of this encounter
--- OUTSIDE RECORDS SUMMARY | 2025-04-07 18:30 | XMS_ITS | Data Portability ---
Author Organization [facility] [employer] [facility], [facility] Address [address] [place] [address] Care Team Providers Care Punchboard Stuffer Name Role Phone HIM CCA OTHER Assessment No assessment recorded. Plan of Treatment Reminders Order Date Submit Date Provider Last Modified By Organization Details Last Modified Time Details Appointments Urgent Care 2024 09:36A M Hilario Esteban MD Not available Not available Not available Lab None recorded . Referral None recorded . Procedures None recorded . Surgeries None recorded . Imaging None recorded . Medication Orders None recorded . Patient TargetsNo targets recorded. Patient InstructionsNo instructions recorded. Reason for Referral None Reported. Medical Equipment None Reported. Allergies Allergen ID Allergen Name Allergen Category Reaction Reaction Severity Criticality Documentation Date Start Date Code Code System Note Provider Name and Address Organization Details Recorded Time 52665 Product containin g penicilli n (product) medicatio n Not available Not available Not available 04/06/2025 24312 8001 SNOMED Not Available [facility] - production 08:43:42 Medications Name Sig Start Date Stop Date Status Note LastModified by Organization Details LastModified Time lamotrigine 150 mg tablet active Not Available Not Available No t Available quetiapine 300 mg tablet active Not Available Not Available No t Available metoprolol succinate ER 50 mg tablet,extended release 24 hr active Not Available Not Availabl e Not Available naltrexone 50 mg tablet active Not Available Not Available Not Available Vitamin D3 10 mcg (400 unit) tablet active Not Available Not Available Not Available exemestane 25 mg tablet active Not Available Not Available Not Available acitretin 25 mg capsule active Not Available Not Available Not Available trazodone 100 mg tablet active Not Available Not Available Not Available cephalexin 500 mg capsule active Not Available Not Available N ot Available nitrofurantoin macrocrystal 100 mg capsule active Not Available Not Available N ot Available perphenazine 4 mg tablet active Not Available Not Available No t Available gabapentin 300 mg capsule active Not Available Not Available N ot Available omeprazole 20 mg capsule,delayed release active Not Available Not Available Not Available mupirocin 2 % topical ointment active Not Available Not Avail able Not Available albuterol sulfate HFA 90 mcg/actuation aerosol inhaler active Not Available Not Availa ble Not Available Senna Plus 8.6 mg-50 mg tablet active Not Available Not Availa ble Not Available Multivitamin 50 Plus tablet active Not Available Not Available Not Available Banophen 50 mg capsule active Not Available Not Available Not Available Eliquis 5 mg tablet active Not Available Not Available Not Available Vitals Date Recorded Body temperature Oxygen saturation Oxygen saturation in Arterial blood by Pulse oximetry Heart rate Respiratory rate Systolic And Diastolic Provider Name and Address Organization Details Last Updated DateTime 4 98.7 [degF] 97 % 97 % 83 /min 18 /min 134/82 mm[Hg] Not Available [facility] - production 4 15:20:59 Date Recorded Oxygen saturation Oxygen saturation in Arterial blood by Pulse oximetry Body temperature Respiratory rate Heart rate Systolic And Diastolic Provider Name and Address Organization Details Last Updated DateTime 5 95 % 95 % 98.9 [degF] 18 /min 101 /min 144/78 mm[Hg] Not Available [facility] - production 5 09:36:31 Social History None recorded. Functional Status None recorded. Mental Status None recorded. Family History Nothing Reported. Medical History No medical history recorded. Gynecological HistoryNo gynecological history recorded. Obstetrics History GPAL:G 0 P 0 0 0 0 Past Encounters Encounter ID Performer Location Encounter Start Date Encounter Closed Date Diagnosis/Indication Diagnosis SNOMED-CT Code Diagnosis ICD10 Code Diagnosis IMO Codes Diagnosis Note [id number] Hermes Rodriguez MD Main - [facility] [address] [place] [id number] 09/08/2023 15:20:57 09/08/2023 20:05:17 Chest pain 55178848 R07.9 this 53-year-ol d female has had a dry cough with worsening chest pain radiating into her back. I am concerned about pneumonia or a cardiac issue, so I recommende d that she go to the ER for further evaluation and treatment. The patient agreed with this plan. Health Concerns Section Related Observation LastModified by Organization Detai ls LastModified Time None Recorded Concern Status LastModified by Organization Details LastModified Time None Recorded Advance Directives Directive None Recorded Payers Insurance Date Sequence Insurance Name Policy Number Policy Cisneros Covered Member ID Cisneros Member ID Guarantor Name 09/08/2023 1 [facility] - DOS ON OR AFTER 2022 - DUAL ELIGIBLE - SENIOR LIVING OPTIONS AND ONE CARE (MEDICARE REPLACEMENT/ADV ANTAGE - HMO) Hanh Clarke [id number] Hanh Clarke Notes Date Note Type Note Provider Name and Address Organization Details Recorded Time 09/08/2023 text/html ROS as noted in the [facility] CRC Nurse Triage Notes (Rafaela Villarreal): Reason For Request: VNA reporting cough with a lot of chest and upper back pain>unable to go to PCP due to hard time leaving home. Chief Complaints: Cough, Chest Pain, Pain PMH: COPD/Asthma Allergies: No Known Comments: Visiting nurse reporting cough and upper right back and chest pain. Non-productive cough started on Thursday. Denies fevers or shortness of breath. 02 sat 94% RA. Taking Tylenol OTC for symptoms. 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>left sided abdominal pain Patient Reports: Vague abdominal pain greater than 24 hours; Nausea with or without vomiting; Rash Denies: Sharp focal or diffuse abdominal pain Vomiting blood/coffee ground material Bloating, jaundice new onset with pain Nausea and vomiting greater than 2 hours with abdominal pain Tearing pain that radiates to back Food Impaction Constipation Diarrhea no blood in stool Inability to tolerate foods, fluids or daily medications Delgado Flash, circumferential delgado Delgado reported with black tissue to the area Open skin area after a fall with uncontrolled bleeding Abscess/infection with streaking noted, presence of fever or without History of cellulitis, isolated redness noted Fever and chills noted in setting of wound Bites -bugs, spider Abscess Chief Complaints: Rash, Abdominal Pain PMH: COPD/Asthma, Urinary Tract Infections (UTI) PMH Reviewed at 04/06/2025:43 Allergies Reviewed at 04/06/2025:43 Comments: 54 y.o female complains of Rash, Abdominal Pain Patients dermatology teacher calling in to make referral. Patient currently is complaining of left lower side stomach pain- gone to ER and was told she has a kidney stone in which she as an appointment for tomorrow to discuss plan at 10:15am. Patient is currently on Linezolid (day 6) for URI/UTI and Tylenol is not touching the pain. Patient states she is urinating and it delgado when she urinating frequently she has seen a little blood in her urine. Endorses nausea but no vomiting. She is able to tolerate foods, fluids, and medications. She does not have a fever, chills, endorses body aches, having issues with constipation. She has been also having all over body itching. no open sores. she has had this since she was discharged from the hospital. no detergent changes and no additions or changed to meds other than the antibiotic. requesting insted visit. I provided information on the mobile health provider response time and advised the patient and/or caregiver to monitor reported signs and symptoms. I discussed the warning signs of when to seek emergency care. Not Available Not Available Not Available OBGyn Episode No OBEpisode recorded.
--- OUTSIDE RECORDS SUMMARY | 2025-04-07 18:30 | XMS_ITS | Continuity of Care Document ---
Author Name [facility], Medical Address [address] [place] [id number] Organization Unknown Address [address] [place] [id number] Medications No known medications Problems No known problems
--- OUTSIDE RECORDS SUMMARY | 2025-04-07 18:30 | XMS_ITS | Encounter Summary ---
Author Organization [employer] Address [address] [facility] [address] [place] [address] Care Team Providers Care Track Rider Name Role Phone Asuncion Contreras Primary Care Provider [phone] Reason for Visit * Reason Onset Date Comments Transition Of Care (Tcm) 04/04/2025 Encounter Details Date Type Department Care Team ([facility] st Contact Info) Description 04/04/2025 Telephone [facility] MEDICINE [address] [place], [place] [phone] Asuncion Contreras ANP [address] [place], [place] [phone] Transition Of Care (Tcm) Social History Tobacco Use Types Packs/Day Years [...] encounter Miscellaneous Notes * Telephone Encounter - Senait Joshi RN - 04/06/2025 9:57 AM EDT Pt scheduled for HDF with Dr. Bae on 04/07/2025 at 1015. Discharge hospital summary has been scanned into pt chart under media. Medication reconciliation has been requested to be done by Michelle Pantoja in the pharmacy. * Telephone Encounter - Candice Mclaughlin RN - 04/04/2025 9:00 AM EDT Transition of Care Note Hanh Clarke is going through a recent transition of care. Emergency Room Visit Date: 04/03/2025 Facility: [facility] Diagnosis: UTI Disposition: Discharged home Discharge summary in the chart: Yes Please contact for a telehealth RN visit documented in this encounter Plan of Treatment Upcoming Encounters Date Type Department Care Team (Late st Contact Info) Description 05/25/2025 11:00 AM EST Office Visit [facility] MEDICINE [address] [place] [address] Asuncion Contreras ANP [address] [place] [address] documented as of this encounter Visit Diagnoses Not on filedocumented in this encounter Additional Health Concerns Assessment Noted Time PHQ-9 Depression Total Score: 9 09/27/19 25 4:02 PM EDT documented as of this encounter Care Teams Track Rider Relationship Specialty Start Date End Date Asuncion Contreras ANP [address] [place] [address] PCP - General Family Medicine 12/12/19 [employer] 02/01/24 documented as of this encounter
--- OUTSIDE RECORDS SUMMARY | 2025-04-07 18:30 | XMS_ITS | Encounter Summary ---
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>left sided abdominal pain , patientReports : Vague abdominal pain greater than 24 hours; Nausea with or without vomiting; Rash , denies :[ Sharp focal or diffuse abdominal pain , Vomiting blood/coffee ground material , Bloating, jaundice new onset with pain , Nausea and vomiting greater than 2 hours with abdominal pain ,"Tearing pain that radiates to back , Food Impaction , Constipation ,"Diarrhea no blood in stool , Inability to tolerate foods, fluids or daily medicatio ns , Sun Flash, circumferential sun , Sun reported with black tissue to the area , Open skin area after a fall with uncontrolled bleeding , Abscess/in fection with streaking noted, presence of fever or without , History of cellulitis, isolated redness noted , Fever and chills noted in setting of wound , Bites -bugs, spider , Abscess ], chiefComplaints : Rash, Abdominal Pain , pmh : COPD/Asthma, Urinary Tract Infections (UTI) , allergies : Penicill ins , otherAllergies :null, painAssessment : , visitOutcome : , additionalComments : 54 y.o female complains of Rash, Abdominal Pain\n\nPatients crab steamer calling in to make referral. Patient currently is complaining of left lower side stomach pain- gone to ER and was told she has a kidney stone in which she as an appointmentfor tomorrow to discuss plan at 10:15am. Patient is currently on Linezolid (day 6) for URI/UTI and Tylenol is not touching the pain. Patient states she is urinating and it sun when she urinating frequently she has seen [...] other than the antibiotic. requesting insted visit. \nI provided information on the mobilehealth provider response time and advised the patient and/or caregiver to monitor reported signs and symptoms. I discussed the warning signs of when to seek emergency care. } Dispatched to the call address for the female with abd pain and a rash. Pt states three weeks ago she went to the ED for abd pain and was told she had a large kidney stone. Since then Pt has had several trips to the ED and was placed on abx for UTI approx 7 days ago. Shortly after starting the medication she developed full body itchiness and tenderness to her skin (states it feels like pins and needles when touched). She advises she was also given oxycodone and has one pill left. She has an appt with her PCP tomorrow but no urology appt scheduled. Pt states she has left sided sharp abdominal pain that is constant. She denies fevers, n/v/d, chest pain, diff breathing/sob or other complaints at this time. Pt was found sitting on living room couch, CAOx4, airway open and patent, breathing non labored, able to speak in full sentences, -JVD, -HEENT, skin PWD with good turgor, mucous membranes pink and moist, pupils PERRL, skin color appropriate for race/warm/dry, +CMSx4, -edema/swelling, no rash appreciated, afebrile, lungs CTA. Pt was assessed. [facility] consulted. [facility] spoke directly with Pts . ED advised, Pt agreeable. 911 called for the Pt. Pt transported to [facility] per her request. ALL times are approx. IV_(FLUIDS_AND/OR_MEDICATION), MEDICATION_IM, PO_MEDICATION Written by Medical [facility] on 2025-04-06
--- OUTSIDE RECORDS SUMMARY | 2025-04-07 18:30 | XMS_ITS | Encounter Summary ---
Author Organization [employer] Address [address] [facility] [address] [facility] [address] [place] [address] Care Team Providers Care Film Crew Member Name Role Phone Asuncion Contreras Primary Care Provider [phone] Reason for Visit * Reason Onset Date Comments Hospital Follow-up 04/03/2025 Encounter Details Date Type Department Care Team ([facility] st Contact Info) Description 04/03/2025 Telephone [facility] MEDICINE [address] [place] [address] Senait Josih RN Hospital Follow-up Social History Tobacco Use Types Packs/Day Years [...] Telephone Encounter - Senait Joshi RN - 04/03/2025 1:51 PM EDT TC placed to the pt to schedule an HDF per PCP request. Pt was admitted to [facility] on 03/19/2025 for Fever, unspecified fever cause Left ureteral calculus; Cystitis; Shock Sepsis secondary to UTI documented in this encounter Plan of Treatment Upcoming Encounters Date Type Department Care Team (Late st Contact Info) Description 05/25/2025 11:00 AM EST Office Visit [facility] MEDICINE [address] [place] [address] Asuncion Contreras ANP [address] [place] [address] documented as of this encounter Visit Diagnoses Not on filedocumented in this encounter Additional Health Concerns Assessment Noted Time PHQ-9 Depression Total Score: 9 09/27/19 25 4:02 PM EDT documented as of this encounter Care Teams Film Crew Member Relationship Specialty Start Date End Date Asuncion Contreras ANP [address] [place] [address] PCP - General Family Medicine 12/12/19 [employer] 02/01/24 documented as of this encounter
--- OUTSIDE RECORDS SUMMARY | 2025-04-07 18:30 | XMS_ITS | Encounter Summary ---
Author Organization [employer] Address [address] [facility] [address] [place] [address] Care Team Providers Care Premium Representative Name Role Phone Asuncion Contreras Primary Care Provider [phone] Reason for Visit * Reason Onset Date Comments Call Back Required 04/04/2025 Encounter Details Date Type Department Care Team ([facility] st Contact Info) Description 04/04/2025 Telephone [facility] MEDICINE [address] [place], [place] [phone] Asuncion Contrersa ANP [address] [place] [address] Call Back Required Social History Tobacco Use Types Packs/Day Years [...] encounter Miscellaneous Notes * Telephone Encounter - Betty Matute RN - 04/05/2025 2:03 PM EDT Reviewed [facility] chart. Pt originally was brought to [facility] after shefell out of her bed and hit her head. There was question of intracranial hemorrhage so she was transferred to [facility] trauma center. Pt was at [facility] from 03/26-03/29. CT negative for bleed. However, prior to this fall pt was admitted at [facility] 03/19-03/24 and was being treated for urosepsis. Pt reports at [facility] that she was not taking her antibiotics at home. Treatment for urosepsis continued during [facility] hospital admission with vancomycin and cefpodoxime via PICC line. Telephone call placed to pt who reports she is doing well and taking oral antibiotics. She confirmsthat PICC line was removed prior to her leaving the hospital. She has no concerns or complaints at the moment. She would like an HDF RODRIGUEZ with any provider. Booked for 04/07 with [facility]. Informed pharmacy will call to complete med rec. Pt agreeable. Pt informed of NTTS if she has any questions or concerns while we are closed. [facility] summary scanned in under media DOS 03/31/25. * Telephone Encounter - Senait Joshi RN - 04/04/2025 2:09 PM EDT Return call placed to Alyssa at [facility] in regards to following up with the pt after recent AMA admission to [facility] for sepsis secondary to a UTI. Alyssa was advised that RN did contact the pt yesterday to schedule an HDF with PCP but was unsuccessful. Alyssa was having difficulty contacting the pt as well and went to the pt home this morning. Alyssa met with the pt and a good neighbor of the pt, López who is currently on a release to speak on the pt behalf. Alyssa advised calling López at [phone] to try and schedule the pt with PCP and set up an HDF. A VM was left to call backthe office. * Telephone Encounter - Ever Coles - 04/04/2025 1:25 PM EDT TC from Alyssa with [facility] reporting that patient was admitted to [facility] from 03/26/25 to 03/29/25 and left against medical advice . Alyssa reports that the patient is currently very ill with a hematoma and a UTI. The patient was to be referred for [facility]. Alyssa is requesting that the PCP place a referral for snf services. Contact Nette at [phone] documented in this encounter Plan of Treatment Upcoming Encounters Date Type Department Care Team (Late st Contact Info) Description 05/25/2025 11:00 AM EST Office Visit [facility] MEDICINE [address] [place], [place] [phone] Asuncion Contreras ANP [address] [place], [place] [phone] documented as of this encounter Visit Diagnoses Not on filedocumented in this encounter Additional Health Concerns Assessment Noted Time PHQ-9 Depression Total Score: 9 09/27/19 25 4:02 PM EDT documented as of this encounter Care Teams Premium Representative Relationship Specialty Start Date End Date Asuncion Contreras ANP [address] [place] [address] PCP - General Family Medicine 12/12/19 [employer] 02/01/24 documented as of this encounter
--- OUTSIDE RECORDS SUMMARY | 2025-04-07 18:31 | XMS_ITS | Encounter Summary ---
Author Organization [employer] Address [address] [facility] [address] [place] [address] Care Team Providers Care It Security Architect Name Role Phone Asuncion Contreras Primary Care Provider [phone] Reason for Visit * Reason Onset Date Comments Referral 04/07/2025 Encounter Details Date Type Department Care Team ([facility] st Contact Info) Description 04/07/2025 Telephone [facility] MEDICINE [address] [place], [place] [phone] Vanna Pandey MD [address] [place] [address] Referral Social History Tobacco Use Types Packs/Day Years [...] encounter Miscellaneous Notes * Telephone Encounter - Tahira Vu RN - 04/07/2025 3:47 PM EDT Referral for speech therapy generated and signed, pending completed PCP office visit note. * Telephone Encounter - Tahira Vu RN - 04/07/2025 3:47 PM EDT ----- Message from Vanna Pantoja MD sent at 04/07/2025 11:29 AM EDT ----- Please can you help pt getting speech Therapist at home Pt is wheelchair bound having difficulty w speech was told at hospital that will get one but deniesgetting any call Thanks documented in this encounter Plan of Treatment Upcoming Encounters Date Type Department Care Team (Late st Contact Info) Description 05/25/2025 11:00 AM EST Office Visit [facility] MEDICINE [address] [place], [place] [phone] Asuncion Contreras ANP [address] [place], [place] [phone] documented as of this encounter Visit Diagnoses Not on filedocumented in this encounter Additional Health Concerns Assessment Noted Time PHQ-9 Depression Total Score: 9 09/27/19 25 4:02 PM EDT documented as of this encounter Care Teams It Security Architect Relationship Specialty Start Date End Date Asuncion Contreras ANP [address] [place] [address] PCP - General Family Medicine 12/12/19 [employer] 02/01/24 documented as of this encounter
--- OUTSIDE RECORDS SUMMARY | 2025-04-07 18:31 | XMS_ITS | Continuity of Care Document ---
Author Organization [facility], [facility] Address [address] [place] [address] Care Team Providers Care Mathematics Lecturer Name Role Phone HIM CCA OTHER Assessment Encounter Date Assessment Date Assessment LastModified by Organization Details LastModified Time 04/06/2025 04/06/2025 As noted, we were called to see this patient regarding concerns of Abdominal pain and itchiness. Evaluation in the field was performed by my hotel recreational facilities manager colleague, as noted above, I provided real-time direction and supervision for this visit. Patient and state that she is been having pain for over a month. She was at [facility] last month where she had an 11 mm kidney stone. She had a stent placed and was put on antibiotics as she had urosepsis. Has been states that they had talked about getting transferred to [place] but they did not want to do that at the time. They were eventually discharged. states that she was then sent to [facility]. They stayed at [facility] for three days but they did not like that hospital in the left against medical advice. Patient was put on Linazolid led has been taking for the past six days. She has been having itchiness ever since then. Patient has no follow-up with urology. states that he is an appointment with his PCP tomorrow but no plan on what to do about this 11 mm stone and the antibiotic she's taking. I recommended she go back to [facility]. Patient will need labs, CT scan, and urology consultation. Patient and are agreeable. I have called in an expect to [facility] emergency department. Impression: Renal stone, itchiness Plan: ED Disposition: We discussed the situation and I recommended referral to the emergency department. This was based on Large kidney stone that requires further workup. [email or web address] Not available 04/06/2025 10:14:12 Plan of Treatment Reminders Order Date Submit Date Provider Last Modified By Organization Details Last Modified Time Details Appointments None record ed. Lab None record ed. Referral None record ed. Procedures None record ed. Surgeries None record ed. Imaging None record ed. Medication Orders None record ed. Patient TargetsNo targets recorded. Patient InstructionsNo instructions recorded. Reason for Referral None Reported. Medical Equipment None Reported. Allergies Allergen ID Allergen Name Allergen Category Reaction Reaction Severity Criticality Documentation Date Start Date Code Code System Note Provider Name and Address Organization Details Recorded Time 15563 Product containin g penicilli n (product) medicatio n Not available Not available Not available 04/06/2025 24754 8001 SNOMED Not Available [facility] 5 08:43:42 Medications Name Sig Start Date Stop [...] Not Available Not Available Vitals Date Recorded Oxygen saturation Oxygen saturation in Arterial blood by Pulse oximetry Body temperature Respiratory rate Heart rate Systolic And Diastolic Provider Name and Address Organization Details Last Updated DateTime 5 95 % 95 % 98.9 [degF] 18 /min 101 /min 144/78 mm[Hg] Not Available [facility] 09:36:31 Social History None recorded. Functional Status None recorded. Mental Status None recorded. Family History Nothing Reported. Medical History No medical history recorded. Gynecological HistoryNo gynecological history recorded. Obstetrics History GPAL:G 0 P 0 0 0 0 Past Encounters Encounter ID Performer Location Encounter Start Date Encounter Closed Date Diagnosis/Indication Diagnosis SNOMED-CT Code Diagnosis ICD10 Code Diagnosis IMO Codes Diagnosis Note [id number] Hilario Esteban MD [facility] [address] [place] [address] 04/06/2025 09:36:26 04/06/2025 12:57:05 Kidney stone 79449157 N20.0 97420 Health Concerns Section Related Observation LastModified by Organization Detai ls LastModified Time None Recorded Concern Status LastModified by Organization Details LastModified Time None Recorded Payers Encounter Date Sequence Insurance Name Policy Number Policy Cisneros Covered Member ID Cisneros Member ID Guarantor Name 04/06/2025 1 [facility] - DOS ON OR AFTER 2022 - DUAL ELIGIBLE - JAIL OPTIONS AND ONE CARE (MEDICARE REPLACEMENT/ADV ANTAGE - HMO) Hanh Clarke [id number] Hanh Clarke Notes Date Note Type Note Provider Name and Address Organization Details Recorded Time 04/06/2025 text/html ROS as noted in the 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 Patient currently [...] signs of when to seek emergency care. ..................... ..................... ..................... ..................... ..................... ..................... ............... Photographic Platemaker Note From Nicolas Gilbert: Dispatched to the call address for the [...] appreciated, afebrile, lungs CTA. Pt was assessed. [facility] consulted. [facility] spoke directly with Pts . ED advised, Pt agreeable. 911 called for the Pt. Pt transported to [facility] per her request. ALL times are approx. ..................... ..................... ..................... ..................... ..................... ..................... ............... [facility] Consulted: Hilario Esteban ..................... ..................... ..................... ..................... ..................... ..................... ............... Disposition: Fulfilled Hilario Esteban MD [address] [facility], [place], [address], TONNY - Familio 04/06/2025 11:25:20 OBGyn Episode No OBEpisode recorded.
--- OUTSIDE RECORDS SUMMARY | 2025-04-07 18:31 | XMS_ITS | Encounter Summary ---
Author Organization [employer] Address [address] [facility] [address] [place] [address] Care Team Providers Care Plan Examiner Name Role Phone Asuncion Contreras Primary Care Provider [phone] Encounter Details Date Type Department Care Team (Latest Contact Info) Description 04/07/2025 Travel Social History Tobacco Use Types Packs/Day [...] Description 05/25/2025 11:00 AM EST Office Visit [facility] [address] [place] [address] Asuncion Contreras ANP [address] [place] [address] documented as of this encounter Visit Diagnoses Not on filedocumented in this encounter Additional Health Concerns Assessment Noted Time PHQ-9 Depression Total Score: 9 09/27/19 25 4:02 PM EDT documented as of this encounter Care Teams Plan Examiner Relationship Specialty Start Date End Date Asuncion Contreras ANP [address] [place] [address] PCP - General Family Medicine 12/12/19 [employer] 02/01/24 documented as of this encounter
== END 2025-04-07 16:28 | disposition home or self-care (01) ==
LOC: HO.LNP 16:27
PROVIDERS: Visit Provider Student in an Organized Health Care Education/Training Program
DX: R30.0 Dysuria (principal)
CPT/HCPCS: 87086